=== PATIENT | female | born 1975 | race Caucasian/White ===

== ENCOUNTER 2024-12-28 16:59 | Inpatient (IN) | payer OTHER, SELFPAY ==
[2024-12-28 17:15] VITALS: BP 134/86; PULSE 88; RESP 16; TEMP 37.1; O2SAT 98
[2024-12-28 18:34] VITALS: BMI 24.4
--- NOTE | 2024-12-28 19:14 | PC.NURSE ---
Ligia was admitted to M3 at 1707 from [facility] Pod on 12B from [facility] CCU for treatment following intentional overdose 12/27 on an unknown number of prescribed medications. She was medically cleared. Pt has had numerous stressors including a recent DUI and adult son was recently incarcerated.? On admission she is alert, fully oriented, anxious and extremely ambivalent. She is reluctant to sign in, sign ROIs, choose menu items, etc. Mood is depressed. Affect is very anxious. She denies uditory, visual, tactile, other hallucinations.? She denies ideation, plan or intent to harm self or others currently. Appetite is good,? sleep is poor and focus is impaired.? She denies current physical complaint. She is on q 15 min safety checks.
[2024-12-28 20:00] VITALS: BP 152/74; PULSE 106; RESP 16; TEMP 36.9; O2SAT 97
--- NOTE | 2024-12-29 03:23 | PC.NURSE ---
requesting additional dose of trazodone reporting ''not sleeping well'' educated on use of sleep aid after 0300 time but requests to take. administered as requested.
[2024-12-29 07:00] VITALS: BMI 24.4
[2024-12-29 07:37] VITALS: BP 144/64; PULSE 100; RESP 18; TEMP 36.2; O2SAT 95
--- NOTE | 2024-12-29 08:14 | HO.PM.IMCN ---
History of Present Illness Data of Consult Service Date: 12/29/24 Primary Care Provider: Unknown Physician HPI Reason for consult: Medical H&P 49-year-old female with a past medical history of anxiety disorder, arthritis bipolar 1 disorder, alcohol use disorder, moderate depressive disorder who presented to [facility] with an intentional overdose of lithium. She is admitted to inpatient psychiatric unit for further care. On exam she denies any Review of Systems Review of Systems: Denies any shortness of breath, chest pain, dizziness, lightheadedness, abdominal pain or discomfort, nausea vomiting or diarrhea PMFSH Social History Household Members: None Housing: Apartment Do you presently have visiting nurse or other home services: No Patient Tobacco Use Status: Current someday Tobacco user Tobacco use type: Cigarette Cigarette Packs Per Day: 0 Cigarettes Per Day: 0 Years Smoked: 7 Smoked in Last 30 Days: Yes Patient Interested in Nicotine Replacement: No Patient Given Instructions on How to Stop Smoking: No Second Hand Smoke Exposure: No Currently Displaying Signs/Symptoms of Drug Intoxication Withdrawal: No Have you been hit, kicked, punched, or otherwise hurt by someone within the past year? If so, by whom?: No Do you feel safe in your current relationship?: No Is there a partner from a previous relationship who is making you feel unsafe now?: No Are you made to feel afraid or neglected: No Advance Directives: No Advance Directives Information Provided: No Do you have thoughts of harming others: None Do you have a plan to hurt others: No Plan Recently lost weight without trying: No Eating poorly because of decreased appetite: No Nutrition Risks: No Nutritional Risk Patient : No : No Poor oral hygiene: No service: No Sexual orientation: Straight/Heterosexual Meds Allergies Allergy/AdvReac Type Severity Reaction Status Date / Time No Known Allergies Allergy Unknown UNKNOWN Unverified 02/02/20 17:33 Active Medications: Current Medications Acetaminophen (Acetaminophen 325 Mg Tablet) 650 mg PO Q6H PRN PRN Reason: Headache/Pain, Scale 1-10 Al Hydroxide/Mg Hydroxide (Magnesium Hydrox/Alum Hydrox 30 Ml Oral.Susp) 30 ml PO Q6H PRN PRN Reason: Heartburn/Nausea Cariprazine (Cariprazine Hcl 3 Mg Capsule) 3 mg PO BEDTIME AGUS Last Admin: 12/28/24 21:26 Dose: 3 mg Clonazepam (Clonazepam 0.5 Mg Tablet) 0.5 mg PO DAILY PRN PRN Reason: severe anxiety Lamotrigine (Lamotrigine 25 Mg Tablet) 25 mg PO BEDTIME AGUS Last Admin: 12/28/24 21:27 Dose: 25 mg Magnesium Hydroxide (Milk Of Magnesia 30 Ml Oral.Susp) 30 ml PO DAILY PRN PRN Reason: Constipation Melatonin (Melatonin 3 Mg Tablet) 9 mg PO BEDTIME AGUS Last Admin: 12/28/24 21:26 Dose: 9 mg Multivitamins/Vitamin C (Multivitamin Tablet) 1 tab PO DAILY AGUS Nicotine (Nicotine 21 Mg Patch.Td24) 21 mg TRANSDERMA DAILY PRN PRN Reason: nicotine craving Nicotine Polacrilex (Nicotine Polacrilex 2 Mg Gum) 2 mg BUCCAL Q2H PRN PRN Reason: Nicotine Cravings Quetiapine Fumarate (Quetiapine Fumarate 50 Mg Tablet) 50 mg PO BEDTIME AGUS Last Admin: 12/28/24 21:26 Dose: 50 mg Trazodone HCl (Trazodone Hcl 50 Mg Tablet) 50 mg PO BEDTIME MRX1 PRN PRN Reason: Insomnia Last Admin: 12/29/24 03:22 Dose: 50 mg Home Medications ?Medication ?Instructions ?Recorded ?Confirmed ?Last Taken ?Type cariprazine 3 mg capsule (Vraylar) 3 mg PO DAILY 12/28/24 12/28/24 Unknown History clonazepam 0.5 mg tablet 0.5 mg PO DAILY 12/28/24 12/28/24 Unknown History ibuprofen 600 mg tablet 600 mg PO TID PRN Pain 12/28/24 12/28/24 Unknown History lamotrigine 25 mg tablet 50 mg PO DAILY 12/28/24 12/28/24 Unknown History melatonin 5 mg tablet 5 mg PO DAILY 12/28/24 12/28/24 Unknown History multivitamin with folic acid 400 1 tab PO DAILY 12/28/24 12/28/24 Unknown History mcg tablet (Daily-Bryant (with folic acid)) pregabalin 150 mg capsule 150 mg PO DAILY 12/28/24 12/28/24 Unknown History pregabalin 75 mg capsule 75 mg PO BEDTIME 12/28/24 12/28/24 Unknown History quetiapine 50 mg tablet,extended 50 mg PO BEDTIME 12/28/24 12/28/24 Unknown History release 24 hr tizanidine 4 mg tablet 4 mg PO BID 12/28/24 12/28/24 Unknown History ubrogepant 50 mg tablet (Ubrelvy) 50 mg PO DAILY 12/28/24 12/28/24 Unknown History zolpidem 5 mg tablet 5 mg PO BEDTIME PRN Insomnia 12/28/24 12/28/24 Unknown History Physical Exam Vital Signs and Narrative: Vital Signs: Last Vital Signs Temp 97.1 F 12/29/24 07:37 Pulse 100 12/29/24 07:37 Resp 18 12/29/24 07:37 BP 144/64 H 12/29/24 07:37 Pulse Ox 95 12/29/24 07:37 O2 Del Method Room Air 12/29/24 07:37 BMI result Body Mass Index 24.4 CONST: Alert and oriented, in NAD. Well nourished HEENT: Normocephalic, atraumatic, MMM, Eyes clear, Neck supple RESP: Lungs clear, RRR even and regular HEART:,RRR, S1, S2. No murmur, no edema GI:Abdomen Soft NT, ND. + BS times four :Deferred SKIN: Warm dry and intact, no visible lesions or rashes NEURO:CN II-XII Intact bilaterally, Sensation intact. Speech clear PSYCH: Normal affect Results Labs 12/29/24 07:57 Assessment and Plan (1) Bipolar 1 disorder, depressed, moderate: Status: Acute Plan Bipolar disorder/depression/suicidal ideation Treatment plan per Psychiatry [facility]
--- NOTE | 2024-12-29 08:59 | HO.PSYADMNOT ---
HPI Date of Service: 12/29/24 Chief Complaint: Ingestion of toxic substance, depression Sources of Information: patient interviewed, chart reviewed and crisis/core team assessment reviewed HPI Subjective Notes: Church Warning and Section 12B Healthcare Proxy: No Guardianship: No Medical Problems Affecting Mental Status: No Narrative: Meet with patient on 12/28 at 1912 and again on 12/29/24 at 1030. Patient is a 49 years old cisgender female referred to us from [facility] with history of ADHD and bipolar I he was admitted CCU following a serious intentional overdose on prescribed medications, included Xanax Seroque,l risperidone, tizanidine,and lithium. Patient reported that that the overdose was impulsive and that she did not mean it . 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 These stressors have contributed to a sustained a period of depressive symptoms and suicidal ideation. Patient on admission admit that I took so many pills: Seroquel, risperidone, lithium, tizanidine which was both new and old prescriptions. She said that I did not want to hurt myself. Just wanted more help . Patient is so ambivalent that she can not decided to sign herself in for voluntarily for the treatment or remain on section 12. It takes 2 different person to explain it to her at different times however she still feeling confused with what she needs to do even though she expressed that I want help . Precipitants: She has been sure goal with a lot of stressors. Reported that she lost a lot of things, ensure goal to get help. Reports she has a DUI from last year, lost her job, struggle with financial. Her mom also a year ago, a family young member also lately. She lost of her car and her license. Reports she has limited support from outside. Reports that she is not a big drinker. Last drink was the day before she overdosed but she has been going to AA meeting. She denies other substance use. Denies trauma history. Besides the DUI, does no legal issues. No access to gun. Currently discerned denies SI/SIB/ HI/AVH. No SI be history, denies SI history, denies suicide attempts history. Trouble with sleep: Both falling asleep and staying asleep. Appetite is okay. Mood is anxious, increased anxiety and depression experience 10/10 on a scale of 0-10. However, she states that I am grateful to be here . She is depressed, anxious, ambivalent, but mostly pleasant and cooperative. Goals for this admission is able to reach out for help, and able to walk voluntarily at this senior care after discharge as she has been doing that in the past when she still has her car. History of IPLOCx1 last year when she had manic episode, reported that she was crossing the line/on some worthy at a gas station, impulsive and they called the ambulance to get her to the hospital. . Past Psychiatric History: Hx of 1 [facility] admission last year for manic episode. Has psychiatrist and therapist currently but do not want us to contact them. Do not sign consent to release information to anyone. Medication trial: Risperidone: Feel like she was hitting by the bus when was taking. [place]sey[place] carbonate: She was afraid of kidney function. Trazodone does not work Currently on Seroquel, Lamictal, Vraylar, melatonin, Lyrica, Ambien. Medical Evaluation Reviewed: Hospitalist Leigha Pending [facility] Narrative: Anxiety disorder Arthritis, IBS, Degenerated disc Narrative: Appendix removed in 2018 Family History: She was adopted when she was an infant. Biological mom passed, her dad has bipolar schizophrenic. Social History: She is single, have 2 children S 17 and 23 years old. She has contact with them. 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 Substance History: She had DUI earlier this year, lost her car and license due to drinking. Currently attempted to AA meeting. Last drink was the day before she overdose, denies other substance use Trauma History: Denies trauma history Diagnostics Vital Signs (24Hr): Vital Signs - 24 hr 12/28/24 17:15 12/28/24 20:00 12/29/24 07:37 Temperature 98.8 F 98.4 F 97.1 F Pulse Rate 88 106 H 100 Respiratory Rate 16 16 18 Blood Pressure 134/86 152/74 H 144/64 H Pulse Oximetry 98 97 95 Oxygen Delivery Method Room Air Room Air Room Air BMI result Body Mass Index 24.4 Labs 12/29/24 07:57 Meds/Allergies Meds Home Medications ?Medication ?Instructions ?Recorded ?Confirmed ?Type cariprazine 3 mg capsule (Vraylar) 3 mg PO DAILY 12/28/24 12/28/24 History clonazepam 0.5 mg tablet 0.5 mg PO DAILY 12/28/24 12/28/24 History ibuprofen 600 mg tablet 600 mg PO TID PRN Pain 12/28/24 12/28/24 History lamotrigine 25 mg tablet 50 mg PO DAILY 12/28/24 12/28/24 History melatonin 5 mg tablet 5 mg PO DAILY 12/28/24 12/28/24 History multivitamin with folic acid 400 1 tab PO DAILY 12/28/24 12/28/24 History mcg tablet (Daily-Bryant (with folic acid)) pregabalin 150 mg capsule 150 mg PO DAILY 12/28/24 12/28/24 History pregabalin 75 mg capsule 75 mg PO BEDTIME 12/28/24 12/28/24 History quetiapine 50 mg tablet,extended 50 mg PO BEDTIME 12/28/24 12/28/24 History release 24 hr tizanidine 4 mg tablet 4 mg PO BID 12/28/24 12/28/24 History ubrogepant 50 mg tablet (Ubrelvy) 50 mg PO DAILY 12/28/24 12/28/24 History zolpidem 5 mg tablet 5 mg PO BEDTIME PRN Insomnia 12/28/24 12/28/24 History Allergies Allergies Allergy/AdvReac Type Severity Reaction Status Date / Time No Known Allergies Allergy Unknown UNKNOWN Unverified 02/02/20 17:33 Mental Status Exam Mental Status Exam Narrative: Patient is alert and oriented x4; behavior is cooperative, moderate anxiety and depression; patient is not in distress; dressed in hospital attire with kempt hair and adequate hygiene; mood is described as anxious and affect and mood are congruent; eye contact appropriate; Speech is normal rate, volume and prosody and not pressured; no psychomotor agitation/retardation present; thought process is ambivalent but goal directed; Thought content is on treatmentt, pertinent to relevant topics and without any delusional content, paranoid ideation or grandiosity; denies any SI/SIB/HI. Denies AH and there is no evidence of perceptual disturbance. Patient's insight and judgment poor Assessment & Plan Assessment & Plan (1) Overdose: Status: Acute Code(s): T50.901A - Poisoning by unspecified drugs, medicaments and biological substances, accidental (unintentional), initial encounter (2) Bipolar 1 disorder, depressed, moderate: Status: Acute Code(s): F31.32 - Bipolar disorder, current episode depressed, moderate (3) Alcohol use disorder: Status: Acute Code(s): F10.90 - Alcohol use, unspecified, uncomplicated Plan HPI: Patient is a 49 years old cisgender female referred to us from [facility] with history of ADHD and bipolar I he was admitted CCU following a serious intentional overdose on prescribed medications, included Xanax Seroque,l risperidone, tizanidine, and lithium. Patient reported that that the overdose was impulsive and that she did not mean it . 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 These stressors have contributed to a sustained a period of depressive symptoms and suicidal ideation. Formulation/clinical reasoning: Lots of stressors, loss of license and car last year due to alcohol use, loss of her job last year, son is incarcerated, little support from family. Recently restart on medication after couple of months not seen the outpatient psychiatrist, inconsistent taking medication. History of bipolar 1, history of ADHD and alcohol use. She overdose on prescriptions, with lithium was 1.28 and 1.4 at some point when was just admitted due to overdose. Given the above information, patient would not be safe in less restrictive environment. She will be admitted for her own safety, monitor for mental status change, medication management, provide therapeutic environment for coping skills, provide patient with resources and back to psychiatry services as aftercare upon discharge. Hospital course: 12/28/24: Lamictal 25 mg x2 days, we will titrate up to therapeutic dose. Slow and low. Seroquel 50 mg at bedtime for insomnia/severe anxiety. Klonopin 0.5 twice a day b.i.d. p.r.n. for severe anxiety. Melatonin 9 mg daily at bedtime for insomnia. Reported that she takes 20 mg total a day from outside [id number]. Vraylar 3mg daily for mood. 12/29/24: Lidocaine patch once daily for lower back pain. Tizanidine 4 mg 3 times a day as needed for muscle spasm/pain Plan Patient on 15 minute checks for safety. Admitted to M3- section 12B. Work with treatment team to do collateral and FLU appointment for aftercare. Ltihium level on 12/28 prior. Contact the hospitalist regarding hospitalist consultation on admission: pending. Patient educated on: diagnosis, medication risk/benefits, substance abuse and therapeutic strategies Informed Consent: understands and further education needed Reason for continued inpatient stay Substantial Risk for: harm to self (Reason for admission is overdose on own prescriptions) and med/psych decompensation Statement Statement: I have reviewed the history and physical and performed a pertinent examination on my patient. No changes have occurred unless specified. If the History and Physical was not performed prior to admission, the Hospitalist's service will be consulted for completing the admission physical. Time Spent With Patient Time: Total time managing care of this patient today ____ minutes.
[2024-12-29 09:10] LABS: Alanine Aminotransferase 20 U/L (0-31); Albumin Level 4.8 g/dL (3.5-5.0); Alkaline Phosphatase 49 U/L (39-117); Anion Gap 13 (12-20); Aspartate Amino Transferase 21 U/L (5-31); Blood Urea Nitrogen 6 mg/dL (9-16); Calcium 9.8 mg/dL (8.4-10.2); Carbon Dioxide 27 mmol/L (22-29); Chloride 107 mmol/L (96-108); Cholesterol 171 mg/dL (<200); Creatinine Clr Calc Pharmacy 87.8; Estimated Glomerular Filt Rate > 60; HDL Cholesterol 64 mg/dL (>40); Hemoglobin A1C 122.8515 umol/L; Potassium 4.0 mmol/L (3.3-5.1); Sodium 143 mmol/L (135-145); Total Hemoglobin (HGBA1C) 3567.8624 umol/L; Total Protein 7.5 g/dL (6.5-8.0); Triglycerides 74 mg/dL (<150)
[2024-12-29 09:29] LABS: Free T4 (Free Thyroxine) 1.04 ng/dL (0.71-1.85); Thyroid Stimulating Hormone 2.57 uIU/mL (0.32-4.0)
[2024-12-29 12:17] LABS: Lithium 0.21 mmol/L (0.60-1.20)
[2024-12-29] MEDS: Lidocaine 4 % Patch ADH..PATCH 1 PATCH TRANSDERMA (12:35)
[2024-12-29 19:30] VITALS: BP 146/70; PULSE 83; RESP 18; TEMP 37.1; O2SAT 97
[2024-12-30 07:10] VITALS: BP 114/65; PULSE 95; RESP 20; TEMP 36.4; O2SAT 99
[2024-12-30] MEDS: Milk of Magnesia 30 ML ORAL.SUSP PO (08:46)
[2024-12-30] MEDS: Lidocaine 4 % Patch ADH..PATCH 1 PATCH TRANSDERMA (10:24)
--- NOTE | 2024-12-30 10:34 | P.PNIM_ITS ---
Subjective Subjective Date of Service: 12/30/24 Interval History: Patient is reporting increased vaginal discharge and foul odor. She reports a history of BV. Denies any abdominal pain, denies any dysuria, denies any recent sexual activity. Not concerned for any STDs. Her vitals were stable, she has been afebrile. Review of Systems Denies any shortness of breath, chest pain, dizziness, lightheadedness, abdominal pain or discomfort, nausea vomiting or diarrhea Physical Exam 2 Exam: Exam: CONST: Alert and oriented, in NAD. Well nourished HEENT: Normocephalic, atraumatic, MMM RESP: Lungs clear, RRR even and regular HEART:,RRR, S1, S2. No murmur, no edema GI:Abdomen Soft NT, ND. + BS times four :Deferred SKIN: Warm dry and intact, no visible lesions or rashes NEURO:CN II-XII Intact bilaterally, Sensation intact. Speech clear PSYCH: Normal affect Vital Signs: Vital Signs: Last Vital Signs Temp 97.5 F 12/30/24 07:10 Pulse 95 12/30/24 07:10 Resp 20 12/30/24 07:10 BP 114/65 12/30/24 07:10 Pulse Ox 99 12/30/24 07:10 O2 Del Method Room Air 12/30/24 07:10 BMI result Body Mass Index 24.4 Objective Data Active Medications Acetaminophen (Acetaminophen 325 Mg Tablet) 650 mg PO Q6H PRN PRN Reason: Headache/Pain, Scale 1-10 Last Admin: 12/30/24 02:15 Dose: 650 mg Documented By: DASHAWN Al Hydroxide/Mg Hydroxide (Magnesium Hydrox/Alum Hydrox 30 Ml Oral.Susp) 30 ml PO Q6H PRN PRN Reason: Heartburn/Nausea Cariprazine (Cariprazine Hcl 3 Mg Capsule) 3 mg PO BEDTIME [facility] Last Admin: 12/29/24 21:06 Dose: 3 mg Documented By: GUILLAUME Clonazepam (Clonazepam 0.5 Mg Tablet) 0.5 mg PO DAILY PRN PRN Reason: severe anxiety Lamotrigine (Lamotrigine 25 Mg Tablet) 25 mg PO BID [facility] Last Admin: 12/30/24 10:19 Dose: 25 mg Documented By: ZBIGNIEW Lidocaine (Lidocaine 4 % Patch Adh..Patch) 1 patch TRANSDERMA DAILY [facility]; Protocol Magnesium Hydroxide (Milk Of Magnesia 30 Ml Oral.Susp) 30 ml PO DAILY PRN PRN Reason: Constipation Last Admin: 12/30/24 08:46 Dose: 30 ml Documented By: ZBIGNIEW Melatonin (Melatonin 3 Mg Tablet) 9 mg PO BEDTIME [facility] Last Admin: 12/29/24 21:00 Dose: 9 mg Documented By: GUILLAUME Multivitamins/Vitamin C (Multivitamin Tablet) 1 tab PO DAILY [facility] Last Admin: 12/30/24 08:45 Dose: 1 tab Documented By: ZBIGNIEW Nicotine (Nicotine 21 Mg Patch.Td24) 21 mg TRANSDERMA DAILY PRN PRN Reason: nicotine craving Nicotine Polacrilex (Nicotine Polacrilex 2 Mg Gum) 2 mg BUCCAL Q2H PRN PRN Reason: Nicotine Cravings Pregabalin (Pregabalin 50 Mg Capsule) 50 mg PO BID [facility] Last Admin: 12/30/24 08:45 Dose: 50 mg Documented By: ZBIGNIEW Quetiapine Fumarate (Quetiapine Fumarate 100 Mg Tablet) 100 mg PO BEDTIME [facility] Tizanidine HCl (Tizanidine Hcl 4 Mg Tablet) 4 mg PO TID PRN PRN Reason: lower back pain/muscle spasm Last Admin: 12/30/24 08:45 Dose: 4 mg Documented By: ZBIGNIEW Trazodone HCl (Trazodone Hcl 50 Mg Tablet) 50 mg PO BEDTIME MRX1 PRN PRN Reason: Insomnia Last Admin: 12/30/24 02:16 Dose: 50 mg Documented By: LIARDIP Labs 12/29/24 07:57 Labs: Laboratory Results - last 24 hr 12/29/24 11:45 [place] 0.21 L Assessment and Plan (1) Bacterial vaginosis: Status: Acute Plan Suspected Bacterial Vaginosis Patient has a history of this in the past, symptoms are similar. Will obtain a swab, if positive patient prefers oral medications. Bipolar disorder/depression/suicidal ideation Treatment plan per Psychiatry [facility] Quality Stroke Does the patient have a stroke diagnosis?: No VTE Prior VTE?: No VTE Risk Level:: Medical - low VTE Device Contraindication: Treatment Not Indicated VTE Drug Contraindication: Treatment Not Indicated
--- NOTE | 2024-12-30 11:49 | HO.PSYCHPN ---
Subjective Subjective Date of Service: 12/30/24 Reason For Visit: Ingestion of toxic substance, depression Subjective Notes: Conditional Voluntary Healthcare Proxy: No Guardianship: No Medical Problems Affecting Mental Status: No Interim History: Medical record and nursing notes reviewed; case discussed during rounds with team/nursing staff, and met with patient for supportive therapy/psychoeducation, as well as medication management. Patient slept for 6 hours, compliant with medications, observed visible and social with peers and staff. Anxious, depressed, less ambivalence. She has questioned related to legal. Explained to patient a couple of times, she finally make her decision to sign herself in voluntarily with plan to be discharged next Thursday. She gave an example of someone also overdose and was let go home. Explained to patient that care is individualized. Reports anxiety is better today 5/10. Depression is 4/10. Self reports slept better last night. Discussed with her regarding medication change, she is receptive to the plan. Denies other safety concerns, no suicidal thoughts, no hallucinations. No ADLs issues. Medication Compliance: Yes Side effects from medications: No Attending Groups: Yes Review of Systems Acute medical concerns: No Medical Review of Systems: unchanged Review of Systems Review of Systems Constitutional: Denies fatigue and Denies fever(s) Cardiovascular: Denies chest pain and Denies dyspnea Respiratory: Denies dyspnea Gastrointestinal: Denies abdominal pain Psychiatric: denies suicidal ideation Endocrine: Denies fatigue Yes all other systems are reviewed and are negative Mental Status Exam Mental Status Exam Narrative: Patient is alert and oriented x4; behavior is cooperative, moderate anxiety and depression; patient is not in distress; dressed in casual attire with kempt hair and adequate hygiene; mood is described as anxious and depressed but better and affect and mood are congruent; eye contact appropriate; Speech is normal rate, volume and prosody and not pressured; no psychomotor agitation/retardation present; thought process is less ambivalent but goal directed; Thought content is on treatment, pertinent to relevant topics and without any delusional content, paranoid ideation or grandiosity; denies any SI/SIB/HI. Denies AH and there is no evidence of perceptual disturbance. Patient's insight and judgment improving Diagnostics Vital Signs (24Hr): Vital Signs - 24 hr 12/29/24 19:30 12/30/24 07:10 Temperature 98.7 F 97.5 F Pulse Rate 83 95 Respiratory Rate 18 20 Blood Pressure 146/70 H 114/65 Pulse Oximetry 97 99 Oxygen Delivery Method Room Air Room Air BMI result Body Mass Index 24.4 Labs 12/29/24 07:57 Labs: Laboratory Results - last 48 hr 12/29/24 12/29/24 07:57 11:45 Sodium 143 Potassium 4.0 Chloride 107 Carbon Dioxide 27 Anion Gap 13 BUN 6 L Creatinine 0.77 Estim Creat Clear Calc 87.8 Estimated GFR > 60 Random Glucose 101 Estimat Average Glucose 105 Hemoglobin A1c % 5.3 Calcium 9.8 Total Bilirubin 1.1 H AST 21 ALT 20 Alkaline Phosphatase 49 Total Protein 7.5 Albumin 4.8 Triglycerides 74 Cholesterol 171 LDL Cholesterol, Calc 93 HDL Cholesterol 64 TSH 2.57 Free T4 1.04 [place] 0.21 L Medications Medications Current Medications Acetaminophen (Acetaminophen 325 Mg Tablet) 650 mg PO Q6H PRN PRN Reason: Headache/Pain, Scale 1-10 Last Admin: 12/30/24 02:15 Dose: 650 mg Al Hydroxide/Mg Hydroxide (Magnesium Hydrox/Alum Hydrox 30 Ml Oral.Susp) 30 ml PO Q6H PRN PRN Reason: Heartburn/Nausea Cariprazine (Cariprazine Hcl 3 Mg Capsule) 3 mg PO BEDTIME [facility] Last Admin: 12/29/24 21:06 Dose: 3 mg Clonazepam (Clonazepam 0.5 Mg Tablet) 0.5 mg PO DAILY PRN PRN Reason: severe anxiety Lamotrigine (Lamotrigine 25 Mg Tablet) 25 mg PO BID [facility] Last Admin: 12/30/24 10:19 Dose: 25 mg Lidocaine (Lidocaine 4 % Patch Adh..Patch) 1 patch TRANSDERMA DAILY [facility]; Protocol Magnesium Hydroxide (Milk Of Magnesia 30 Ml Oral.Susp) 30 ml PO DAILY PRN PRN Reason: Constipation Last Admin: 12/30/24 08:46 Dose: 30 ml Melatonin (Melatonin 3 Mg Tablet) 9 mg PO BEDTIME [facility] Last Admin: 12/29/24 21:00 Dose: 9 mg Multivitamins/Vitamin C (Multivitamin Tablet) 1 tab PO DAILY [facility] Last Admin: 12/30/24 08:45 Dose: 1 tab Nicotine (Nicotine 21 Mg Patch.Td24) 21 mg TRANSDERMA DAILY PRN PRN Reason: nicotine craving Nicotine Polacrilex (Nicotine Polacrilex 2 Mg Gum) 2 mg BUCCAL Q2H PRN PRN Reason: Nicotine Cravings Pregabalin (Pregabalin 50 Mg Capsule) 50 mg PO BID [facility] Last Admin: 12/30/24 08:45 Dose: 50 mg Quetiapine Fumarate (Quetiapine Fumarate 100 Mg Tablet) 100 mg PO BEDTIME [facility] Tizanidine HCl (Tizanidine Hcl 4 Mg Tablet) 4 mg PO TID PRN PRN Reason: lower back pain/muscle spasm Last Admin: 12/30/24 08:45 Dose: 4 mg Trazodone HCl (Trazodone Hcl 50 Mg Tablet) 50 mg PO BEDTIME MRX1 PRN PRN Reason: Insomnia Last Admin: 12/30/24 02:16 Dose: 50 mg Allergies Allergies Allergy/AdvReac Type Severity Reaction Status Date / Time No Known Allergies Allergy Unknown UNKNOWN Unverified 02/02/20 17:33 Assessment & Plan Assessment & Plan (1) Bipolar 1 disorder, depressed, moderate: Status: Acute Code(s): F31.32 - Bipolar disorder, current episode depressed, moderate (2) Alcohol use disorder: Status: Acute Code(s): F10.90 - Alcohol use, unspecified, uncomplicated (3) Overdose: Status: Acute Code(s): T50.901A - Poisoning by unspecified drugs, medicaments and biological substances, accidental (unintentional), initial encounter Plan HPI: Patient is a 49 years old cisgender female referred to us from [facility] with history of ADHD and bipolar I he was admitted CCU following a serious intentional overdose on prescribed medications, included Xanax Seroque, risperidone, tizanidine, and lithium (some of them are from old bottle). Patient reported that that the overdose was impulsive and that she did not mean it . 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 These stressors have contributed to a sustained a period of depressive symptoms and suicidal ideation. Formulation/clinical reasoning: Lots of stressors, loss of license and car last year due to alcohol use, loss of her job last year, son is incarcerated, little support from family. Recently restart on medication after couple of months not seen the outpatient psychiatrist, inconsistent taking medication. History of bipolar 1, history of ADHD and alcohol use. She overdose on prescriptions, with lithium was 1.28 and 1.4 at some point when was just admitted due to overdose. Given the above information, patient would not be safe in less restrictive environment. She will be admitted for her own safety, monitor for mental status change, medication management, provide therapeutic environment for coping skills, provide patient with resources and back to psychiatry services as aftercare upon discharge. Hospital course: 12/28/24: Lamictal 25 mg x2 days, we will titrate up to therapeutic dose. Slow and low. Seroquel 50 mg at bedtime for insomnia/severe anxiety. Klonopin 0.5 twice a day b.i.d. p.r.n. for severe anxiety. Melatonin 9 mg daily at bedtime for insomnia. Reported that she takes 20 mg total a day from outside [id number]. Vraylar 3mg daily for mood. 12/29/24: Lidocaine patch once daily for lower back pain. Tizanidine 4 mg 3 times a day as needed for muscle spasm/pain Lyrika 50mg BID for severe back pain 12/30/24: Patient slept for 6 hours, compliant with medications, observed visible and social with peers and staff. Anxious, depressed, less ambivalence. She has questioned related to legal. Explained to patient a couple of times, she finally make her decision to sign herself in voluntarily with plan to be discharged next Thursday. She gave an example of someone also overdose and was let go home. Explained to patient that care is individualized. Reports anxiety is better today 5/10. Depression is 4/10. Self reports slept better last night. Discussed with her regarding medication change, she is receptive to the plan. Denies other safety concerns, no suicidal thoughts, no hallucinations. No ADLs issues. Increased Lamictal 25 daily to BID. Increase Seroquel 100mg at HS for severe insomnia. Remind patient she has lidocaine patch daily for her back pain in addition to Lyrica. Plan Patient on 15 minute checks for safety. Admitted to [facility]- signed CV on 12/30/24 with tentative plan to be discharged on Thursday on 01/04/25. Work with treatment team to do collateral and FLU appointment for aftercare. [place] level on 12/28 prior to transferred from [facility] 0.66. on 12/29/24: 0.[address]. [address] for hospitalist for possible bacterial vagionosis: Test +. Hospitalist notified: pending treatment Patient educated on: diagnosis, medication risk/benefits, substance abuse and therapeutic strategies Informed Consent: understands Reason for continued inpatient stay Substantial Risk for: med/psych decompensation Time Spent With Patient Time: Total time managing care of this patient today ____ minutes.
[2024-12-30 14:42] LABS: Bacterial Vaginosis PCR POSITIVE (Negative); Candida Group PCR NOT DETECTED (Not Detect); Candida glab krusei PCR NOT DETECTED (Not Detect); Trichomonas vaginalis PCR NOT DETECTED (Not Detect)
[2024-12-30 19:30] VITALS: BP 158/66; PULSE 100; RESP 16; TEMP 36.3; O2SAT 100
[2024-12-31 09:03] VITALS: BP 145/63; PULSE 94; RESP 16; TEMP 36.8; O2SAT 97
[2024-12-31] MEDS: Lidocaine 4 % Patch ADH..PATCH 1 PATCH TRANSDERMA (11:21)
--- NOTE | 2024-12-31 14:50 | P.PNPSI_ITS ---
Subjective Subjective Date of Service: 12/31/24 Reason For Visit: Ingestion of toxic substance, depression Interim History: calm, cooperative, pleasant. c/o insomnia. agree to increase trazodone. no other requests or complaints. per staff, SI, CV. BV POS, flagyl started. dep 5 anx 9. xanaxflex and trazodone helpful for sleep. slept 7 hours. Mental Status Exam Mental Status Exam Narrative: Patient is alert and oriented x4; behavior is cooperative, moderate anxiety and depression; patient is not in distress; dressed in casual attire with kempt hair and adequate hygiene; mood is described as better and affect and mood are congruent; eye contact appropriate; Speech is normal rate, volume and prosody and not pressured; no psychomotor agitation/retardation present; thought process is goal directed; Thought content is on treatment, pertinent to relevant topics and without any delusional content, paranoid ideation or grandiosity; no SI/HI/AVH expressed. Patient's insight and judgment improving Diagnostics Vital Signs (24Hr): Vital Signs - 24 hr 12/30/24 19:30 12/31/24 09:03 Temperature 97.3 F 98.2 F Pulse Rate 100 94 Respiratory Rate 16 16 Blood Pressure 158/66 H 145/63 H Pulse Oximetry 100 97 Oxygen Delivery Method Room Air Room Air BMI result Body Mass Index 24.4 Labs 12/29/24 07:57 Labs: Laboratory Results - last 48 hr 12/30/24 13:26 T. vaginalis (PCR) NOT DETECTED Bact vaginosis (PCR) POSITIVE A C. krusei/glabrata (PCR) NOT DETECTED Jennifer group (PCR) NOT DETECTED Medications Medications Current Medications Acetaminophen (Acetaminophen 325 Mg Tablet) 650 mg PO Q6H PRN PRN Reason: Headache/Pain, Scale 1-10 Last Admin: 12/30/24 14:54 Dose: 650 mg Al Hydroxide/Mg Hydroxide (Magnesium Hydrox/Alum Hydrox 30 Ml Oral.Susp) 30 ml PO Q6H PRN PRN Reason: Heartburn/Nausea Cariprazine (Cariprazine Hcl 3 Mg Capsule) 3 mg PO BEDTIME [facility] Last Admin: 12/30/24 20:13 Dose: 3 mg Clonazepam (Clonazepam 0.5 Mg Tablet) 0.5 mg PO DAILY PRN PRN Reason: severe anxiety Last Admin: 12/31/24 01:53 Dose: 0.5 mg Lamotrigine (Lamotrigine 25 Mg Tablet) 25 mg PO BID [facility] Last Admin: 12/31/24 08:50 Dose: 25 mg Lidocaine (Lidocaine 4 % Patch Adh..Patch) 1 patch TRANSDERMA DAILY [facility]; Protocol Last Admin: 12/31/24 11:21 Dose: 1 patch Magnesium Hydroxide (Milk Of Magnesia 30 Ml Oral.Susp) 30 ml PO DAILY PRN PRN Reason: Constipation Last Admin: 12/30/24 08:46 Dose: 30 ml Melatonin (Melatonin 3 Mg Tablet) 9 mg PO BEDTIME [facility] Last Admin: 12/30/24 20:13 Dose: 9 mg Metronidazole (Metronidazole 500 Mg Tablet) 500 mg PO Q12H [facility] Stop: 01/06/25 19:59 Last Admin: 12/31/24 08:17 Dose: 500 mg Multivitamins/Vitamin C (Multivitamin Tablet) 1 tab PO DAILY [facility] Last Admin: 12/31/24 08:50 Dose: 1 tab Nicotine (Nicotine 21 Mg Patch.Td24) 21 mg TRANSDERMA DAILY PRN PRN Reason: nicotine craving Nicotine Polacrilex (Nicotine Polacrilex 2 Mg Gum) 2 mg BUCCAL Q2H PRN PRN Reason: Nicotine Cravings Pregabalin (Pregabalin 50 Mg Capsule) 50 mg PO BID [facility] Last Admin: 12/31/24 08:50 Dose: 50 mg Quetiapine Fumarate (Quetiapine Fumarate 100 Mg Tablet) 100 mg PO BEDTIME [facility] Last Admin: 12/30/24 20:14 Dose: 100 mg Tizanidine HCl (Tizanidine Hcl 4 Mg Tablet) 4 mg PO TID PRN PRN Reason: lower back pain/muscle spasm Last Admin: 12/31/24 08:51 Dose: 4 mg Trazodone HCl (Trazodone Hcl 25 Mg Halftab) 75 mg PO BEDTIME [facility] Trazodone HCl (Trazodone Hcl 25 Mg Halftab) 75 mg PO BEDTIME PRN PRN Reason: insomnia Allergies Allergies Allergy/AdvReac Type Severity Reaction Status Date / Time No Known Allergies Allergy Unknown UNKNOWN Unverified 02/02/20 17:33 Assessment & Plan Assessment & Plan (1) Bipolar 1 disorder, depressed, moderate: Status: Acute Code(s): F31.32 - Bipolar disorder, current episode depressed, moderate (2) Alcohol use disorder: Status: Acute Code(s): F10.90 - Alcohol use, unspecified, uncomplicated (3) Overdose: Status: Acute Code(s): T50.901A - Poisoning by unspecified drugs, medicaments and biological substances, accidental (unintentional), initial encounter Plan HPI: Patient is a 49 years old cisgender female referred to us from [facility] with history of ADHD and bipolar I he was admitted CCU following a serious intentional overdose on prescribed medications, included Xanax Seroque, risperidone, tizanidine, and lithium (some of them are from old bottle). Patient reported that that the overdose was impulsive and that she did not mean it . 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 These stressors have contributed to a sustained a period of depressive symptoms and suicidal ideation. Formulation/clinical reasoning: Lots of stressors, loss of license and car last year due to alcohol use, loss of her job last year, son is incarcerated, little support from family. Recently restart on medication after couple of months not seen the outpatient psychiatrist, inconsistent taking medication. History of bipolar 1, history of ADHD and alcohol use. She overdose on prescriptions, with lithium was 1.28 and 1.4 at some point when was just admitted due to overdose. Given the above information, patient would not be safe in less restrictive environment. She will be admitted for her own safety, monitor for mental status change, medication management, provide therapeutic environment for coping skills, provide patient with resources and back to psychiatry services as aftercare upon discharge. Hospital course: 12/28/24: Lamictal 25 mg x2 days, we will titrate up to therapeutic dose. Slow and low. Seroquel 50 mg at bedtime for insomnia/severe anxiety. Klonopin 0.5 twice a day b.i.d. p.r.n. for severe anxiety. Melatonin 9 mg daily at bedtime for insomnia. Reported that she takes 20 mg total a day from outside [id number]. Vraylar 3mg daily for mood. 12/29/24: Lidocaine patch once daily for lower back pain. Tizanidine 4 mg 3 times a day as needed for muscle spasm/pain Lyrika 50mg BID for severe back pain 12/30/24: Patient slept for 6 hours, compliant with medications, observed visible and social with peers and staff. Anxious, depressed, less ambivalence. She has questioned related to legal. Explained to patient a couple of times, she finally make her decision to sign herself in voluntarily with plan to be discharged next Thursday. She gave an example of someone also overdose and was let go home. Explained to patient that care is individualized. Reports anxiety is better today 5/10. Depression is 4/10. Self reports slept better last night. Discussed with her regarding medication change, she is receptive to the plan. Denies other safety concerns, no suicidal thoughts, no hallucinations. No ADLs issues. Increased Lamictal 25 daily to BID. Increase Seroquel 100mg at HS for severe insomnia. Remind patient she has lidocaine patch daily for her back pain in addition to Lyrica. 12/31: slept 7 hours. pleasant, cooperative. c/o insomnia nevertheless, trazodone changed to 75 mg scheduled and 75 mg PRN. continue current mgmt otherwise. Plan Patient on 15 minute checks for safety. Admitted to - signed on 12/30/24 with tentative plan to be discharged on Thursday on 01/04/25. Work with treatment team to do collateral and FLU appointment for aftercare. [place] level on 12/28 prior to transferred from [facility] 0.66. on 12/29/24: 0.21. [address] for hospitalist for possible bacterial vagionosis: Test +. Hospitalist notified: pending treatment Reason for continued inpatient stay Substantial Risk for: inability to function Time Spent With Patient Time: Total time managing care of this patient today ____ minutes.
[2024-12-31 19:20] VITALS: BP 143/76; PULSE 85; RESP 16; TEMP 37.3; O2SAT 98
[2024-12-31] MEDS: traZODone HCL 25 MG HALFTAB 75 MG PO (21:06)
[2025-01-01] MEDS: traZODone HCL 25 MG HALFTAB 75 MG PO (02:00)
[2025-01-01 08:00] VITALS: BP 120/66; PULSE 100; RESP 16; TEMP 36.4; O2SAT 98
[2025-01-01] MEDS: Milk of Magnesia 30 ML ORAL.SUSP PO (08:42)
[2025-01-01] MEDS: Lidocaine 4 % Patch ADH..PATCH 1 PATCH TRANSDERMA (09:11)
--- NOTE | 2025-01-01 15:59 | HO.PSYCHPN ---
Subjective Subjective Date of Service: 01/01/25 Reason For Visit: Ingestion of toxic substance, depression Interim History: calm, cooperative, pleasant. long discussion held re evidence-based Tx for bipolar disorder and rachael. pt is intelligent and informed. ultimately decides to return to lithium and DC lamictal for mood stabilization. very concerned about experiencing another manic episode due to the damage she did to her life during her most recent one. slept a bit better on increased trazodone dosing. will try slightly higher initial dose tonight. per staff, dep/anx. taking xanaflex and trazodone for sleep. slept 7 hours. Mental Status Exam Mental Status Exam Narrative: Patient is alert and oriented x4; behavior is cooperative, moderate anxiety and depression; patient is not in distress; dressed in casual attire with kempt hair and adequate hygiene; mood is described as better and affect and mood are congruent; eye contact appropriate; Speech is normal rate, volume and prosody and not pressured; no psychomotor agitation/retardation present; thought process is goal directed; Thought content is on treatment, pertinent to relevant topics and without any delusional content, paranoid ideation or grandiosity; no SI/HI/AVH expressed. Patient's insight and judgment improving Diagnostics Vital Signs (24Hr): Vital Signs - 24 hr 12/31/24 19:20 01/01/25 08:00 Temperature 99.1 F 97.6 F Pulse Rate 85 100 Respiratory Rate 16 16 Blood Pressure 143/76 H 120/66 Pulse Oximetry 98 98 Oxygen Delivery Method Room Air Room Air BMI result Body Mass Index 24.4 Labs 12/29/24 07:57 Medications Medications Current Medications Acetaminophen (Acetaminophen 325 Mg Tablet) 650 mg PO Q6H PRN PRN Reason: Headache/Pain, Scale 1-10 Last Admin: 01/01/25 08:42 Dose: 650 mg Al Hydroxide/Mg Hydroxide (Magnesium Hydrox/Alum Hydrox 30 Ml Oral.Susp) 30 ml PO Q6H PRN PRN Reason: Heartburn/Nausea Cariprazine (Cariprazine Hcl 3 Mg Capsule) 3 mg PO BEDTIME AGUS Last Admin: 12/31/24 20:53 Dose: 3 mg Clonazepam (Clonazepam 0.5 Mg Tablet) 0.5 mg PO DAILY PRN PRN Reason: severe anxiety Last Admin: 01/01/25 02:01 Dose: 0.5 mg Lidocaine (Lidocaine 4 % Patch Adh..Patch) 1 patch TRANSDERMA DAILY [facility]; Protocol Last Admin: 01/01/25 09:11 Dose: 1 patch [place] Carbonate ([place] Carbonate Er 450 Mg Tablet.Er) 450 mg PO BID [facility] Last Admin: 01/01/25 12:14 Dose: 450 mg Magnesium Hydroxide (Milk Of Magnesia 30 Ml Oral.Susp) 30 ml PO DAILY PRN PRN Reason: Constipation Last Admin: 01/01/25 08:42 Dose: 30 ml Melatonin (Melatonin 3 Mg Tablet) 9 mg PO BEDTIME [facility] Last Admin: 12/31/24 20:54 Dose: 9 mg Metronidazole (Metronidazole 500 Mg Tablet) 500 mg PO Q12H [facility] Stop: 01/06/25 19:59 Last Admin: 01/01/25 08:30 Dose: 500 mg Multivitamins/Vitamin C (Multivitamin Tablet) 1 tab PO DAILY [facility] Last Admin: 01/01/25 08:30 Dose: 1 tab Nicotine (Nicotine 21 Mg Patch.Td24) 21 mg TRANSDERMA DAILY PRN PRN Reason: nicotine craving Nicotine Polacrilex (Nicotine Polacrilex 2 Mg Gum) 2 mg BUCCAL Q2H PRN PRN Reason: Nicotine Cravings Pregabalin (Pregabalin 50 Mg Capsule) 50 mg PO BID [facility] Last Admin: 01/01/25 08:31 Dose: 50 mg Quetiapine Fumarate (Quetiapine Fumarate 100 Mg Tablet) 100 mg PO BEDTIME [facility] Last Admin: 12/31/24 20:54 Dose: 100 mg Tizanidine HCl (Tizanidine Hcl 4 Mg Tablet) 4 mg PO TID PRN PRN Reason: lower back pain/muscle spasm Last Admin: 01/01/25 02:00 Dose: 4 mg Trazodone HCl (Trazodone Hcl 100 Mg Tablet) 100 mg PO BEDTIME [facility] Trazodone HCl (Trazodone Hcl 50 Mg Tablet) 50 mg PO BEDTIME PRN PRN Reason: insomnia Allergies Allergies Allergy/AdvReac Type Severity Reaction Status Date / Time No Known Allergies Allergy Unknown UNKNOWN Unverified 02/02/20 17:33 Assessment & Plan Assessment & Plan (1) Bipolar 1 disorder, depressed, moderate: Status: Acute Code(s): F31.32 - Bipolar disorder, current episode depressed, moderate (2) Alcohol use disorder: Status: Acute Code(s): F10.90 - Alcohol use, unspecified, uncomplicated (3) Overdose: Status: Acute Code(s): T50.901A - Poisoning by unspecified drugs, medicaments and biological substances, accidental (unintentional), initial encounter Plan HPI: Patient is a 49 years old cisgender female referred to us from [facility] with history of ADHD and bipolar I he was admitted CCU following a serious intentional overdose on prescribed medications, included Xanax Seroque, risperidone, tizanidine, and lithium (some of them are from old bottle). Patient reported that that the overdose was impulsive and that she did not mean it . 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 These stressors have contributed to a sustained a period of depressive symptoms and suicidal ideation. Formulation/clinical reasoning: Lots of stressors, loss of license and car last year due to alcohol use, loss of her job last year, son is incarcerated, little support from family. Recently restart on medication after couple of months not seen the outpatient psychiatrist, inconsistent taking medication. History of bipolar 1, history of ADHD and alcohol use. She overdose on prescriptions, with lithium was 1.28 and 1.4 at some point when was just admitted due to overdose. Given the above information, patient would not be safe in less restrictive environment. She will be admitted for her own safety, monitor for mental status change, medication management, provide therapeutic environment for coping skills, provide patient with resources and back to psychiatry services as aftercare upon discharge. Hospital course: 12/28/24: Lamictal 25 mg x2 days, we will titrate up to therapeutic dose. Slow and low. Seroquel 50 mg at bedtime for insomnia/severe anxiety. Klonopin 0.5 twice a day b.i.d. p.r.n. for severe anxiety. Melatonin 9 mg daily at bedtime for insomnia. Reported that she takes 20 mg total a day from outside [id number]. Vraylar 3mg daily for mood. 12/29/24: Lidocaine patch once daily for lower back pain. Tizanidine 4 mg 3 times a day as needed for muscle spasm/pain Lyrika 50mg BID for severe back pain 12/30/24: Patient slept for 6 hours, compliant with medications, observed visible and social with peers and staff. Anxious, depressed, less ambivalence. She has questioned related to legal. Explained to patient a couple of times, she finally make her decision to sign herself in voluntarily with plan to be discharged next Thursday. She gave an example of someone also overdose and was let go home. Explained to patient that care is individualized. Reports anxiety is better today 5/10. Depression is 4/10. Self reports slept better last night. Discussed with her regarding medication change, she is receptive to the plan. Denies other safety concerns, no suicidal thoughts, no hallucinations. No ADLs issues. Increased Lamictal 25 daily to BID. Increase Seroquel 100mg at HS for severe insomnia. Remind patient she has lidocaine patch daily for her back pain in addition to Lyrica. 12/31: slept 7 hours. pleasant, cooperative. c/o insomnia nevertheless, trazodone changed to 75 mg scheduled and 75 mg PRN. continue current mgmt otherwise. 01/01: slept 7 hours. increase scheduled trazodone to 100 mg, decrease PRN trazodone to 50 mg. DC lamictal. start lithium 450 BID. otherwise continue current mgmt. wellbutrin also discussed as antidepressant for use in bipolar disorder. Plan Patient on 15 minute checks for safety. Admitted to - [facility] on 12/30/24 with tentative plan to be discharged on Thursday on 01/04/25. Work with treatment team to do collateral and FLU appointment for aftercare. [place] level on 12/28 prior to transferred from [facility] 0.66. on 12/29/24: 0.[address]. [address] for hospitalist for possible bacterial vagionosis: Test +. Hospitalist notified: pending treatment Reason for continued inpatient stay Substantial Risk for: harm to self, inability to function and rapid decompensation Time Spent With Patient Time: Total time managing care of this patient today __45__ minutes.
[2025-01-01 19:47] VITALS: BP 130/65; PULSE 79; RESP 16; TEMP 36.8; O2SAT 99
[2025-01-02] MEDS: Lidocaine 4 % Patch ADH..PATCH 1 PATCH TRANSDERMA (08:38)
[2025-01-02 18:49] VITALS: BP 121/64; PULSE 77; RESP 18; TEMP 37.1; O2SAT 96
--- NOTE | 2025-01-02 19:21 | P.PNPSI_ITS ---
Subjective Subjective Date of Service: 01/02/25 Reason For Visit: Ingestion of toxic substance, depression Subjective Notes: Conditional Voluntary Healthcare Proxy: No Guardianship: No Medical Problems Affecting Mental Status: No Interim History: Medical record and nursing notes reviewed; case discussed during rounds with team/nursing staff, and met with patient for supportive therapy/psychoeducation, as well as medication management. Patient slept for 6 hours compliant with medication. Denies side effects. Reported that she different scheduled sleeping compared to the roommate which is hard for to stay asleep as roommate was up a couple of times for snack. Reported that she feels happy with started lithium her bipolar. Requests to reduce trazodone down to 75 mg at bedtime as she felt 100 mg is too much. She also happy to to start PHP after discharge. Reported the appointment with her outpatient psychiatrist is on January 16. Denies other safety concerns. Continued to improve in mood, feeling anxious but denies depression. Reported that baseline she has a lot of anxiety. Pain is under control. Medication Compliance: Yes Side effects from medications: No Attending Groups: Yes Review of Systems Acute medical concerns: No Medical Review of Systems: unchanged Review of Systems Review of Systems Constitutional: Denies fatigue and Denies fever(s) Cardiovascular: Denies chest pain and Denies dyspnea Respiratory: Denies dyspnea Gastrointestinal: Denies abdominal pain Psychiatric: denies suicidal ideation Endocrine: Denies fatigue Yes all other systems are reviewed and are negative Mental Status Exam Mental Status Exam Narrative: Patient is alert and oriented x4; behavior is cooperative, less anxiety and depression; patient is not in distress; dressed in casual attire with kempt hair and adequate hygiene; mood is described as better and affect and mood are congruent; eye contact appropriate; Speech is normal rate, volume and prosody and not pressured; no psychomotor agitation/retardation present; thought process is goal directed; Thought content is on treatment, pertinent to relevant topics and without any delusional content, paranoid ideation or grandiosity; no SI/HI/AVH expressed. Patient's insight and judgment improving Diagnostics Vital Signs (24Hr): Vital Signs - 24 hr 01/01/25 19:47 01/02/25 18:49 Temperature 98.2 F 98.8 F Pulse Rate 79 77 Respiratory Rate 16 18 Blood Pressure 130/65 121/64 Pulse Oximetry 99 96 Oxygen Delivery Method Room Air Room Air BMI result Body Mass Index 24.4 Labs 12/29/24 07:57 Medications Medications Current Medications Acetaminophen (Acetaminophen 325 Mg Tablet) 650 mg PO Q6H PRN PRN Reason: Headache/Pain, Scale 1-10 Last Admin: 01/02/25 14:38 Dose: 650 mg Al Hydroxide/Mg Hydroxide (Magnesium Hydrox/Alum Hydrox 30 Ml Oral.Susp) 30 ml PO Q6H PRN PRN Reason: Heartburn/Nausea Cariprazine (Cariprazine Hcl 3 Mg Capsule) 3 mg PO BEDTIME [facility] Last Admin: 01/01/25 20:12 Dose: 3 mg Clonazepam (Clonazepam 0.5 Mg Tablet) 0.5 mg PO DAILY PRN PRN Reason: severe anxiety Last Admin: 01/02/25 01:23 Dose: 0.5 mg Lidocaine (Lidocaine 4 % Patch Adh..Patch) 1 patch TRANSDERMA DAILY [facility]; Protocol Last Admin: 01/02/25 08:38 Dose: 1 patch [place] Carbonate ([place] Carbonate Er 450 Mg Tablet.Er) 450 mg PO BID [facility] Last Admin: 01/02/25 08:27 Dose: 450 mg Magnesium Hydroxide (Milk Of Magnesia 30 Ml Oral.Susp) 30 ml PO DAILY PRN PRN Reason: Constipation Last Admin: 01/01/25 08:42 Dose: 30 ml Melatonin (Melatonin 3 Mg Tablet) 9 mg PO BEDTIME [facility] Last Admin: 01/01/25 20:13 Dose: 9 mg Metronidazole (Metronidazole 500 Mg Tablet) 500 mg PO Q12H [facility] Stop: 01/06/25 19:59 Last Admin: 01/02/25 08:27 Dose: 500 mg Multivitamins/Vitamin C (Multivitamin Tablet) 1 tab PO DAILY [facility] Last Admin: 01/02/25 08:27 Dose: 1 tab Nicotine (Nicotine 21 Mg Patch.Td24) 21 mg TRANSDERMA DAILY PRN PRN Reason: nicotine craving Nicotine Polacrilex (Nicotine Polacrilex 2 Mg Gum) 2 mg BUCCAL Q2H PRN PRN Reason: Nicotine Cravings Polyethylene Glycol (Polyethylene Glycol 3350 17 Gm Powd.Pack) 17 gm PO DAILY [facility] Last Admin: 01/02/25 08:27 Dose: 17 gm Pregabalin (Pregabalin 50 Mg Capsule) 50 mg PO BID [facility] Last Admin: 01/02/25 08:27 Dose: 50 mg Quetiapine Fumarate (Quetiapine Fumarate 100 Mg Tablet) 100 mg PO BEDTIME [facility] Last Admin: 01/01/25 20:12 Dose: 100 mg Tizanidine HCl (Tizanidine Hcl 4 Mg Tablet) 4 mg PO TID PRN PRN Reason: lower back pain/muscle spasm Last Admin: 01/02/25 12:50 Dose: 4 mg Trazodone HCl (Trazodone Hcl 100 Mg Tablet) 100 mg PO BEDTIME [facility] Last Admin: 01/01/25 20:12 Dose: 100 mg Trazodone HCl (Trazodone Hcl 50 Mg Tablet) 50 mg PO BEDTIME PRN PRN Reason: insomnia Allergies Allergies Allergy/AdvReac Type Severity Reaction Status Date / Time No Known Allergies Allergy Unknown UNKNOWN Unverified 02/02/20 17:33 Assessment & Plan Assessment & Plan (1) Bipolar 1 disorder, depressed, moderate: Status: Acute Code(s): F31.32 - Bipolar disorder, current episode depressed, moderate (2) Alcohol use disorder: Status: Acute Code(s): F10.90 - Alcohol use, unspecified, uncomplicated (3) Overdose: Status: Acute Code(s): T50.901A - Poisoning by unspecified drugs, medicaments and biological substances, accidental (unintentional), initial encounter Plan HPI: Patient is a 49 years old cisgender female referred to us from [facility] with history of ADHD and bipolar I he was admitted CCU following a serious intentional overdose on prescribed medications, included Xanax Seroque, risperidone, tizanidine, and lithium (some of them are from old bottle). Patient reported that that the overdose was impulsive and that she did not mean it . 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 These stressors have contributed to a sustained a period of depressive symptoms and suicidal ideation. Formulation/clinical reasoning: Lots of stressors, loss of license and car last year due to alcohol use, loss of her job last year, son is incarcerated, little support from family. Recently restart on medication after couple of months not seen the outpatient psychiatrist, inconsistent taking medication. History of bipolar 1, history of ADHD and alcohol use. She overdose on prescriptions, with lithium was 1.28 and 1.4 at some point when was just admitted due to overdose. Given the above information, patient would not be safe in less restrictive environment. She will be admitted for her own safety, monitor for mental status change, medication management, provide therapeutic environment for coping skills, provide patient with resources and back to psychiatry services as aftercare upon discharge. Hospital course: 12/28/24: Lamictal 25 mg x2 days, we will titrate up to therapeutic dose. Slow and low. Seroquel 50 mg at bedtime for insomnia/severe anxiety. Klonopin 0.5 twice a day b.i.d. p.r.n. for severe anxiety. Melatonin 9 mg daily at bedtime for insomnia. Reported that she takes 20 mg total a day from outside [id number]. Vraylar 3mg daily for mood. 12/29/24: Lidocaine patch once daily for lower back pain. Tizanidine 4 mg 3 times a day as needed for muscle spasm/pain Lyrika 50mg BID for severe back pain 12/30/24: Patient slept for 6 hours, compliant with medications, observed visible and social with peers and staff. Anxious, depressed, less ambivalence. She has questioned related to legal. Explained to patient a couple of times, she finally make her decision to sign herself in voluntarily with plan to be discharged next Thursday. She gave an example of someone also overdose and was let go home. Explained to patient that care is individualized. Reports anxiety is better today 5/10. Depression is 4/10. Self reports slept better last night. Discussed with her regarding medication change, she is receptive to the plan. Denies other safety concerns, no suicidal thoughts, no hallucinations. No ADLs issues. Increased Lamictal 25 daily to BID. Increase Seroquel 100mg at HS for severe insomnia. Remind patient she has lidocaine patch daily for her back pain in addition to Lyrica. 12/31: slept 7 hours. pleasant, cooperative. c/o insomnia nevertheless, trazodone changed to 75 mg scheduled and 75 mg PRN. continue current mgmt otherwise. 01/01: slept 7 hours. increase scheduled trazodone to 100 mg, decrease PRN trazodone to 50 mg. DC lamictal. start lithium 450 BID. otherwise continue current mgmt. wellbutrin also discussed as antidepressant for use in bipolar disorder. 01/02/25: Patient slept for 6 hours compliant with medication. Denies side effects. Reported that she different scheduled sleeping compared to the roommate which is hard for to stay asleep as roommate was up a couple of times for snack. Reported that she feels happy with started lithium her bipolar. Requests to reduce trazodone down to 75 mg at bedtime as she felt 100 mg is too much. She also happy to to start PHP after discharge. Reported the appointment with her outpatient psychiatrist is on January 16. Denies other safety concerns. Continued to improve in mood, feeling anxious but denies depression. Reported that baseline she has a lot of anxiety. Pain is under control. With plans to PHP outpatient psychiatrist in place, patient will be safe to discharge this Thursday as plan from last week. We will have the outpatient provider/PHP provider to continue monitor for lithium level and titrate medication. Do need to sign the house le out to ex- as she is living on Thursday. Plan Patient on 15 minute checks for safety. Admitted to - signed CV on 12/30/24 with tentative plan to be discharged on Thursday on 01/04/25. Work with treatment team to do collateral and FLU appointment for aftercare. [place] level on 12/28 prior to transferred from [facility] 0.66. on 12/29/24: 0.21. [address] for hospitalist for possible bacterial vagionosis: Test +. Hospitalist notified: started on Antibiotic BID. Patient educated on: diagnosis, medication risk/benefits and therapeutic strategies Informed Consent: understands Reason for continued inpatient stay Substantial Risk for: med/psych decompensation Time Spent With Patient Time: Total time managing care of this patient today ____ minutes.
[2025-01-02 20:00] VITALS: BP 133/67; PULSE 84; RESP 14; TEMP 36.4; O2SAT 97
[2025-01-02] MEDS: traZODone HCL 25 MG HALFTAB 75 MG PO (20:55)
[2025-01-03 07:26] VITALS: BP 120/66; PULSE 101; RESP 16; TEMP 36.8; O2SAT 98
[2025-01-03] MEDS: Lidocaine 4 % Patch ADH..PATCH 1 PATCH TRANSDERMA (14:39)
[2025-01-03 20:00] VITALS: BP 132/70; PULSE 83; RESP 14; TEMP 36.3; O2SAT 98
[2025-01-03] MEDS: traZODone HCL 25 MG HALFTAB 75 MG PO (20:54)
--- NOTE | 2025-01-03 21:40 | HO.PSYCHPN ---
Subjective Subjective Date of Service: 01/03/25 Reason For Visit: Ingestion of toxic substance, depression Subjective Notes: Conditional Voluntary Healthcare Proxy: No Guardianship: No Medical Problems Affecting Mental Status: No Interim History: Medical record and nursing notes reviewed; case discussed during rounds with team/nursing staff, and met with patient for supportive therapy/psychoeducation, as well as medication management. Sleep is not bad, interrupted better roommate, compliant with medications. Denies side effects. Have bowel movement today. Denies safety concerns. Reports baseline anxiety, but denies depression. [place] [facility] [place] is aware that lithium level need to be drawn by the end of this week which she can ask outpatient psychiatrist to order the labs work for her. She requests Seroquel changed to extended release which was not carrying over here. She needs to go with outpatient provider to habit change after discharge. Refused the MiraLax this morning, but she as to take it in the evening. Provider reviewed medication list with patient. We will send medication to preferred pharmacy for 30 day supply upon discharge . She is happy that the pain is under control Medication Compliance: Yes Side effects from medications: No Attending Groups: Yes Review of Systems Acute medical concerns: No Medical Review of Systems: unchanged Review of Systems Review of Systems Constitutional: Denies fatigue and Denies fever(s) Cardiovascular: Denies chest pain and Denies dyspnea Respiratory: Denies dyspnea Gastrointestinal: Denies abdominal pain Psychiatric: denies suicidal ideation Endocrine: Denies fatigue Yes all other systems are reviewed and are negative Mental Status Exam Mental Status Exam Narrative: Patient is alert and oriented x4; behavior is cooperative, less anxiety; patient is not in distress; dressed in casual attire with kempt hair and adequate hygiene; mood is described as anxious and affect and mood are congruent; eye contact appropriate; Speech is normal rate, volume and prosody and not pressured; no psychomotor agitation/retardation present; thought process is goal directed; Thought content is on treatment, pertinent to relevant topics and without any delusional content, paranoid ideation or grandiosity; no SI/HI/AVH expressed. Patient's insight and judgment fair/good Diagnostics Vital Signs (24Hr): Vital Signs - 24 hr 01/03/25 07:26 01/03/25 20:00 Temperature 98.2 F 97.4 F Pulse Rate 101 H 83 Respiratory Rate 16 14 Blood Pressure 120/66 132/70 Pulse Oximetry 98 98 Oxygen Delivery Method Room Air Room Air BMI result Body Mass Index 24.4 Labs 12/29/24 07:57 Medications Medications Current Medications Acetaminophen (Acetaminophen 325 Mg Tablet) 650 mg PO Q6H PRN PRN Reason: Headache/Pain, Scale 1-10 Last Admin: 01/03/25 14:37 Dose: 650 mg Al Hydroxide/Mg Hydroxide (Magnesium Hydrox/Alum Hydrox 30 Ml Oral.Susp) 30 ml PO Q6H PRN PRN Reason: Heartburn/Nausea Cariprazine (Cariprazine Hcl 3 Mg Capsule) 3 mg PO BEDTIME [facility] Last Admin: 01/03/25 20:54 Dose: 3 mg Clonazepam (Clonazepam 0.5 Mg Tablet) 0.5 mg PO DAILY PRN PRN Reason: severe anxiety Last Admin: 01/03/25 01:51 Dose: 0.5 mg Lidocaine (Lidocaine 4 % Patch Adh..Patch) 1 patch TRANSDERMA DAILY [facility]; Protocol Last Admin: 01/03/25 14:39 Dose: 1 patch [place] Carbonate ([place] Carbonate Er 450 Mg Tablet.Er) 450 mg PO BID [facility] Last Admin: 01/03/25 20:54 Dose: 450 mg Magnesium Hydroxide (Milk Of Magnesia 30 Ml Oral.Susp) 30 ml PO DAILY PRN PRN Reason: Constipation Last Admin: 01/01/25 08:42 Dose: 30 ml Melatonin (Melatonin 3 Mg Tablet) 9 mg PO BEDTIME [facility] Last Admin: 01/03/25 20:55 Dose: 9 mg Metronidazole (Metronidazole 500 Mg Tablet) 500 mg PO Q12H [facility] Stop: 01/06/25 19:59 Last Admin: 01/03/25 20:54 Dose: 500 mg Multivitamins/Vitamin C (Multivitamin Tablet) 1 tab PO DAILY [facility] Last Admin: 01/03/25 08:26 Dose: 1 tab Nicotine (Nicotine 21 Mg Patch.Td24) 21 mg TRANSDERMA DAILY PRN PRN Reason: nicotine craving Nicotine Polacrilex (Nicotine Polacrilex 2 Mg Gum) 2 mg BUCCAL Q2H PRN PRN Reason: Nicotine Cravings Polyethylene Glycol (Polyethylene Glycol 3350 17 Gm Powd.Pack) 17 gm PO DAILY [facility] Last Admin: 01/03/25 18:42 Dose: 17 gm Pregabalin (Pregabalin 50 Mg Capsule) 50 mg PO BID AGUS Last Admin: 01/03/25 20:54 Dose: 50 mg Quetiapine Fumarate (Quetiapine Fumarate 100 Mg Tablet) 100 mg PO BEDTIME AGUS Last Admin: 01/03/25 20:55 Dose: 100 mg Tizanidine HCl (Tizanidine Hcl 4 Mg Tablet) 4 mg PO TID PRN PRN Reason: lower back pain/muscle spasm Last Admin: 01/03/25 20:54 Dose: 4 mg Trazodone HCl (Trazodone Hcl 50 Mg Tablet) 50 mg PO BEDTIME PRN PRN Reason: insomnia Last Admin: 01/03/25 01:51 Dose: 50 mg Trazodone HCl (Trazodone Hcl 25 Mg Halftab) 75 mg PO BEDTIME AGUS Last Admin: 01/03/25 20:54 Dose: 75 mg Allergies Allergies Allergy/AdvReac Type Severity Reaction Status Date / Time No Known Allergies Allergy Unknown UNKNOWN Unverified 02/02/20 17:33 Assessment & Plan Assessment & Plan (1) Bipolar 1 disorder, depressed, moderate: Status: Acute Code(s): F31.32 - Bipolar disorder, current episode depressed, moderate (2) Alcohol use disorder: Status: Acute Code(s): F10.90 - Alcohol use, unspecified, uncomplicated (3) Overdose: Status: Acute Code(s): T50.901A - Poisoning by unspecified drugs, medicaments and biological substances, accidental (unintentional), initial encounter Plan HPI: Patient is a 49 years old cisgender female referred to us from [facility] with history of ADHD and bipolar I he was admitted CCU following a serious intentional overdose on prescribed medications, included Xanax Seroque, risperidone, tizanidine, and lithium (some of them are from old bottle). Patient reported that that the overdose was impulsive and that she did not mean it . She is facing multiple ongoing life stressors: Lost of her [place] license and vehicle d/t DUI arrest earlier after she and the incarceration of her adult son. These stressors have contributed to a sustained a period of depressive symptoms and suicidal ideation. Formulation/clinical reasoning: Lots of stressors, loss of license and car last year due to alcohol use, loss of her job last year, son is incarcerated, little support from family. Recently restart on medication after couple of months not seen the outpatient psychiatrist, inconsistent taking medication. History of bipolar 1, history of ADHD and alcohol use. She overdose on prescriptions, with lithium was 1.28 and 1.4 at some point when was just admitted due to overdose. Given the above information, patient would not be safe in less restrictive environment. She will be admitted for her own safety, monitor for mental status change, medication management, provide therapeutic environment for coping skills, provide patient with resources and back to psychiatry services as aftercare upon discharge. Hospital course: 12/28/24: Lamictal 25 mg x2 days, we will titrate up to therapeutic dose. Slow and low. Seroquel 50 mg at bedtime for insomnia/severe anxiety. Klonopin 0.5 twice a day b.i.d. p.r.n. for severe anxiety. Melatonin 9 mg daily at bedtime for insomnia. Reported that she takes 20 mg total a day from outside [id number]. Vraylar 3mg daily for mood. 12/29/24: Lidocaine patch once daily for lower back pain. Tizanidine 4 mg 3 times a day as needed for muscle spasm/pain Lyrika 50mg BID for severe back pain 12/30/24: Patient slept for 6 hours, compliant with medications, observed visible and social with peers and staff. Anxious, depressed, less ambivalence. She has questioned related to legal. Explained to patient a couple of times, she finally make her decision to sign herself in voluntarily with plan to be discharged next Thursday. She gave an example of someone also overdose and was let go home. Explained to patient that care is individualized. Reports anxiety is better today 5/10. Depression is 4/10. Self reports slept better last night. Discussed with her regarding medication change, she is receptive to the plan. Denies other safety concerns, no suicidal thoughts, no hallucinations. No ADLs issues. Increased Lamictal 25 daily to BID. Increase Seroquel 100mg at HS for severe insomnia. Remind patient she has lidocaine patch daily for her back pain in addition to Lyrica. 12/31: slept 7 hours. pleasant, cooperative. c/o insomnia nevertheless, trazodone changed to 75 mg scheduled and 75 mg PRN. continue current mgmt otherwise. 01/01: slept 7 hours. increase scheduled trazodone to 100 mg, decrease PRN trazodone to 50 mg. DC lamictal. start lithium 450 BID. otherwise continue current mgmt. wellbutrin also discussed as antidepressant for use in bipolar disorder. 01/02/25: Patient slept for 6 hours compliant with medication. Denies side effects. Reported that she different scheduled sleeping compared to the roommate which is hard for to stay asleep as roommate was up a couple of times for snack. Reported that she feels happy with started lithium her bipolar. Requests to reduce trazodone down to 75 mg at bedtime as she felt 100 mg is too much. She also happy to to start PHP after discharge. Reported the appointment with her outpatient psychiatrist is on January 16. Denies other safety concerns. Continued to improve in mood, feeling anxious but denies depression. Reported that baseline she has a lot of anxiety. Pain is under control. With plans to [facility] outpatient psychiatrist in place, patient will be safe to discharge this Thursday as plan from last week. We will have the outpatient provider/PHP provider to continue monitor for lithium level and titrate medication. Do need to sign the house le out to ex- as she is living on Thursday. 01/03/25: Sleep is not bad, interrupted by roommate, compliant with medications. Denies side effects. Have bowel movement today. Denies safety concerns. Reports baseline anxiety, but denies depression. Patient [place] [facility] [place] She is aware that lithium level need to be drawn by the end of this week which she can ask outpatient psychiatrist to order the labs work for her. She requests Seroquel changed to extended release which was not carrying over here. She needs to go with outpatient provider to habit change after discharge. Refused the MiraLax this morning, but she as to take it in the evening. Provider reviewed medication list with patient. We will send medication to preferred pharmacy for 30 day supply upon discharge . She is happy that the pain is under control Plan Patient on 15 minute checks for safety. Admitted to - signed on 12/30/24 with tentative plan to be discharged on Thursday on 01/04/25. Work with treatment team to do collateral and FLU appointment for aftercare. [place] level on 12/28 prior to transferred from [facility] 0.66. on 12/29/24: 0.[address]. [address] for hospitalist for possible bacterial vagionosis: Test +. Hospitalist notified: started on Antibiotic BID. Patient educated on: diagnosis, medication risk/benefits and therapeutic strategies Reason for continued inpatient stay Substantial Risk for: med/psych decompensation Time Spent With Patient Time: Total time managing care of this patient today ____ minutes.
[2025-01-04 04:36] VITALS: BP 131/80; PULSE 74; RESP 14; O2SAT 99
[2025-01-04 08:00] VITALS: BP 128/59; PULSE 98; RESP 16; TEMP 36.6; O2SAT 98
[2025-01-04] MEDS: Lidocaine 4 % Patch ADH..PATCH 1 PATCH TRANSDERMA (08:39)
--- NOTE | 2025-01-04 09:16 | P.DS_ITS ---
DS: Providers Provider Date of Service: 01/04/25 Date of admission: 12/28/24 16:59 Date of discharge: 01/04/25 Primary care physician: Unknown Physician Attending physician on admission: Janey Khan Consults: 12/28/24 18:34 Consult to Hospitalist Routine Comment: Consulting Provider: [facility] Hospitalists Reason For Exam: New external admit- H&P 12/30/24 10:11 Consult to Hospitalist Routine Comment: Strong odor Consulting Provider: [facility] Hospitalists Reason For Exam: Bacterial vagionosis? Discharging clinician: Janey Khan DS: Diagnosis Discharge Diagnosis (1) Bipolar 1 disorder, depressed, moderate: Status: Acute (2) Alcohol use disorder: Status: Acute (3) Overdose: Status: Acute DS: Medications Discharge Medications Home Medications: Home Medications ?Medication ?Instructions ?Recorded ?Confirmed ibuprofen 600 mg tablet 600 mg PO TID PRN Pain 12/2812/28/24 Previous Rx's ?Medication ?Instructions ?Recorded cariprazine 3 mg capsule (Vraylar) 3 mg PO BEDTIME Moo d #14 caps 01/03/25 clonazepam 0.5 mg tablet 0.5 mg PO DAILY PRN severe a nxiety 01/03/25 #14 tabs lidocaine 4 % topical patch 1 patch transdermal DAILY back 01/03/25 (Lidocaine Pain Relief) pain #15 ea lithium carbonate 450 mg 450 mg PO BID Mood #30 tabs 01/03/25 tablet,extended release melatonin 3 mg tablet 9 mg (3 x 3 mg) PO BEDTIME 0 01/03/25 insomnia #60 tabs metronidazole 500 mg tablet 500 mg PO Q12H Bacterial v aginosis 01/03/25 /Infection #6 tabs multivitamin with folic acid 400 1 tab PO DAILY supple ment #30 tabs 01/03/25 mcg tablet (Daily-Bryant (with folic acid)) polyethylene glycol 3350 17 gram 17 g PO DAILY constip ation #14 ea 01/03/25 oral powder packet pregabalin 50 mg capsule 50 mg PO BID pain #30 caps 01/03/25 quetiapine 100 mg tablet 100 mg PO BEDTIME Mood/sever e 01/03/25 anxiety #14 tabs tizanidine 4 mg tablet 4 mg PO TID PRN muscle spasm #21 01/03/25 tabs trazodone 50 mg tablet 75 mg (1.5 x 50 mg) PO BEDTI ME PRN 01/03/25 insomnia #30 tabs Mental Status Exam Mental Status Exam Narrative: Patient presents well-groomed, casually dressed. Affect is euthymic with full range. Speech is clear and coherent. Thought process is linear and logical. Thought content is appropriate and relevant. Patient denies suicidal or homicidal ideation intent or plan. No overt psychotic symptoms elicited. Insight is good. Judgment is good. Data Data Completed and Pending Completed studies during hospitalization [Text1]: 12/29/24 12/29/24 12/30/24 07:57 11:45 13:26 Sodium 143 Potassium 4.0 Chloride 107 Carbon Dioxide 27 Anion Gap 13 BUN 6 L Creatinine 0.77 Estim Creat Clear Calc 87.8 Estimated GFR > 60 Random Glucose 101 Estimat Average Glucose 105 Hemoglobin A1c % 5.3 Calcium 9.8 Total Bilirubin 1.1 H AST 21 ALT 20 Alkaline Phosphatase 49 Total Protein 7.5 Albumin 4.8 Triglycerides 74 Cholesterol 171 LDL Cholesterol, Calc 93 HDL Cholesterol 64 TSH 2.57 Free T4 1.04 [place] 0.21 L T. vaginalis (PCR) NOT DETECTED Bact vaginosis (PCR) POSITIVE A C. krusei/glabrata (PCR) NOT DETECTED Jennifer group (PCR) NOT DETECTED DS: Summary Hospital Course Hospital Course: HPI: Patient is a 49 years old cisgender female referred to us from [facility] with history of ADHD and bipolar I he was admitted CCU following a serious intentional overdose on prescribed medications, included Xanax Seroque, risperidone, tizanidine, and lithium (some of them are from old bottle). Patient reported that that the overdose was impulsive and that she did not mean it . 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 These stressors have contributed to a sustained a period of depressive symptoms and suicidal ideation. Formulation/clinical reasoning: Lots of stressors, loss of license and car last year due to alcohol use, loss of her job last year, son is incarcerated, little support from family. Recently restart on medication after couple of months not seen the outpatient psychiatrist, inconsistent taking medication. History of bipolar 1, history of ADHD and alcohol use. She overdose on prescriptions, with lithium was 1.28 and 1.4 at some point when was just admitted due to overdose. Given the above information, patient would not be safe in less restrictive environment. She will be admitted for her own safety, monitor for mental status change, medication management, provide therapeutic environment for coping skills, provide patient with resources and back to psychiatry services as aftercare upon discharge. Hospital course: 12/28/24: Lamictal 25 mg x2 days, we will titrate up to therapeutic dose. Slow and low. Seroquel 50 mg at bedtime for insomnia/severe anxiety. Klonopin 0.5 twice a day b.i.d. p.r.n. for severe anxiety. Melatonin 9 mg daily at bedtime for insomnia. Reported that she takes 20 mg total a day from outside [id number]-[id number]. Vraylar 3mg daily for mood. 12/29/24: Lidocaine patch once daily for lower back pain. Tizanidine 4 mg 3 times a day as needed for muscle spasm/pain Lyrika 50mg BID for severe back pain 12/30/24: Patient slept for 6 hours, compliant with medications, observed visible and social with peers and staff. Anxious, depressed, less ambivalence. She has questioned related to legal. Explained to patient a couple of times, she finally make her decision to sign herself in voluntarily with plan to be discharged next Thursday. She gave an example of someone also overdose and was let go home. Explained to patient that care is individualized. Reports anxiety is better today 5/10. Depression is 4/10. Self reports slept better last night. Discussed with her regarding medication change, she is receptive to the plan. Denies other safety concerns, no suicidal thoughts, no hallucinations. No ADLs issues. Increased Lamictal 25 daily to BID. Increase Seroquel 100mg at HS for severe insomnia. Remind patient she has lidocaine patch daily for her back pain in addition to Lyrica. 12/31: slept 7 hours. pleasant, cooperative. c/o insomnia nevertheless, trazodone changed to 75 mg scheduled and 75 mg PRN. continue current mgmt otherwise. 01/01: slept 7 hours. increase scheduled trazodone to 100 mg, decrease PRN trazodone to 50 mg. DC lamictal. start lithium 450 BID. otherwise continue current mgmt. wellbutrin also discussed as antidepressant for use in bipolar disorder. 01/02/25: Patient slept for 6 hours compliant with medication. Denies side effects. Reported that she different scheduled sleeping compared to the roommate which is hard for to stay asleep as roommate was up a couple of times for snack. Reported that she feels happy with started lithium her bipolar. Requests to reduce trazodone down to 75 mg at bedtime as she felt 100 mg is too much. She also happy to to start PHP after discharge. Reported the appointment with her outpatient psychiatrist is on January 16. Denies other safety concerns. Continued to improve in mood, feeling anxious but denies depression. Reported that baseline she has a lot of anxiety. Pain is under control. With plans to PHP outpatient psychiatrist in place, patient will be safe to discharge this Thursday as plan from last week. We will have the outpatient provider/PHP provider to continue monitor for lithium level and titrate medication. Do need to sign the house le out to ex- as she is living on Thursday. 01/03/25: Sleep is not bad, interrupted by roommate, compliant with medications. Denies side effects. Have bowel movement today. Denies safety concerns. Reports baseline anxiety, but denies depression. Patient to start PHP on January 12 at [facility]. She is aware that lithium level need to be drawn by the end of this week which she can ask outpatient psychiatrist to order the labs work for her. She requests Seroquel changed to extended release which was not carrying over here. She needs to go with outpatient provider to habit change after discharge. Refused the MiraLax this morning, but she as to take it in the evening. Provider reviewed medication list with patient. We will send medication to [facility] pharmacy for 30 day supply upon discharge . She is happy that the pain is under control 01/04/25: Patient is ready to discharge, no safety concern. Ex- will pick her up. She is aware of getting lithium level done by the end of this week-contact her outpatient psychiatrist. She is aware that not able to take NSAIDs with lithium. Aware of lithium level done here on the 1st day she came reflects lithium level that she was overdose on-not level of current dose. Patient is to start PHP on 01/12. [place] level on 12/28 prior to transferred from [facility] 0.66. on 12/29/24: 0.21. bacterial vagionosis: Complete antibiotic treatment for not a 3 days. Time spent discussing smoking cessation with patient: 3 to 10 minutes Status at Discharge Cognitive/behavioral status at discharge: CONDITION ON DISCHARGE: CURRENT STATUS IT RELATES TO ADMISSION CRITERIA: Stable, improved. Improvements in depression, anxiety, and suicidal ideation. Improvements in sleep, energy, and appetite. and no hallucination or paranoia/delusional thought. Functional status at discharge: independent ambulation Overall status at discharge: patient is back to baseline Time Spent with Patient Time attestation: Total time managing care of this patient today ____ minutes. Time spent: Greater than 30 minutes Discharge Plan Discharge Anticipated Discharge Date/Time: 01/04/25 10:30 Patient Disposition: Home, Self-Care Discharge Diagnosis: Bipolar I, current depressive. Bacterial Vaginosis, and Alcohol use disorder. Referrals: [facility] PHP [Other] - 1 Week Referral Note: intake appointment at [facility] PHP is scheduled for 01/12/25 at 11am. [facility] [Provider Group] - 1 Week Referral Note: 01-02-25 [facility] was added to patients chart. Please call [phone] to schedule your follow up appt within 7-10 days of discharge. No release or PCP on file. Discharge Medications: New metronidazole 500 mg Tablet 500 mg PO Q12H Qty: 6 0RF lithium carbonate 450 mg Tablet Extended Release 450 mg PO BID Qty: 30 0RF pregabalin 50 mg Capsule 50 mg PO BID Qty: 30 0RF quetiapine 100 mg Tablet 100 mg PO BEDTIME Qty: 14 0RF trazodone 50 mg Tablet 75 mg PO BEDTIME PRN (Reason: insomnia) Qty: 30 0RF polyethylene glycol 3350 17 gram Powder In Packet 17 g PO DAILY Qty: 14 0RF melatonin 3 mg Tablet 9 mg PO BEDTIME Qty: 60 0RF lidocaine [Lidocaine Pain Relief] 4 % Adhesive Patch,Medicated 1 patch transdermal DAILY Qty: 15 0RF Protocol: Apply to: Apply to: lower back for pain Continued ibuprofen 600 mg tablet 600 mg PO TID PRN (Reason: Pain) multivitamin with folic acid [Daily-Bryant (with folic acid)] 400 mcg tablet 1 tab PO DAILY Qty: 30 0RF Changed tizanidine 4 mg tablet 4 mg PO TID PRN (Reason: muscle spasm) Qty: 21 0RF clonazepam 0.5 mg tablet 0.5 mg PO DAILY PRN (Reason: severe anxiety) Qty: 14 0RF Patient Comments: I never picked up the clonazepam Vraylar 3 mg capsule 3 mg PO BEDTIME Qty: 14 0RF Discontinued lamotrigine 25 mg tablet 50 mg PO DAILY Patient Comments: I only take one tablet not 2 zolpidem 5 mg tablet 5 mg PO BEDTIME PRN (Reason: Insomnia) Patient Comments: I never picked up the ambien pregabalin 75 mg capsule 75 mg PO BEDTIME Patient Comments: I only use it for pain as needed pregabalin 150 mg capsule 150 mg PO DAILY Patient Comments: I only use it for pain as needed melatonin 5 mg tablet 5 mg PO DAILY Rx Instructions: I take 4 tabs - 20mg quetiapine 50 mg tablet extended release 24 hr 50 mg PO BEDTIME Patient Comments: I use it to sleep Ubrelvy 50 mg tablet 50 mg PO DAILY Discharge Orders: Discharge Order (Routine); Ordered 01/04/25 Ordered By: Janey Khan Diet: Regular diet Activity on Discharge: As tolerated Stand Alone Forms: Patient Portal Discharge page, Community Support Print Language: Luxembourgish Care Plan Goals: Maintain mood and safe behaviors Take medications as prescribed Continue to pursue sobriety Practice coping skills Continue with outpatient providers and reach out to them as needed Health Concerns: Mood stability and behaviors Sobriety Plan of Treatment: Follow up with your PCP, psychiatric provider and other outpatient providers regarding above concerns Take medications as prescribed Assessment: Assessment: Risk assessment at time of discharge: Patient was interviewed prior to discharge and found to be fully oriented and without any SI or HI. Patient has improved insight and judgment and wants to continue treatment. Patient is not in imminent risk of harm to self or others and has a safety plan that includes presenting to the closest ER or calling 911 if feeling unsafe. Patient has been observed closely by nursing and unit staff throughout admission; patient has not engaged in any behaviors that suggest dangerousness to self or others and has demonstrated appropriate behaviors and impulse control Discharge Date/Time: 01/04/25 10:11
== END 2025-01-04 10:11 | disposition home or self-care (01) | DRG 885 ==
PROVIDERS: Nurse Practitioner Family; Admitting Provider Psychiatry & Neurology Psychiatry; Visit Provider Nurse Practitioner Psychiatric/Mental Health
DX: F31.32 Bipolar disorder, current episode depressed, moderate (principal); F17.210 Nicotine dependence, cigarettes, uncomplicated; F10.90 Alcohol use, unspecified, uncomplicated; Z71.6 Tobacco abuse counseling; Z79.899 Other long term (current) drug therapy
CPT/HCPCS: 36415; 80053; 80061; 80178; 81515; 83036; 84439; 84443

== ENCOUNTER → 2024-12-28 16:59 | Outpatient (BNV) | payer MEDICAID, SELFPAY | PROVIDERS: Admitting Provider Psychiatry & Neurology Psychiatry; Visit Provider Nurse Practitioner Family | DX: F31.32 Bipolar disorder, current episode depressed, moderate (principal) | CPT/HCPCS: 99221; 99231 ==

== ENCOUNTER → 2024-12-28 16:59 | Outpatient (BNV) | payer OTHER, SELFPAY | PROVIDERS: Admitting Provider Psychiatry & Neurology Psychiatry; Visit Provider Nurse Practitioner Psychiatric/Mental Health | DX: F31.32 Bipolar disorder, current episode depressed, moderate (principal); F10.90 Alcohol use, unspecified, uncomplicated; T50.901A Poisoning by unspecified drugs, medicaments and biological substances, accidental (unintentional), initial encounter | CPT/HCPCS: 90792; 99231; 99232; 99238 ==

== ENCOUNTER 2025-01-24 08:52 | Outpatient (REF) | payer MEDICAID, SELFPAY ==
--- NOTE | 2025-01-24 09:02 | ECG_ITS ---
Test Reason : qtc check Blood Pressure : */* mmHG Vent. Rate : 74 BPM Atrial Rate : 74 BPM P-R Int : 124 ms QRS Dur : 98 ms QT Int : 382 ms P-R-T Axes : 76 77 66 degrees QTcB Int : 424 ms Normal sinus rhythm Normal ECG No previous ECGs available Referred By: Zahra Hernandez Electronically Signed By: KYLAH TAYLOR MD
[2025-01-24 09:16] LABS: MANUAL DIFF FLAG NO
[2025-01-24 09:52] LABS: Hematocrit 39.0 % (37.0-47.0); Hemoglobin 12.7 g/dl (12.0-16.0); Imm Gran Abs Auto 0.03 X10*3/uL (0.00-0.03); Imm Gran Pct Auto 0.4 % (0.0-0.4); Lymphocytes Absolute Auto 1.3 X10*3/uL (1.2-4.9); Mean Corpuscular HGB Conc 32.6 g/dl (31.0-35.0); Mean Corpuscular Hemoglobin 30.3 pg (27.0-33.0); Mean Corpuscular Volume 93.1 fL (80.0-98.0); NRBC Abs Auto 0.000 X10*3/uL (0.0-0.012); NRBC Pct Auto 0.0 /100WBC (0.0-0.2); Platelet Count 230 X10*3/uL (160-400); Red Blood Count 4.19 X10*6/uL (4.20-5.50); White Blood Count 7.8 X10*3/uL (4.8-10.8)
--- OUTSIDE RECORDS SUMMARY | 2025-01-24 10:05 | XMS_ITS | Encounter Summary ---
Author Organization [facility] Address [address] [place] [address] Phone Care Team Providers Care Lead Javascript Developer Name Role Phone Kay Overton MD Unavailable Marito Vizcarra MD Unavailable Bibi Sierra MD Unavailable [phone] Lashawn Butterfield ELEMENTARY SPECIAL EDUCATION TEACHER Unavailable [phone] Justin Leblanc MD Unavailable Maxine Davis MD Unavailable Panfilo Gates MD Unavailable [phone] Mojgan Wang MD Unavailable Kay Overton MD Unavailable [phone] Shantel Sands Primary Care Provider [phone] Cornelia Hoang DO Unavailable [phone] Cassidy Gibson MD Unavailable Rachele Marti RN Unavailable Kay Overton MD Primary Care Provider Encounter Details Date Type Department Care Team (Late st Contact Info) Description 11/12/2020 Ancillary Orders Virtual Department [address] [place] [address] Shantel Sands PA [address] [place] [phone] Breast screening Social History Tobacco Use Types Packs/Day Years Used Date Smoking Tobacco: Former Cigarettes 0.3 4 1 07/12/2012 - 05/11/2017 Smokeless Tobacco: Never Alcohol Use Standard Drinks/Week Comments No 0 (1 standard drink = 0.6 oz pur e alcohol) Comments No Sex and Gender Information Value Date Recorded Sex Assigned at Female 05/25/2017 9:38 AM EST Legal Sex Female 9:26 PM EDT Gender Identity Female 05/25/2017 9:38 AM EST Sexual Orientation Straight 05/25/2017 9: 38 AM EST documented as of this encounter Plan of Treatment Not on file documented as of this encounter Results * BI MAMMOGRAM SCREENING WITH TOMOSYNTHESIS WITH CAD (BILATERAL) (11/26/2020 3:29 PM EDT) Anatomical Region Laterality Modality Breast Left, Breast Right, Breast Bilateral Bila teral Mammography 11/26/2020 3:58 PM EDT Impressions 11/26/2020 4:01 PM EDT No findings suspicious for malignancy are identified. In the absence of a worrisome palpable abnormality, annual screening mammography is recommended. BI-RADS CATEGORY: 1 - Negative. DENSITY: There are scattered fibroglandular densities. Narrative 11/26/2020 4:01 PM EDT COMPARISON: 05/06/2012 through 09/23/2017 Bilateral 3-D tomosynthesis with 2-D reconstructions in the CC and MLO projection. Computer-aided detection system was utilized. No new mass, asymmetry, architectural distortion or suspicious calcifications have become apparent on either side. Procedure Note Aj Dewey MD - 11/26/2020 COMPARISON: 05/06/2012 through 09/23/2017 Bilateral 3-D tomosynthesis with 2-D reconstructions in the CC and MLOprojection. Computer-aided detection system was utilized. No new mass, asymmetry, architectural distortion or suspiciouscalcifications have become apparent on either side. IMPRESSION: No findings suspicious for malignancy are identified. In the absence of aworrisome palpable abnormality, annual screening mammography isrecommended. BI-RADS CATEGORY: 1 - Negative. DENSITY: There are scattered fibroglandular densities. Shantel STROUD IMG MG EXAMS Final Resu lt documented in this encounter Visit Diagnoses Diagnosis Breast screening Breast screening, unspecified Breast screening Breast screening, unspecified documented in this encounter Additional Health Concerns Infection Onset Date Last Indicated Resolved Time CoV-Risk 05/13/2024 05/13/2024 05/24/2024 1:24 AM EST CoV-Risk 08/19/2024 08/19/2024 08/30/2024 1:23 AM EDT documented as of this encounter Care Teams Lead Javascript Developer Relationship Specialty Start Date End Date Shantel Sands PA [address] [place] [address] PCP - General Multiple Resaw Operator 03/29/20 10/29/23 Kay Overton MD [address] [place] [phone] [email or web address] PCP - General Family Medicine 10/30/23 Kay Overton MD [address] [place] [address] [email or web address] Historical LMR Provider 03/04/17 2 Marito Vizcarra MD [address] [place] [address], [facility] [address] [place] [address] Historical LMR Provider 03/04/17 Bibi Sierra MD [address] [place] [address] Historical LMR Provider 03/04/17 Lashawn Butterfield, ELEMENTARY SPECIAL EDUCATION TEACHER [address] [place] [address] Historical LMR Provider 03/04/17 2 Justin Leblanc MD [address] [place] [address], [address] [place] [address] Historical LMR Provider 03/04/17 05/25/21 Maxine Davis MD [address] [place] [address] Historical LMR Provider 03/04/17 Panfilo Gates MD [address] [place] [address] Historical LMR Provider 03/04/17 05/25/21 Mojgan Wang MD [address] [place] [address] Historical LMR Provider 03/04/17 05/25/21 Kay Overton MD [address] [place] [address] Insurance Assigned Provider 04/23/19 10/26/21 Cornelia Hoang DO [address] [place] [address] Referring Physician Anesthesiology 09/18/20 Cassidy Gibson MD [address] [place] [address] [email or web address] Insurance Assigned Provider 10/26/21 01/24/23 Rachele Marti RN [address] [place] [address] [email or web address] iCMP Shop Fitter 10/13/23 11/10/23 documented as of this encounter Additional Source Comments The information contained in this document represents components of the legal health record. It is not the complete legal health record.[facility]
--- OUTSIDE RECORDS SUMMARY | 2025-01-24 10:06 | XMS_ITS | Encounter Summary ---
Author Organization [facility] Address [address] [place] [address] Phone Care Team Providers Care Postpartum Nurse Name Role Phone Kay Overton MD Primary Care Provider [phone] Kay Overton MD Unavailable [phone] Marito Vizcarra MD Unavailable Bibi Sierra MD Unavailable [phone] Lashawn Butterfield NP Unavailable [phone] Justin Leblanc MD Unavailable [phone] Maxine Davis MD Unavailable Panfilo Gates MD Unavailable [phone] Mojgan Wang MD Unavailable [phone] Jennifer Perry MD Unavailable + Kay Overton MD Unavailable [phone] Kay Overton MD Unavailable [phone] Shantel Sands Primary Care Provider [phone] Cornelia Hoang DO Unavailable [phone] Cassidy Gibson MD Unavailable [phone] Rachele Marti RN Unavailable Kay Overton MD Primary Care Provider [phone] Encounter Details Date Type Department Care Team (Late st Contact Info) Description 08/25/2017 Ancillary Orders Virtual Department [address] [place] [address] Kay Overton MD [address] [place] [address] [email or web address] Breast screening Social History Tobacco Use Types [...] MAMMOGRAM SCREENING WITH TOMOSYNTHESIS WITH CAD (BILATERAL) (09/23/2017 11:21 AM EDT) Anatomical Region Laterality Modality Breast Left, Breast Right, Breast Bilateral Bila teral Mammography 09/23/2017 12:4 8 PM EDT Impressions 09/23/2017 12:50 PM EDT No findings suspicious for malignancy are identified. In the absence of a worrisome palpable abnormality, annual screening mammography is recommended. BI-RADS CATEGORY: 1 - Negative. DENSITY: There are scattered fibroglandular densities. POS CDHMAMA Narrative 09/23/2017 12:50 PM EDT COMPARISON: 05/06/2012 through 09/02/2016 Bilateral 3-D tomosynthesis with 2-D reconstructions in the CC and MLO projection. Computer-aided detection system also utilized. No new mass, asymmetry, architectural distortion or suspicious calcifications have become apparent on either side. Procedure Note jA Dewey MD - 09/23/2017 COMPARISON: 05/06/2012 through 09/02/2016 Bilateral 3-D tomosynthesis with 2-D reconstructions in the CC and MLOprojection. Computer-aided detection system also utilized. No new mass, asymmetry, architectural distortion or suspiciouscalcifications have become apparent on either side. IMPRESSION: No findings suspicious for malignancy are identified. In the absence of aworrisome palpable abnormality, annual screening mammography isrecommended. BI-RADS CATEGORY: 1 - Negative. DENSITY: There are scattered fibroglandular densities. POS CDHMAMA us Kay Overton MD IMG MG EXAMS Final Resul t documented in this encounter Visit Diagnoses Diagnosis Breast screening Breast screening, unspecified Breast screening Breast screening, unspecified documented in this encounter Additional Health Concerns Infection Onset Date Last Indicated Resolved Time CoV-Risk 05/13/2024 05/13/2024 05/24/2024 1:24 AM EST CoV-Risk 08/19/2024 08/19/2024 08/30/2024 1:23 AM EDT documented as of this encounter Care Teams Postpartum Nurse Relationship Specialty Start Date End Date Kay Overton MD [email or web address] PCP - General 03/03/17 03/28/20 Shantel Sands PA [address] [place] [address] PCP - General Regional Merchandising Manager 03/29/20 10/29/23 Kay Overton MD [address] [place] [phone] [email or web address] PCP - General Family Medicine 10/30/23 Kay Overton MD [address] [place] [address] Historical LMR Provider 03/04/17 2 Marito Vizcarra MD 22 [facility], [address] [address] Historical LMR Provider 03/04/17 Bibi Sierra MD [address] [place] [address] Historical LMR Provider 03/04/17 Lashawn Butterfield NP [address] [place] [address] Historical LMR Provider 03/04/17 2 Justin Leblanc MD [address] [place] [address], [address] [place] [address] Historical LMR Provider 03/04/17 05/25/21 Maxine Davis MD [address] [place] [address] Historical LMR Provider 03/04/17 Panfilo Gates MD [address] [place] [address] Historical LMR Provider 03/04/17 05/25/21 Mojgan Wang MD [address] [place] [address] Historical LMR Provider 03/04/17 05/25/21 Jennifer Perry MD [address] [place] [address] [email or web address] Insurance Assigned Provider 08/15/17 09/19/17 Kay Overton MD [address] [place] [address] [email or web address] Insurance Assigned Provider 09/19/17 06/19/18 Kay Overton MD [address] [place] [address] Insurance Assigned Provider 04/23/19 10/26/21 Cornelia Hoang DO [address] [address] Referring Physician Anesthesiology 09/18/20 Cassidy Gibson MD [address] [place] [address] [place] [address] [email or web address] Insurance Assigned Provider 10/26/21 01/24/23 Rachele Marti, RN [address] [place] [address] [email or web address] [employer] Associate Loan Officer 10/13/23 11/10/23 documented as of this encounter Additional Source Comments The information contained in this document represents components of the legal health record. It is not the complete legal health record.[facility]
--- OUTSIDE RECORDS SUMMARY | 2025-01-24 10:06 | XMS_ITS | Encounter Summary ---
Author Organization [facility] Address [address] [facility] [address] [place] [address] Phone Care Team Providers Care Adjunct Physical Education Instructor Name Role Phone Marito Vizcarra MD Unavailable Maxine Davis MD Unavailable Shantel Sands Primary Care Provider [phone] Cornelia Hoang DO Unavailable [phone] Rachele Marti RN Unavailable Kay Overton MD Primary Care Provider Encounter Details Date Type Department Care Team (Late st Contact Info) Description 02/12/2023 Ancillary Orders [facility] [address] [place], [place] [phone] Shantel Sands PA [address] [place] [phone] Abnormal finding on mammography Social History Tobacco Use Types Packs/Day Years Used Date Smoking Tobacco: Former Cigarettes 0.3 4 1 07/12/2012 - 05/11/2017 Smokeless Tobacco: Never Alcohol Use Standard Drinks/Week Comments No 0 (1 standard drink = 0.6 oz pur e alcohol) Education Answer Date Recorded Are you interested in more education? Not on christiano e 09/12/2022 Are you concerned about learning? Not on file 09/12/2022 No 09/12/2022 No 09/12/2022 Digital Access Answer Date Recorded No 10/10/2022 No 10/10/2022 Reliable internet access at home? Not on file 10/10/2022 Device with a working camera? Not on file Comments No Sex and Gender Information Value Date Recorded Sex Assigned at Female 05/25/2017 9:38 AM EST Legal Sex Female 9:26 PM EDT Gender Identity Female 05/25/2017 9:38 AM EST Sexual Orientation Straight 05/25/2017 9: 38 AM EST documented as of this encounter Plan of Treatment Not on file documented as of this encounter Results * BI MAMMOGRAM DIAGNOSTIC WITH TOMOSYNTHESIS WITH CAD (RIGHT) (04/24/2023 1:43 PM EST) Anatomical Region Laterality Modality Breast Right, Breast Bilateral Right M ammography 04/24/2023 1:51 PM EST Impressions 04/24/2023 2:00 PM EST No findings suspicious for malignancy. Bilateral screening mammography recommended in 01/2024. Results and recommendation conveyed to the patient before leaving the breast center. BI-RADS CATEGORY: 2 - Benign finding. DENSITY: There are scattered fibroglandular densities. Narrative 04/24/2023 2:00 PM EST HISTORY: Callback for small asymmetry in the posterior outer right breast. EXAM: Right diagnostic mammogram. COMPARISON: Compared with previous mammograms, most recent 01/29/2023. FINDINGS: No evidence of a persisting mass or suspicious asymmetry in the posterior outer right breast. The finding is consistent with benign superimposed fibroglandular tissue. Shantel STROUD IMG MG EXAMS Final Resu lt documented in this encounter Visit Diagnoses Diagnosis Abnormal finding on mammography Abnormal finding on mammography documented in this encounter Additional Health Concerns Infection Onset Date Last Indicated Resolved Time CoV-Risk 05/13/2024 05/13/2024 05/24/2024 1:24 AM EST CoV-Risk 08/19/2024 08/19/2024 08/30/2024 1:23 AM EDT documented as of this encounter Care Teams Adjunct Physical Education Instructor Relationship Specialty Start Date End Date Shantel Sands PA [address] [place] [address] PCP - General Scouring Machine Tender 03/29/20 10/29/23 Kay Overton MD [address] [place] [address] [email or web address] PCP - General Family Medicine 10/30/23 Marito Vizcarra MD [address] [address] Historical LMR Provider 03/04/17 Maxine Davis MD [address] [place] [address] Historical LMR Provider 03/04/17 Cornelia Hoang DO [address] [address] Referring Physician Anesthesiology 09/18/20 Rachele Marti, RN [address] [place] [address] iCMP Hydraulic Blocker 10/13/23 11/10/23 documented as of this encounter Additional Source Comments The information contained in this document represents components of the legal health record. It is not the complete legal health record.[facility]
--- OUTSIDE RECORDS SUMMARY | 2025-01-24 10:06 | XMS_ITS | Encounter Summary ---
Author Organization [facility] Address [address] [place] [address] [place] [address] Phone Care Team Providers Care Emergency Department Coordinator Name Role Phone Kay Overton MD Primary Care Provider [phone] Kay Overton MD Unavailable [phone] Marito Vizcarra MD Unavailable Bibi Sierra MD Unavailable [phone] Lashawn Butterfield NP Unavailable [phone] Justin Leblanc MD Unavailable [phone] Maxine Davis MD Unavailable Panfilo Gates MD Unavailable [phone] Mojgan Wang MD Unavailable [phone] Kay Overton MD Unavailable [phone] Shantel Sands Primary Care Provider [phone] Cornelia Hoang DO Unavailable [phone] Cassidy Gibson MD Unavailable [phone] Rachele Marti RN Unavailable Kay Overton MD Primary Care Provider [phone] Encounter Details Date Type Department Care Team (Latest Contact Info) Description 03/22/2020 Transcribe Orders Virtual Department [address] [place] [address] Everette Sanchez MD [address] [place] [address] [email or web address] Pre-operative laboratory examination (Primary Dx) Social History Tobacco Use Types Packs/Day Years [...] documented as of this encounter Results * COVID-19 PCR Order (03/27/2020 10:22 AM EST) Specimen Source NASOPHARYNGEAL SWAB (LOADING DOCK HELPER) [facility] COVID-19 Comment [id number] [facility] COVID Testing Status Sent to [facility] Micro Lab [facility] Other 03/27/2020 10:2 2 AM EST 03/27/2020 4:27 PM EST us Everette Sanchez MD BODY FLUIDS AND STOOLS ORDERA BLES Final Result [facility] [address] [place] [address] documented in this encounter Visit Diagnoses Diagnosis Pre-operative laboratory examination- Primary Pre-procedural laboratory examination documented in this encounter Additional Health Concerns Infection Onset Date Last Indicated Resolved Time CoV-Risk 05/13/2024 05/13/2024 05/24/2024 1:24 AM EST CoV-Risk 08/19/2024 08/19/2024 08/30/2024 1:23 AM EDT documented as of this encounter Care Teams Emergency Department Coordinator Relationship Specialty Start Date End Date Kay Overton MD PCP - General 03/03/17 03/28/20 Shantel Sands PA [address] [place] [address] PCP - General Gold Layer 03/29/20 10/29/23 Kay Overton MD [address] [place] [phone] [email or web address] PCP - General Family Medicine 10/30/23 Kay Overton MD [address] [place] [address] Historical LMR Provider 03/04/17 2 Marito Vizcarra MD [address] [place] [address] Historical LMR Provider 03/04/17 Bibi Sierra MD [address] [place] [address] Historical LMR Provider 03/04/17 Lashawn Butterfield, LOADING DOCK HELPER [address] [place] [address] Historical LMR Provider 03/04/17 2 Justin Leblanc MD [address] [place] [address], [address] [place] [address] Historical LMR Provider 03/04/17 05/25/21 Maxine Davis MD [address] [place] [address] [place] [address] Historical LMR Provider 03/04/17 Panfilo Gates MD [address] [place] [address] Historical LMR Provider 03/04/17 05/25/21 Mojgan Wang MD [address] [place] [address] Historical LMR Provider 03/04/17 05/25/21 Kay Overton MD [address] [place] [address] Insurance Assigned Provider 04/23/19 10/26/21 Cornelia Hoang DO [address] [place] [address] Referring Physician Anesthesiology 09/18/20 Cassidy Gibson MD [address] [place] [address] [place] [address] [email or web address] Insurance Assigned Provider 10/26/21 01/24/23 Rachele Marti, MOISES [address] [place] [address] i[employer] Medical Malpractice Paralegal 10/13/23 11/10/23 documented as of this encounter Additional Source Comments The information contained in this document represents components of the legal health record. It is not the complete legal health record.[facility]
--- OUTSIDE RECORDS SUMMARY | 2025-01-24 10:06 | XMS_ITS | Encounter Summary ---
Author Organization [facility] Address [address] [place] [address] Phone Care Team Providers Care Construction Accountant Name Role Phone Kay Overton MD Primary Care Provider [phone] Kay Overton MD Unavailable [phone] Marito Vizcarra MD Unavailable Bibi Sierra MD Unavailable [phone] Lashawn Butterfield NP Unavailable [phone] Justin Leblanc MD Unavailable [phone] Maxine Davis MD Unavailable Panfilo Gates MD Unavailable [phone] Mojgan Wang MD Unavailable [phone] Jennifer Perry MD Unavailable + Kay Overton MD Unavailable [phone] Kay Overton MD Unavailable [phone] Shantel Sands Primary Care Provider [phone] Cornelia Hoang DO Unavailable [phone] Cassidy Gibson MD Unavailable [phone] Rachele Marti RN Unavailable Kay Overton MD Primary Care Provider [phone] Reason for Referral * Physical Therapy (Routine) - Closed Specialty Diagnoses / Procedures Referred By Contac t Referred To Contact Physical Therapy Diagnoses Encounter for rehabilitation Justin Leblanc MD Phone: tel: fax: [email or web address] [facility] [address] [place] [address] Phone: tel: Referral ID Status Reason Start Date Expiration Date Visits Re quested Visits Authorized [id number] Closed 04/06/2017 04/17/2018 1 1 Encounter Details Date Type Department Care Team (Latest Contact Info) Description 04/17/2017 Transcribe Orders [facility] [address] [place] [address] Jason Ligia Venita [address] [place] [address] [email or web address] Encounter for rehabilitation (Primary Dx) Social History Tobacco Use Types Packs/Day Years Used Date Smoking Tobacco: Never Assessed Comments Unknown Sex and Gender Information Value Date Recorded Sex Assigned at Female 05/25/2017 9:38 AM EST Legal Sex Female 9:26 PM EDT Gender Identity Female 05/25/2017 9:38 AM EST Sexual Orientation Straight 05/25/2017 9: 38 AM EST documented as of this encounter Plan of Treatment Scheduled Referrals Name Type Priority Associated Diagnoses Orde r Schedule Ambulatory referral to [facility] Physical Therapy Outpatient Referral Routine Encounter for rehabilitation Ordered: 04/17/2017 documented as of this encounter Visit Diagnoses Diagnosis Encounter for rehabilitation- Primary documented in this encounter Additional Health Concerns Infection Onset Date Last Indicated Resolved Time CoV-Risk 05/13/2024 05/13/2024 05/24/2024 1:24 AM EST CoV-Risk 08/19/2024 08/19/2024 08/30/2024 1:23 AM EDT documented as of this encounter Care Teams Construction Accountant Relationship Specialty Start Date End Date Kay Overton MD [email or web address] PCP - General 03/03/17 03/28/20 Shantel Sands PA [address] [place] [address] PCP - General Faculty Support Coordinator 03/29/20 10/29/23 Kay Overton MD [address] [place] [address] PCP - General Family Medicine 10/30/23 Kay Overton MD [address] [place] [address] Historical LMR Provider 03/04/17 2 Marito Vizcarra MD [address] [place] [address] Historical LMR Provider 03/04/17 Bibi Sierra MD [address] [place] [address] Historical LMR Provider 03/04/17 Lashawn Butterfield, AIRFIELD OPERATIONS SPECIALIST [address] [place] [address] Historical LMR Provider 03/04/17 2 Justin Leblanc MD [address] [place] [address], [address] [place] [address] Historical LMR Provider 03/04/17 05/25/21 Maxine Davis MD [address] [place] [address], [address] [address] Historical LMR Provider 03/04/17 Panfilo Gates MD [address] [address] Historical LMR Provider 03/04/17 05/25/21 Mojgan Wang MD [address] [place] [address] Historical LMR Provider 03/04/17 05/25/21 Jennifer Perry MD [address] [place] [address] [email or web address] Insurance Assigned Provider 08/15/17 09/19/17 Kay Overton MD [address] [place] [address] Insurance Assigned Provider 09/19/17 06/19/18 Kay Overton MD [address] [place] [address] Insurance Assigned Provider 04/23/19 10/26/21 Cornelia Hoang DO [address] [address] Referring Physician Anesthesiology 09/18/20 Cassidy Gibson MD [address] [place] [address] [place] [address] Insurance Assigned Provider 10/26/21 01/24/23 Rachele Marti, RN [address] [place] [address] [email or web address] iCMP Research Chef 10/13/23 11/10/23 documented as of this encounter Additional Source Comments The information contained in this document represents components of the legal health record. It is not the complete legal health record.[facility]
--- OUTSIDE RECORDS SUMMARY | 2025-01-24 10:06 | XMS_ITS | Encounter Summary ---
Author Organization [facility] Address [address] [place] [address] Phone Care Team Providers Care Ceo Name Role Phone Kay Overton MD Primary Care Provider [phone] Kay Overton MD Unavailable +[phone] Marito Vizcarra MD Unavailable Bibi Sierra MD Unavailable [phone] Lashawn Butterfield NP Unavailable [phone] Justin Leblanc MD Unavailable +[phone] Maxine Davis MD Unavailable Panfilo Gates MD Unavailable +[phone] Mojgan Wang MD Unavailable +[phone] Kay Overton MD Unavailable +[phone] Kay Overton MD Unavailable +[phone] Shantel Sands Primary Care Provider +[phone] Cornelia Hoang DO Unavailable [phone] Cassidy Gibson MD Unavailable [phone] Rachele Marti RN Unavailable Kay Overton MD Primary Care Provider [phone] Encounter Details Date Type Department Care Team (Late st Contact Info) Description 10/09/2017 Procedure Pass [facility], [address] [place] [address] Social History Tobacco Use Types Packs/Day Years [...] on file documented as of this encounter Visit Diagnoses Not on filedocumented in this encounter Additional Health Concerns Infection Onset Date Last Indicated Resolved Time CoV-Risk 05/13/2024 05/13/2024 05/24/2024 1:24 AM EST CoV-Risk 08/19/2024 08/19/2024 08/30/2024 1:23 AM EDT documented as of this encounter Care Teams Ceo Relationship Specialty Start Date End Date Kay Overton MD [email or web address] PCP - General 03/03/17 03/28/20 Shantel Sands PA [address] [place] [address] PCP - General Associate Director Of Biostatistics 03/29/20 10/29/23 Kay Overton MD [address] [place] [phone] [email or web address] PCP - General Family Medicine 10/30/23 Kay Overton MD [address] [place] [address] [email or web address] Historical LMR Provider 03/04/17 2 Marito Vizcarra MD [address] [place] [address] Historical LMR Provider 03/04/17 Bibi Sierra MD [address] [place] [address] Historical LMR Provider 03/04/17 Lashawn Butterfield, PAINT ROLLER COVERS SUPERVISOR [address] [place] [address] Historical LMR Provider 03/04/17 2 Justin Leblanc MD [address] [place] [address], [address] [place] [address] Historical LMR Provider 03/04/17 05/25/21 Maxine Davis MD [address] [place] [address] Historical LMR Provider 03/04/17 Panfilo Gates MD [address] [place] [address] Historical LMR Provider 03/04/17 05/25/21 Mojgan Wang MD [address] [place] [address] Historical LMR Provider 03/04/17 05/25/21 Kay Overton MD [address] [place] [address] [email or web address] Insurance Assigned Provider 09/19/17 06/19/18 Kay Overton MD [address] [place] [address] Insurance Assigned Provider 04/23/19 10/26/21 Cornelia Hoang DO [address] [address] Referring Physician Anesthesiology 09/18/20 Cassidy Gibson MD [address] [place] [address] [place] [address] [email or web address] Insurance Assigned Provider 10/26/21 01/24/23 Rachele Marti, RN 10 [place] [address] [email or web address] [employer] Supervisor St[employer] 10/13/23 11/10/23 documented as of this encounter Additional Source Comments The information contained in this document represents components of the legal health record. It is not the complete legal health record.[facility]
--- OUTSIDE RECORDS SUMMARY | 2025-01-24 10:06 | XMS_ITS | Encounter Summary ---
Author Organization [facility] Address [address] [place] [address] [place] [address] Phone Care Team Providers Care Makeup Artistry Instructor Name Role Phone Kay Overton MD Primary Care Provider [phone] Kay Overton MD Unavailable +[phone] Marito Vizcarra MD Unavailable Bibi Sierra MD Unavailable [phone] Lashawn Butterfield NP Unavailable [phone] Justin Leblanc MD Unavailable [phone] Maxine Davis MD Unavailable Panfilo Gates MD Unavailable +[phone] Mojgan Wang MD Unavailable +[phone] Kay Overton MD Unavailable +[phone] Kay Overton MD Unavailable +[phone] Shantel Sands Primary Care Provider +[phone] Cornelia Hoang DO Unavailable [phone] Cassidy Gibson MD Unavailable [phone] Rachele Marti RN Unavailable Kay Overton MD Primary Care Provider [phone] Encounter Details Date Type Department Care Team (Late st Contact Info) Description 02/10/2018 Procedure Pass [facility] [address] [place] [address] Social History Tobacco Use Types Packs/Day Years [...] Indicated Resolved Time CoV-Risk 05/13/2024 05/13/2024 05/24/2024 1:2 4 AM EST CoV-Risk 08/19/2024 08/19/2024 08/30/2024 1:23 AM EDT documented as of this encounter Care Teams Makeup Artistry Instructor Relationship Specialty Start Date End Date Kay Overton MD [email or web address] PCP - General 03/03/17 03/28/20 Shantel Sands PA [address] [place] [address] PCP - General Wick And Base Assembler 03/29/20 10/29/23 Kay Overton MD [address] [place] [phone] [email or web address] PCP - General Family Medicine 10/30/23 Kay Overton MD [address] [place] [address] [email or web address] Historical LMR Provider 03/04/17 2 Marito Vizcarra MD [address] [place] [address] Historical LMR Provider 03/04/17 Bibi Sierra MD [address] [place] [address] Historical LMR Provider 03/04/17 Lashawn Butterfield NP [address] [place] [address] Historical LMR Provider 03/04/17 2 Justin Leblanc MD [address] [place] [address], [address] [place] [address] Historical LMR Provider 03/04/17 05/25/21 Maxine Davis MD [address] [place] [address] Historical LMR Provider 03/04/17 Panfilo Gates MD [address] [place] [address] Historical LMR Provider 03/04/17 05/25/21 Mojgan Wang MD [address] [place] [address] Historical LMR Provider 03/04/17 05/25/21 Kay Overton MD [address] [place] [address] [email or web address] Insurance Assigned Provider 09/19/17 06/19/18 Kay Overton MD [address] [place] [address] Insurance Assigned Provider 04/23/19 10/26/21 Cornelia Hoang DO 1 [facility] [address] [place] [address] Referring Physician Anesthesiology 09/18/20 Cassidy Gibson MD [address] [place] [address] [place] [address] [email or web address] Insurance Assigned Provider 10/26/21 01/24/23 Rachele Marti, RN [address] [place] [address] [email or web address] iCMP Design Verification Engineer 10/13/23 11/10/23 documented as of this encounter Additional Source Comments The information contained in this document represents components of the legal health record. It is not the complete legal health record.[facility]
--- OUTSIDE RECORDS SUMMARY | 2025-01-24 10:06 | XMS_ITS | Encounter Summary ---
Author Organization [facility] Address [address] [place] [address] Phone Care Team Providers Care Assistant Director Of Residence Life Name Role Phone Kay Overton MD Primary Care Provider [phone] Kay Overton MD Unavailable [phone] Marito Vizcarra MD Unavailable Bibi Sierra MD Unavailable [phone] Lashawn Butterfield NP Unavailable [phone] Justin Leblanc MD Unavailable [phone] Maxine Davis MD Unavailable Panfilo Gates MD Unavailable +[phone] Mojgan Wang MD Unavailable [phone] Jennifer Perry MD Unavailable + Kay Overton MD Unavailable +[phone] Kay Overton MD Unavailable [phone] Shantel Sands Primary Care Provider + [phone] Cornelia Hoang DO Unavailable [phone] Cassidy Gibson MD Unavailable [phone] Rachele Marti RN Unavailable Kay Overton MD Primary Care Provider [phone] Encounter Details Date Type Department Care Team (Late st Contact Info) Description 05/14/2017 Transcribe Orders [facility] [address] [address] Mojgan Wang MD 22 [facility], [address] [place] [address] [email or web address] Social History Tobacco Use Types Packs/Day Years Used Date Smoking Tobacco: Former Smokeless Tobacco: Never Alcohol Use Standard Drinks/Week [...] documented as of this encounter Care Teams Assistant Director Of Residence Life Relationship Specialty Start Date End Date Kay Overton MD [email or web address] PCP - General 03/03/17 03/28/20 Shantel Sands PA [address] [place] [address] PCP - General Head Coach 03/29/20 10/29/23 Kay Overton MD [address] [place] [phone] [email or web address] PCP - General Family Medicine 10/30/23 Kay Overton MD [address] [place] [address] Historical LMR Provider 03/04/17 2 Marito Vizcarra MD [address] [place] [address], [address] [address] Historical LMR Provider 03/04/17 Bibi Sierra MD [address] [place] [address] Historical LMR Provider 03/04/17 Lashawn Butterfield DIRECTOR OF LABORATORY OPERATIONS [address] [place] [address] Historical LMR Provider 03/04/17 2 Justin Leblanc MD [address] [place] [address], 2nd [place] [address] Historical LMR Provider 03/04/17 05/25/21 Maxine Davis MD [address] [place] [address] Historical LMR Provider 03/04/17 Panfilo Gates MD [address] [place] [address] Historical LMR Provider 03/04/17 05/25/21 Mojgan Wang MD [address] [place] [address] Historical LMR Provider 03/04/17 05/25/21 Jennifer Perry MD [address] [place] [address] [email or web address] Insurance Assigned Provider 08/15/17 09/19/17 Kay Overton MD [address] [place] [address] Insurance Assigned Provider 09/19/17 06/19/18 Kay Overton MD [address] [place] [address] Insurance Assigned Provider 04/23/19 10/26/21 Cornelia Hoang DO [address] [address] Referring Physician Anesthesiology 09/18/20 Cassidy Gibson MD [address] [place] [address] [place] [address] [email or web address] Insurance Assigned Provider 10/26/21 01/24/23 Rachele Marti, RN [address] [place] [address] [email or web address] iCMP [employer] Supervisor 10/13/23 11/10/23 documented as of this encounter Additional Source Comments The information contained in this document represents components of the legal health record. It is not the complete legal health record.[facility]
--- OUTSIDE RECORDS SUMMARY | 2025-01-24 10:06 | XMS_ITS | Encounter Summary ---
Author Organization [facility] Address [address] [place] [address] [place] [address] Phone Care Team Providers Care Partnership Marketing Manager Name Role Phone Kay Overton MD Unavailable Marito Vizcarra MD Unavailable Bibi Sierra MD Unavailable [phone] Lashawn Butterfield NP Unavailable [phone] Justin Leblanc MD Unavailable Maxine Davis MD Unavailable Panfilo Gates MD Unavailable Mojgan Wang MD Unavailable [phone] Kay Overton MD Unavailable Shantel Sands Primary Care Provider [phone] Cornelia Hoang DO Unavailable [phone] Cassidy Gibson MD Unavailable Rachele Marti RN Unavailable Kay Overton MD Primary Care Provider [phone] Encounter Details Date Type Department Care Team (Late st Contact Info) Description 11/12/2020 Procedure Pass [facility] - [address] [place] [address] Social History Tobacco Use Types Packs/Day Years [...] documented as of this encounter Care Teams Partnership Marketing Manager Relationship Specialty Start Date End Date Shantel Sands PA [address] [place] [address] PCP - General Apparel Sales Associate 03/29/20 10/29/23 Kay Overton MD [address] [place] [phone] [email or web address] PCP - General Family Medicine 10/30/23 Kay Overton MD [address] [place] [address] [email or web address] Historical LMR Provider 03/04/17 Marito Levin MD [address] [place] [address], [facility] [address] [place] [address] [email or web address] Historical LMR Provider 03/04/17 Bibi Sierra MD [address] [place], [place] [address] Historical LMR Provider 03/04/17 Lashawn Butterfield, AIR BRAKE OPERATOR [address] [place] [address] Historical LMR Provider 03/04/17 2 Justin Leblanc MD [address] [place] [address], [address] [place] [address] Historical LMR Provider 03/04/17 05/25/21 Maxine Davis MD [address] [place] [address] Historical LMR Provider 03/04/17 Panfilo Gates MD [address] [place] [address] Historical LMR Provider 03/04/17 05/25/21 Mojgan Wang MD [address] [place] [address] Historical LMR Provider 03/04/17 05/25/21 Kay Overton MD [address] [place] [address] Insurance Assigned Provider 04/23/19 10/26/21 Cornelia Hoang DO [address] [place] [address] Referring Physician Anesthesiology 09/18/20 Cassidy Gibson MD [address] [place] [address] [place] [address] [email or web address] Insurance Assigned Provider 10/26/21 01/24/23 Rachele Marti RN [address] [place] [address] [email or web address] iCMP Director College 10/13/23 11/10/23 documented as of this encounter Additional Source Comments The information contained in this document represents components of the legal health record. It is not the complete legal health record.[facility]
--- OUTSIDE RECORDS SUMMARY | 2025-01-24 10:06 | XMS_ITS | Encounter Summary ---
Author Organization [facility] Address [address] [place] [address] Phone Care Team Providers Care Juice Mixer Name Role Phone Mraito Vizcarra MD Unavailable Maxine Davis MD Unavailable Shantel Sands Primary Care Provider [phone] Cornelia Hoang DO Unavailable [phone] Cassidy Gibson MD Unavailable [phone] Rachele Marti RN Unavailable Kay Overton MD Primary Care Provider [phone] Encounter Details Date Type Department Care Team (Late st Contact Info) Description 07/17/2022 Procedure Pass [facility] - [address] [place] [address] Social History Tobacco Use Types Packs/Day Years [...] documented as of this encounter Care Teams Juice Mixer Relationship Specialty Start Date End Date Shantel Sands PA [address] [place] [address] PCP - General Automatic Steel Tie Adjuster 03/29/20 10/29/23 Kay Overton MD [address] [place] [address] [email or web address] PCP - General Family Medicine 10/30/23 Marito Vizcarra MD [address] [address] [email or web address] Historical LMR Provider 03/04/17 Maxine Davis MD [address] [address] [email or web address] Historical LMR Provider 03/04/17 Cornelia Hoang DO [address] [address] Referring Physician Anesthesiology 09/18/20 Cassidy Gibson MD [address] [place] [address] [place] [address] [email or web address] Insurance Assigned Provider 10/26/21 01/24/23 Rachele Marti RN [address] [place] [address] [email or web address] i[employer] Assembly Riveter 10/13/23 11/10/23 documented as of this encounter Additional Source Comments The information contained in this document represents components of the legal health record. It is not the complete legal health record.[facility]
--- OUTSIDE RECORDS SUMMARY | 2025-01-24 10:06 | XMS_ITS | Encounter Summary ---
Author Organization [facility] Address [address] [place] [address] Phone Care Team Providers Care Tree Fruit [employer] Nut Farming Supervisor Name Role Phone Kay Overton MD Primary Care Provider [phone] Kay Overton MD Unavailable [phone] Marito Vizcarra MD Unavailable Bibi Sierra MD Unavailable [phone] Lashawn Butterfield NP Unavailable [phone] Justin Leblanc MD Unavailable [phone] Maxine Davis MD Unavailable Panfilo Gates MD Unavailable [phone] Mojgan Wang MD Unavailable [phone] Kay Overton MD Unavailable [phone] Kay Overton MD Unavailable [phone] Shantel Sands Primary Care Provider + [phone] Cornelia Hoang DO Unavailable [phone] Cassidy Gibson MD Unavailable [phone] Rachele Marti RN Unavailable Kay Overton MD Primary Care Provider [phone] Encounter Details Date Type Department Care Team (Late st Contact Info) Description 10/09/2017 Ancillary Orders Virtual Department [address] [place], [place] [phone] Shantel Sands PA [address] [place] [address] [place] [address] Pain in both knees, unspecified chronicity; Right knee pain, unspecified chronicity Social History Tobacco Use Types Packs/Day Years [...] documented as of this encounter Results * MRI KNEE WITHOUT CONTRAST (RIGHT) (10/22/2017 10:11 AM EDT) Anatomical Region Laterality Modality Knee Right Magnetic Resonan ce 10/22/2017 10:4 0 AM EDT Impressions 10/22/2017 10:56 AM EDT Minor signal changes in the cartilage of the patella. No joint effusion. Degenerative meniscal signal without definite tear or other source of the patient's pain. Ordering provider: Shantel Sands PA-C POS - [id number] Edited by: Hamida Hartman on 10/22/2017 10:50 AM Narrative 10/22/2017 10:56 AM EDT HISTORY: Knee pain and instability. Clicking and popping. Decreased range of motion. COMPARISON: Radiographs July 22 TECHNIQUE: Exam performed on a 1.5 Leeanna high-field MRI scanner. 3 plane axial proton density with fat saturation, sagittal T2 with fat saturation, and sagittal T1-weighted sequences are obtained. FINDINGS: No joint effusion or King's cyst. No osteochondral lesions. There is horizontal degenerative meniscal signal but no tears are evident. Cruciate and medial and fibular collateral ligaments appear intact. No osteochondral lesions. Cartilage appears overall fairly well preserved. There may be some slight fissuring at the cartilage of the lateral facet of the patella and medially near the apex but no prominent cartilage changes are seen. No soft tissue masses or inflammatory changes. No worrisome marrow signal change. Procedure Note Domingo De Santiago MD - 10/22/2017 HISTORY: Knee pain and instability. Clicking and popping. Decreased rangeof motion. COMPARISON: Radiographs July 22 TECHNIQUE: Exam performed on a 1.5 Leeanna high-field MRI scanner. 3 planeaxial proton density with fat saturation, sagittal T2 with fat saturation,and sagittal T1- weighted sequences are obtained. FINDINGS: No joint effusion or King's cyst. No osteochondral lesions. There ishorizontal degenerative meniscal signal but no tears are evident. Cruciate and medial and fibular collateral ligaments appear intact. Noosteochondral lesions. Cartilage appears overall fairly well preserved.There may be some slight fissuring at the cartilage of the lateral facetof the patella and medially near the apex but no prominent cartilagechanges are seen. No soft tissue masses or inflammatory changes. No worrisome marrow signalchange. IMPRESSION: Minor signal changes in the cartilage of the patella. No joint effusion.Degenerative meniscal signal without definite tear or other source of thepatient's pain. Ordering provider: Shantel Sands PA-C POS - [id number] Edited by: Hamida Hartman on 10/22/2017 10:50 AM Shantel STROUD IMG MR EXTREMITY Final Res ult documented in this encounter Visit Diagnoses Diagnosis Pain in both knees, unspecified chronicity Right knee pain, unspecified chronicity Pain in both knees, unspecified chronicity Right knee pain, unspecified chronicity documented in this encounter Additional Health Concerns Infection Onset Date Last Indicated Resolved Time CoV-Risk 05/13/2024 05/13/2024 05/24/2024 1:24 AM EST CoV-Risk 08/19/2024 08/19/2024 08/30/2024 1:23 AM EDT documented as of this encounter Care Teams Tree Fruit And Nut Farming Supervisor Relationship Specialty Start Date End Date Kay Overton MD PCP - General 03/03/17 03/28/20 Shantel Sands PA [address] [place] [address] PCP - General Manager Case Management 03/29/20 10/29/23 Kay Overton MD [address] [place] [phone] [email or web address] PCP - General Family Medicine 10/30/23 Kay Overton MD [address] [place] [address] Historical LMR Provider 03/04/17 2 Marito Vizcarra MD [address] [place] [address], [address] [address] Historical LMR Provider 03/04/17 Bibi Sierra MD [address] [place] [address] Historical LMR Provider 03/04/17 Lashawn Butterfield, TELECOMMUNICATIONS CABLE JOINTER [address] [place] [address] Historical LMR Provider 03/04/17 2 Justin Leblanc MD [address] [place] [address], 2[address] [place] [address] Historical LMR Provider 03/04/17 05/25/21 Maxine Davis MD [address] [address] Historical LMR Provider 03/04/17 Panfilo Gates MD [address] [place] [address] Historical LMR Provider 03/04/17 05/25/21 Mojgan Wang MD [address] [place] [address] Historical LMR Provider 03/04/17 05/25/21 Kay Overton MD [address] [place] [address] [email or web address] Insurance Assigned Provider 09/19/17 06/19/18 Kay Overton MD [address] [place] [address] [email or web address] Insurance Assigned Provider 04/23/19 10/26/21 Cornelia Hoang DO [address] [place] [address] Referring Physician Anesthesiology 09/18/20 Cassidy Gibson MD [address] [place] [address] [place] [address] [email or web address] Insurance Assigned Provider 10/26/21 01/24/23 Rachele Marti RN [address] [place] [address] [email or web address] iCMP Osteopathic Physician 10/13/23 11/10/23 documented as of this encounter Additional Source Comments The information contained in this document represents components of the legal health record. It is not the complete legal health record.[facility]
--- OUTSIDE RECORDS SUMMARY | 2025-01-24 10:06 | XMS_ITS | Encounter Summary ---
Author Organization [facility] Address [address] [place] [address] Phone Care Team Providers Care Videotape Editor Name Role Phone Kay Overton MD Primary Care Provider [phone] Kay Overton MD Unavailable [phone] Marito Vizcarra MD Unavailable Bibi Sierra MD Unavailable [phone] Lashawn Butterfield NP Unavailable [phone] Justin Leblanc MD Unavailable [phone] Maxine Davis MD Unavailable Panfilo Gates MD Unavailable [phone] Mojgan Wang MD Unavailable [phone] Kay Overton MD Unavailable [phone] Shantel Sands Primary Care Provider [phone] Cornelia Hoang DO Unavailable [phone] Cassidy Gibson MD Unavailable [phone] Rachele Marti RN Unavailable Kay Overton MD Primary Care Provider [phone] Encounter Details Date Type Department Care Team (Latest Contact Info) Description 01/31/2020 Transcribe Orders [address] [place] [address] Edith Candelario PA [address] [place] [address] Abdominal discomfort (Primary Dx) Social History Tobacco Use Types [...] documented as of this encounter Results * Immunoglobulin A (01/31/2020 12:13 PM EDT) IgA 111 70 - 400 mg/dL [facility] Blood 01/31/2020 12:1 3 PM EDT 01/31/2020 12:16 PM EDT us Edith STROUD LAB BLOOD ORDERABLES Final Result Performing Organization Address City/[facility]/ZIP Co de Phone Number [address] [address] * Tissue transglutaminase IgA (01/31/2020 12:13 PM EDT) TTG IGA ANTIBODY <1.2 <4.0 (Negative) U/mL [facility] Blood 01/31/2020 12:1 3 PM EDT 01/31/2020 12:16 PM EDT us Edith STROUD LAB BLOOD ORDERABLES Final Result [facility] [address] [place] [address] * (ABNORMAL) Lipase (01/31/2020 12:13 PM EDT) LIPASE 74(H) 16 - 63 U/L [facility] Blood 01/31/2020 12:1 3 PM EDT 01/31/2020 12:16 PM EDT Edith STROUD LAB BLOOD ORDERABLES Final Result Performing Organization Address City/[facility]/ZIP Co de Phone Number [address] [address] * C-Reactive Protein (01/31/2020 12:13 PM EDT) C REACTIVE PROTEIN <0.3 0.0 - 4.0 mg/L [facility] Blood 01/31/2020 12:1 3 PM EDT 01/31/2020 12:16 PM EDT Edith STROUD LAB BLOOD ORDERABLES Final Result Performing Organization Address [facility] Co de Phone Number [address] [address] * CBC and differential (01/31/2020 12:13 PM EDT) WBC 5.17 4.00 - 11.00 K/uL [facility] Comment:Note Reference Range updates to all CBC and Differential results. RBC 4.05 3.72 - 5.30 M/uL [facility] HGB 12.1 10.6 - 15.5 g/dL [facility] Comment:Note updated Referen ce Ranges for all CBC and Differential results. HCT 36.9 32.0 - 45.0 % [facility] PLT 195 140 - 430 K/uL [facility] MCV 91.1 78.0 - 97.0 fL [facility] MCH 29.9 25.0 - 33.0 pg [facility] MCHC 32.8 32.0 - 36.0 g/dL [facility] RDW 12.9 11.0 - 16.0 % [facility] MPV 12.2 8.4 - 12.8 fl [facility] NRBC 0.00 0 /100 WBCs [facility] ABSOLUTE NRBC 0.00 0 K/uL [facility] DIFF METHOD Auto [facility] NEUTS 56.2 43.0 - 75.0 % [facility] LYMPHS 34.8 18.2 - 47.4 % [facility] MONOS 7.4 4.00 - 11.00 % [facility] EOS 1.0 0.0 - 8.0 % [facility] BASOS 0.4 0.0 - 2.0 % [facility] Granulocytes, immature (%) 0.2 0.0 - 0.9 % [facility] ABSOLUTE NEUTS 2.91 1.80 - 7.70 K/uL [facility] ABSOLUTE LYMPHS 1.80 1.00 - 3.10 K/uL [facility] ABSOLUTE MONOS 0.38 0.20 - 0.80 K/uL [facility] ABSOLUTE EOS 0.05 0.00 - 0.80 K/uL [facility] ABSOLUTE BASOS 0.02 0.00 - 0.09 K/uL [facility] Granulocytes, immature 0.01 0.00 - 0.05 K/uL [facility] Blood 01/31/2020 12:1 3 PM EDT 01/31/2020 12:16 PM EDT us Edith STROUD LAB BLOOD ORDERABLES Final Result Performing Organization Address City/State/[facility] Co de Phone Number [facility] [address] [place] [address] * Comprehensive metabolic panel (01/31/2020 12:13 PM EDT) SODIUM 143 133 - 146 mmol/L [facility] POTASSIUM 4.5 3.3 - 5.1 mmol/L [facility] CHLORIDE 108 96 - 108 mmol/L [facility] CO2 28 21 - 35 mmol/L [facility] BUN 9 6 - 19 mg/dL [facility] CREATININE 0.70 0.5 - 1.5 mg/dL [facility] GLUCOSE 80 70 - 99 mg/dL [facility] ALBUMIN 4.4 3.9 - 4.8 g/dL [facility] TOTAL PROTEIN 6.7 6.5 - 8.0 g/dL [facility] CALCIUM 9.3 8.4 - 10.3 mg/dL [facility] ALKALINE PHOSPHATASE 39 39 - 117 U/L [facility] TOTAL BILIRUBIN 0.5 0.0 - 1.2 mg/dL [facility] AST 15 0 - 37 U/L [facility] ALT 19 0 - 40 U/L [facility] GLOBULIN 2.3 1 - 4.8 g/dL [facility] EGFR 107 >59 mL/min/1.7 3m2 [facility] Comment:Estimated glomerular filtration rate calculated using the CKD-EPI equation. ANION GAP 12 10 - 20 mmol/L [facility] Blood 01/31/2020 12:1 3 PM EDT 01/31/2020 12:16 PM EDT us Edith STROUD LAB BLOOD ORDERABLES Final Result Performing Organization Address City/State/[facility] Co de Phone Number [facility] [address] [place] [address] documented in this encounter Visit Diagnoses Diagnosis Abdominal discomfort- Primary Abdominal pain, unspecified site documented in this encounter Additional Health Concerns Infection Onset Date Last Indicated Resolved Time CoV-Risk 05/13/2024 05/13/2024 05/24/2024 1:24 AM EST CoV-Risk 08/19/2024 08/19/2024 08/30/2024 1:23 AM EDT documented as of this encounter Care Teams Videotape Editor Relationship Specialty Start Date End Date Kay Overton MD PCP - General 03/03/17 03/28/20 Shantel Sands PA [address] [place] [address] PCP - General [employer] Neck Whipper 03/29/20 10/29/23 Kay Overton MD [address] [place] [phone] [email or web address] PCP - General Family Medicine 10/30/23 Kay Overton MD [address] [place] [address] Historical LMR Provider 03/04/17 2 Marito Vizcarra MD [address] [place] [address] Historical LMR Provider 03/04/17 Bibi Sierra MD [address] [place] [address] Historical LMR Provider 03/04/17 Lashawn Butterfield NP [address] [place] [address] Historical LMR Provider 03/04/17 2 Justin Leblanc MD [address] [place] [address], [address] [place] [address] Historical LMR Provider 03/04/17 05/25/21 Maxine Davis MD [address] [place] [address] Historical LMR Provider 03/04/17 Panfilo Gates MD [address] [place] [address] Historical LMR Provider 03/04/17 05/25/21 Mojgan Wang MD [address] [place] [address] [email or web address] Historical LMR Provider 03/04/17 05/25/21 Kay Overton MD [address] [place] [address] Insurance Assigned Provider 04/23/19 10/26/21 Cornelia Hoang DO [address] [address] Referring Physician Anesthesiology 09/18/20 Cassidy Gibson MD [address] [place] [address] [place] [address] [email or web address] Insurance Assigned Provider 10/26/21 01/24/23 Rachele Marti, MOISSE [address] [place] [address] [email or web address] [employer] Stores Attendant 10/13/23 11/10/23 documented as of this encounter Additional Source Comments The information contained in this document represents components of the legal health record. It is not the complete legal health record.[facility]
--- OUTSIDE RECORDS SUMMARY | 2025-01-24 10:06 | XMS_ITS | Encounter Summary ---
Author Organization [facility] Address [address] [place] [address] Phone Care Team Providers Care Director Erp Name Role Phone Kay Overton MD Primary Care Provider [phone] Kay Overton MD Unavailable [phone] Marito Vizcarra MD Unavailable Bibi Sierra MD Unavailable [phone] Lashawn Butterfield NP Unavailable [phone] Justin Leblanc MD Unavailable [phone] Maxine Davis MD Unavailable Panfilo Gates MD Unavailable [phone] Mojgan Wang MD Unavailable [phone] Kay Overton MD Unavailable [phone] Shantel Sands Primary Care Provider [phone] Cornelia Hoang DO Unavailable [phone] Cassidy Gibson MD Unavailable [phone] Rachele Marti RN Unavailable Kay Overton MD Primary Care Provider [phone] Encounter Details Date Type Department Care Team (Latest Contact Info) Description 02/15/2020 Transcribe Orders [address] [place] [address] Edith Candelario PA [address] [place] [address] Carbohydrate intolerance (Primary Dx) Social History Tobacco Use Types [...] documented as of this encounter Results * Magnesium (02/15/2020 2:50 PM EDT) MAGNESIUM 1.9 1.6 - 2.6 mg/dL [facility] Blood 02/15/2020 2:50 PM EDT 02/15/2020 2:55 PM EDT us Edith STROUD LAB BLOOD ORDERABLES Final Result Performing Organization Address City/[facility]/ZIP Co de Phone Number [address] [address] * 25-OH vitamin D (02/15/2020 2:50 PM EDT) 25 OH VIT D (TOTAL) 40 30 - 60 ng/mL [facility] Blood 02/15/2020 2:50 PM EDT 02/15/2020 2:55 PM EDT us Edith STROUD LAB BLOOD ORDERABLES Final Result Performing Organization Address [facility]/ZIP Co de Phone Number [address] [address] * Folate (02/15/2020 2:50 PM EDT) FOLIC ACID 9.4 4.2 - 19.9 ng/mL [facility] Blood 02/15/2020 2:50 PM EDT 02/15/2020 2:55 PM EDT Edith STROUD LAB BLOOD ORDERABLES Final Result Performing Organization Address [facility]/ZIP Co de Phone Number [address] [address] * Vitamin B12 (02/15/2020 2:50 PM EDT) VITAMIN B12 322 232 - 1,245 pg/mL [facility] Blood 02/15/2020 2:50 PM EDT 02/15/2020 2:55 PM EDT Edith STROUD LAB BLOOD ORDERABLES Final Result Performing Organization Address [facility] de Phone Number [address] [address] * Ferritin (02/15/2020 2:50 PM EDT) FERRITIN 28 13 - 150 ug/L [facility] Blood 02/15/2020 2:50 PM EDT 02/15/2020 2:55 PM EDT Edith STROUD LAB BLOOD ORDERABLES Final Result Performing Organization Address [facility] Co de Phone Number [address] [address] documented in this encounter Visit Diagnoses Diagnosis Carbohydrate intolerance- Primary documented in this encounter Additional Health Concerns Infection Onset Date Last Indicated Resolved Time CoV-Risk 05/13/2024 05/13/2024 05/24/2024 1:24 AM EST CoV-Risk 08/19/2024 08/19/2024 08/30/2024 1:23 AM EDT documented as of this encounter Care Teams Director Erp Relationship Specialty Start Date End Date Kay Overton MD PCP - General 03/03/17 03/28/20 Shantel Sands PA [address] [place] [address] PCP - General Drywall Worker 03/29/20 10/29/23 Kay Overton MD [address] [place] [phone] [email or web address] PCP - General Family Medicine 10/30/23 Kay Overton MD [address] [place] [address] Historical LMR Provider 03/04/17 2 Marito Vizcarra MD [address] [place] [address] Historical LMR Provider 03/04/17 Bibi Sierra MD [address] [place] [address] Historical LMR Provider 03/04/17 Lashawn Butterfield, EMERGENCY DEPARTMENT MANAGER [address] [place] [address] Historical LMR Provider 03/04/17 2 Justin Leblanc MD [address] [place] [address], [address] [place] [address] Historical LMR Provider 03/04/17 05/25/21 Maxine Davis MD [address] [place] [address] Historical LMR Provider 03/04/17 Panfilo Gates MD [address] [place] [address] Historical LMR Provider 03/04/17 05/25/21 Mojgan Wang MD [address] [place] [address] Historical LMR Provider 03/04/17 05/25/21 Kay Overton MD [address] [place] [address] Insurance Assigned Provider 04/23/19 10/26/21 Cornelia Hoang DO [address] [place] [address] Referring Physician Anesthesiology 09/18/20 Cassidy Gibson MD [address] [place] [address] [place] [address] [email or web address] Insurance Assigned Provider 10/26/21 01/24/23 Rachele Marti, MOISES [address] [place] [address] [employer] Operations [employer] 10/13/23 11/10/23 documented as of this encounter Additional Source Comments The information contained in this document represents components of the legal health record. It is not the complete legal health record.[facility]
--- OUTSIDE RECORDS SUMMARY | 2025-01-24 10:07 | XMS_ITS | Encounter Summary ---
Author Organization [facility] Address [address] [place] [address] [place] [address] Phone Care Team Providers Care Hotel [employer] Motel Room Service Supervisor Name Role Phone Marito Vizcarra MD Unavailable Maxine Davis MD Unavailable Shantel Sands Primary Care Provider [phone] Cornelia Hoang DO Unavailable [phone] Cassidy Gibson MD Unavailable [phone] Rachele Marti RN Unavailable Kay Overton MD Primary Care Provider [phone] Encounter Details Date Type Department Care Team (Latest Contact Info) Description 06/18/2022 Transcribe Orders Virtual Department [address] [place] [address] Lashawn Parry PA-C [address] [place] [address] [email or web address] Change in bowel habits (Primary Dx); Rectal bleeding Social History Tobacco Use Types Packs/Day Years [...] documented as of this encounter Results * US PELVIS TRANSABDOMINAL PLUS TRANSVAGINAL (06/20/2022 2:36 PM EST) Anatomical Region Laterality Modality Pelvis, Uterus/Adnexa Ultrasound 06/24/2022 1:10 PM EST Impressions 06/24/2022 2:26 PM EST 1. Endometrial stripe measures 11 mm in thickness. Assuming the patient is premenopausal this is within normal limits. Clinical follow-up recommended. No other uterine abnormalities. 2. Probable small functional cyst or large follicle within each ovary. Ovaries otherwise appear normal. Narrative 06/24/2022 2:26 PM EST US PELVIS TRANSABDOMINAL PLUS TRANSVAGINAL HISTORY: Pain, change in bowel habits, rectal bleeding. Reportedly, patient hasn't menstruated in months. TECHNIQUE: Pelvic Ultrasound Transabdominal performed for global imaging of the pelvis. Pelvic Ultrasound Transvaginal performed for detailed imaging of the endometrium and/or adnexa. COMPARISON: CT pelvis 01/15/2018. FINDINGS: Uterus: Size: 7.9 cm x 5.0 cm x 4.4 cm cm. Orientation: Anteverted. Myometrium: No masses visualized. Endometrium: The endometrial stripe measures 11 mm in thickness. Right adnexa: Ovary: The ovary measures 3.4 cm x 3.0 cm x 2.1 cm. There is a 2.8 cm x 2.6 cm x 1.5 cm cyst with thin septations within the ovary. Normal arterial and venous blood flow demonstrated to the ovary. Left adnexa: Ovary: The ovary measures 3.5 cm x 2.9 cm x 1.8 cm. 2.7 cm x 2.3 cm x 1.5 cm simple cyst within the ovary. Normal arterial and venous blood flow demonstrated to the ovary. Free fluid: No significant free fluid. Procedure Note Ajit Paz MD - 06/24/2022 US PELVIS TRANSABDOMINAL PLUS TRANSVAGINAL HISTORY: Pain, change in bowel habits, rectal bleeding. Reportedly,patient hasn't menstruated in months. TECHNIQUE: Pelvic Ultrasound Transabdominal performed for global imagingof the pelvis. Pelvic Ultrasound Transvaginal performed for detailedimaging of the endometrium and/or adnexa. COMPARISON: CT pelvis 01/15/2018. FINDINGS: Uterus: Size: 7.9 cm x 5.0 cm x 4.4 cm cm. Orientation: Anteverted. Myometrium: No masses visualized. Endometrium: The endometrial stripe measures 11 mm in thickness. Right adnexa: Ovary: The ovary measures 3.4 cm x 3.0 cm x 2.1 cm. There is a 2.8 cm x 2.6 cm x1.5 cm cyst with thin septations within the ovary. Normal arterial andvenous blood flow demonstrated to the ovary. Left adnexa: Ovary: The ovary measures 3.5 cm x 2.9 cm x 1.8 cm. 2.7 cm x 2.3 cm x 1.5 cmsimple cyst within the ovary. Normal arterial and venous blood flowdemonstrated to the ovary. Free fluid: No significant free fluid. IMPRESSION: 1. Endometrial stripe measures 11 mm in thickness. Assuming the patientis premenopausal this is within normal limits. Clinical follow-uprecommended. No other uterine abnormalities. 2. Probable small functional cyst or large follicle within each ovary.Ovaries otherwise appear normal. us Lashawn Parry PA-C IMG US PELVIS Final Result documented in this encounter Visit Diagnoses Diagnosis Change in bowel habits- Primary Other symptoms involving digestive system Rectal bleeding Hemorrhage of rectum and anus Change in bowel habits Other symptoms involving digestive system Rectal bleeding Hemorrhage of rectum and anus documented in this encounter Additional Health Concerns Infection Onset Date Last Indicated Resolved Time CoV-Risk 05/13/2024 05/13/2024 05/24/2024 1:24 AM EST CoV-Risk 08/19/2024 08/19/2024 08/30/2024 1:23 AM EDT documented as of this encounter Care Teams Hotel Or Motel Room Service Supervisor Relationship Specialty Start Date End Date Shantel Sands PA [address] [place] [address] PCP - General Employee Services Manager 03/29/20 10/29/23 Kay Overton MD [address] [place] [phone] [email or web address] PCP - General Family Medicine 10/30/23 Marito Vizcarra MD [address] [place] [address] Historical LMR Provider 03/04/17 Maxine Davis MD [address] [place] [address] Historical LMR Provider 03/04/17 Cornelia Hoang DO [address] [place] [address] Referring Physician Anesthesiology 09/18/20 Cassidy Gibson MD [address] [place] [address] [place] [address] [email or web address] Insurance Assigned Provider 10/26/21 01/24/23 Rachele Marti, MOISES [address] [place] [address] [employer] Computer Support Specialist Instructor 10/13/23 11/10/23 documented as of this encounter Additional Source Comments The information contained in this document represents components of the legal health record. It is not the complete legal health record.[facility]
--- OUTSIDE RECORDS SUMMARY | 2025-01-24 10:07 | XMS_ITS | Encounter Summary ---
Author Organization [facility] Address [address] [place] [address] [place] [address] Phone Care Team Providers Care Fashion Journalist Name Role Phone Marito Vizcarra MD Unavailable Maxine Davis MD Unavailable Kay Overton MD Unavailable Shantel Sands Primary Care Provider [phone] Cornelia Hoang DO Unavailable [phone] Cassidy Gibson MD Unavailable Rachele Marti RN Unavailable Kay Overton MD Primary Care Provider Encounter Details Date Type Department Care Team (Latest Contact Info) Description 09/09/2021 Transcribe Orders Virtual Department [address] [place] [address] Shantel Sands PA [address] [place] [phone] Breast screening (Primary Dx) Social History Tobacco Use Types [...] MAMMOGRAM SCREENING WITH TOMOSYNTHESIS WITH CAD (BILATERAL) (11/28/2021 2:58 PM EDT) Anatomical Region Laterality Modality Breast Left, Breast Right, Breast Bilateral Bila teral Mammography 11/29/2021 10:1 6 AM EDT Impressions 11/29/2021 10:18 AM EDT BILATERAL BREASTS: Negative, no specific mammographic evidence of malignancy. Normal interval follow-up is recommended in 12 months. BI-RADS: BI-RADS CATEGORY: 1 - Negative. DENSITY: There are scattered fibroglandular densities. Narrative 11/29/2021 10:18 AM EDT STUDY: Bilateral screening mammography with tomosynthesis and CAD TECHNIQUE: Bilateral full-field digital screening mammography is obtained and read in conjunction with computer-aided detection. Tomosynthesis as well as 2-D C view imaging were obtained. COMPARISON: Comparison made to multiple prior, most recent November 26, 2020, and most remote May 06, 2012. BREAST COMPOSITION: There are scattered areas of fibroglandular density BILATERAL BREASTS: No significant masses, suspicious calcifications or other abnormalities are seen in either breast. Procedure Note America Box MD - 11/29/2021 STUDY: Bilateral screening mammography with tomosynthesis and CAD TECHNIQUE: Bilateral full-field digital screening mammography is obtainedand read in conjunction with computer-aided detection. Tomosynthesis aswell as 2-D C view imaging were obtained. COMPARISON: Comparison made to multiple prior, most recent November 26, 2020,and most remote May 06, 2012. BREAST COMPOSITION: There are scattered areas of fibroglandulardensity BILATERAL BREASTS: No significant masses, suspicious calcifications orother abnormalities are seen in either breast. IMPRESSION: BILATERAL BREASTS: Negative, no specific mammographic evidence ofmalignancy. Normal interval follow-up is recommended in 12 months. BI-RADS: BI-RADS CATEGORY: 1 - Negative. DENSITY: There are scattered fibroglandular densities. Shantel STROUD IMG MG EXAMS Final Resu lt documented in this encounter Visit Diagnoses Diagnosis Breast screening- Primary Breast screening, unspecified Breast screening Breast screening, unspecified documented in this encounter Additional Health Concerns Infection Onset Date Last Indicated Resolved Time CoV-Risk 05/13/2024 05/13/2024 05/24/2024 1:24 AM EST CoV-Risk 08/19/2024 08/19/2024 08/30/2024 1:23 AM EDT documented as of this encounter Care Teams Fashion Journalist Relationship Specialty Start Date End Date Shantel Sands PA [address] [place] [address] PCP - General Pull Tab Dealer 03/29/20 10/29/23 Kay Overton MD [address] [place] [phone] [email or web address] PCP - General Family Medicine 10/30/23 Marito Vizcarra MD [address] [place] [address] Historical LMR Provider 03/04/17 Maxine Davis MD [address] [place] [address] Historical LMR Provider 03/04/17 Kay Overton MD [address] [place] [address] Insurance Assigned Provider 04/23/19 10/26/21 Cornelia Hoang DO 1 [facility] [address] [place] [address] Referring Physician Anesthesiology 09/18/20 Cassidy Gibson MD [address] [place] [address] [email or web address] Insurance Assigned Provider 10/26/21 01/24/23 Rachele Marti RN [address] [place] [address] [email or web address] [employer] Management Analyst 10/13/23 11/10/23 documented as of this encounter Additional Source Comments The information contained in this document represents components of the legal health record. It is not the complete legal health record.[facility]
--- OUTSIDE RECORDS SUMMARY | 2025-01-24 10:07 | XMS_ITS | Encounter Summary ---
Author Organization [facility] Address [address] [place] [address] Phone Care Team Providers Care Mobile Architect Name Role Phone Kay Overton MD Primary Care Provider [phone] Kay Overton MD Unavailable [phone] Marito Vizcarra MD Unavailable Bibi Sierra MD Unavailable [phone] Lashawn Butterfield NP Unavailable [phone] Justin Leblanc MD Unavailable [phone] Maxine Davis MD Unavailable Panfilo Gates MD Unavailable [phone] Mojgan Wang MD Unavailable [phone] Kay Overton MD Unavailable [phone] Shantel Sands Primary Care Provider [phone] Cornelia Hoang DO Unavailable [phone] Cassidy Gibson MD Unavailable [phone] Rachele Marti RN Unavailable Kay Overton MD Primary Care Provider [phone] Encounter Details Date Type Department Care Team (Late st Contact Info) Description 09/13/2018 Transcribe Orders [address] [place] [address] Orestes Sarmiento NP [address] [place] [address] Moderate mixed bipolar I disorder (Primary Dx) Social History Tobacco Use Types [...] documented as of this encounter Results * [place] level (09/13/2018 7:26 AM EDT) LITHIUM 0.89 0.50 - 1.00 mmol/L [facility] Blood 09/13/2018 7:26 AM EDT 09/13/2018 7:33 AM EDT us Christopher S Footit LASTING ROOM SUPERVISOR LAB BLOOD ORDERABLES Fin al Result Performing Organization Address [facility] Co de Phone Number [address] [address] * Folate (09/13/2018 7:26 AM EDT) FOLIC ACID 13.5 4.2 - 19.9 ng/mL [facility] Blood 09/13/2018 7:26 AM EDT 09/13/2018 7:33 AM EDT [facility] SUPERVISOR LAB BLOOD ORDERABLES Fin al Result Performing Organization Address [facility] Co de Phone Number [address] [address] * CBC and differential (09/13/2018 7:26 AM EDT) WBC 5.95 3.40 - 11.20 K/uL [facility] RBC 4.20 3.80 - 4.80 M/uL [facility] HGB 12.5 12.0 - 15.0 g/dL [facility] HCT 39.6 36.0 - 46.0 % [facility] PLT 221 130 - 400 K/uL [facility] MCV 94.3 79.0 - 98.0 fL [facility] MCH 29.8 27.0 - 34.8 pg [facility] MCHC 31.6 31.5 - 36.0 g/dL [facility] RDW 12.1 10.8 - 14.6 % [facility] MPV 11.3 9.4 - 12.4 fl [facility] NRBC 0.00 0.00 /100 WBCs [facility] ABSOLUTE NRBC 0.00 0.00 K/uL [facility] DIFF METHOD Auto [facility] NEUTS 63.2 45.30 - 77.70 % [facility] LYMPHS 26.9 12.30 - 39.70 % [facility] MONOS 5.7 4.10 - 12.80 % [facility] EOS 3.2 0 - 7.2 % [facility] BASOS 0.8 0 - 2.80 % [facility] Granulocytes, immature (%) 0.2 0.0 - 0.9 % [facility] ABSOLUTE NEUTS 3.76 1.40 - 7.70 K/uL [facility] ABSOLUTE LYMPHS 1.60 0.60 - 3.20 K/uL [facility] ABSOLUTE MONOS 0.34 0.11 - 0.59 K/uL [facility] ABSOLUTE EOS 0.19 0.01 - 0.50 K/uL [facility] ABSOLUTE BASOS 0.05 0.00 - 0.08 K/uL [facility] Granulocytes, immature 0.01 0.00 - 0.05 K/uL [facility] Blood 09/13/2018 7:26 AM EDT 09/13/2018 7:33 AM EDT us Orestes Sarmiento LASTING ROOM SUPERVISOR LAB BLOOD ORDERABLES Fin al Result [address] [address] * (ABNORMAL) TSH with reflex (09/13/2018 7:26 AM EDT) TSH 7.92(H) 0.27 - 4.20 uIU/mL [facility] Blood 09/13/2018 7:26 AM EDT 09/13/2018 7:33 AM EDT Christopher S Footit LASTING ROOM SUPERVISOR LAB BLOOD ORDERABLES Fin al Result Performing Organization Address [facility] Co de Phone Number [address] [address] * Renal panel (09/13/2018 7:26 AM EDT) SODIUM 139 133 - 146 mmol/L [facility] POTASSIUM 4.7 3.3 - 5.1 mmol/L [facility] CHLORIDE 104 96 - 108 mmol/L [facility] CO2 26 21 - 35 mmol/L [facility] GLUCOSE 88 70 - 99 mg/dL [facility] BUN 10 6 - 19 mg/dL [facility] CREATININE 0.90 0.5 - 1.5 mg/dL [facility] CALCIUM 8.9 8.4 - 10.3 mg/dL [facility] PHOSPHORUS 3.4 2.7 - 4.5 mg/dL [facility] ALBUMIN 4.2 3.9 - 4.8 g/dL [facility] EGFR 79 >59 mL/min/1.7 3m2 [facility] Comment:If patient is black, multiply result by 1.159. Estimated glomerular filtration rate calculated using the CKD-EPI equation. ANION GAP 14 10 - 20 mmol/L [facility] Blood 09/13/2018 7:26 AM EDT 09/13/2018 7:33 AM EDT Christopher S Footit LASTING ROOM SUPERVISOR LAB BLOOD ORDERABLES Fin al Result Performing Organization Address [facility] Co de Phone Number [address] [address] documented in this encounter Visit Diagnoses Diagnosis Moderate mixed bipolar I disorder- Primary Bipolar I disorder, most recent episode (or current) mixed, moderate documented in this encounter Additional Health Concerns Infection Onset Date Last Indicated Resolved Time CoV-Risk 05/13/2024 05/13/2024 05/24/2024 1:24 AM EST CoV-Risk 08/19/2024 08/19/2024 08/30/2024 1:2 3 AM EDT documented as of this encounter Care Teams Mobile Architect Relationship Specialty Start Date End Date Kay Overton MD PCP - General 03/03/17 03/28/20 Shantel Sands PA [address] [place] [phone] PCP - General Director Industrial Relations 03/29/20 10/29/23 Kay Overton MD [address] [place] [phone] [email or web address] PCP - General Family Medicine 10/30/23 Kay Overton MD [address] [place] [address] [email or web address] Historical LMR Provider 03/04/17 Marito Levin MD [address] [place] [address], [facility] [address] [place] [address] Historical LMR Provider 03/04/17 Bibi Sierra MD [address] [place] [address] Historical LMR Provider 03/04/17 Lashawn Butterfield, LASTING ROOM SUPERVISOR [address] [place] [address] Historical LMR Provider 03/04/17 2 Justin Leblanc MD [address] [place] [address], [address] [place] [address] Historical LMR Provider 03/04/17 05/25/21 Maxine Davis MD [address] [place] [address], [address] [address] Historical LMR Provider 03/04/17 Panfilo Gates MD [address] [place] [address] Historical LMR Provider 03/04/17 05/25/21 Mojgan Wang MD [address] [place] [address] Historical LMR Provider 03/04/17 05/25/21 Kay Overton MD [address] [place] [address] Insurance Assigned Provider 04/23/19 10/26/21 Cornelia Hoang DO [address] [place] [address] Referring Physician Anesthesiology 09/18/20 Cassidy Gibson MD [address] [place] [address] [place] [address] [email or web address] Insurance Assigned Provider 10/26/21 01/24/23 Rachele Marti RN [address] [place] [address] [email or web address] i[employer] Verify Rep 10/13/23 11/10/23 documented as of this encounter Additional Source Comments The information contained in this document represents components of the legal health record. It is not the complete legal health record.[facility]
--- OUTSIDE RECORDS SUMMARY | 2025-01-24 10:07 | XMS_ITS | Encounter Summary ---
Author Organization [facility] Address [address] [place] [address] Phone Care Team Providers Care Staff Nurse Anesthetist Name Role Phone Kay Overton MD Primary Care Provider [phone] Kay Overton MD Unavailable [phone] Marito Vizcarra MD Unavailable Bibi Sierra MD Unavailable [phone] Lashawn Butterfield NP Unavailable [phone] Justin Leblanc MD Unavailable [phone] Maxine Davis MD Unavailable Panfilo Gates MD Unavailable [phone] Mojgan Wang MD Unavailable [phone] Kay Overton MD Unavailable [phone] Kay Overton MD Unavailable [phone] Shantel Sands Primary Care Provider [phone] Cornelia Hoang DO Unavailable [phone] Cassidy Gibson MD Unavailable [phone] Rachele Marti RN Unavailable Kay Overton MD Primary Care Provider [phone] Encounter Details Date Type Department Care Team (Late st Contact Info) Description 01/15/2018 Procedure Pass [place] Admitting Dept - Virtual Department [address] [place] [address] Social History Tobacco Use Types Packs/Day Years [...] documented as of this encounter Care Teams Staff Nurse Anesthetist Relationship Specialty Start Date End Date Kay Overton MD [email or web address] PCP - General 03/03/17 03/28/20 Shantel Sands PA [address] [place] [address] PCP - General Manager Express 03/29/20 10/29/23 Kay Overton MD [address] [place] [phone] [email or web address] PCP - General Family Medicine 10/30/23 Kay Overton MD [address] [place] [address] [email or web address] Historical LMR Provider 03/04/17 2 Marito Vizcarra MD [address] [place] [address] Historical LMR Provider 03/04/17 Bibi Sierra MD [address] [place] [address] Historical LMR Provider 03/04/17 Lashawn Butterfield, HOUSE CLEANER SUPERVISOR [address] [place] [address] Historical LMR Provider 03/04/17 2 Justin Leblanc MD [address] [place] [address], [address] [place] [address] Historical LMR Provider 03/04/17 05/25/21 Maxine Davis MD [address] [place] [address] Historical LMR Provider 03/04/17 Panfilo Gates MD [address] [place] [address] Historical LMR Provider 03/04/17 05/25/21 Mojgan Wang MD [address] [place] [address] Historical LMR Provider 03/04/17 05/25/21 Kay Overton MD [address] [place] [address] [email or web address] Insurance Assigned Provider 09/19/17 06/19/18 Kay Overton MD [address] [place] [address] Insurance Assigned Provider 04/23/19 10/26/21 Cornelia Hoang DO [address] [address] Referring Physician Anesthesiology 09/18/20 Cassidy Gibson MD [address] [place] [address] [place] [address] [email or web address] Insurance Assigned Provider 10/26/21 01/24/23 Rachele Marti, RN [address] [place] [address] [email or web address] iC[employer] As400 Programmer Analyst 10/13/23 11/10/23 documented as of this encounter Additional Source Comments The information contained in this document represents components of the legal health record. It is not the complete legal health record.[facility]
--- OUTSIDE RECORDS SUMMARY | 2025-01-24 10:07 | XMS_ITS | Clinical Summary ---
Author Organization [facility] Address [address] [place] [address] [place] [id number] Phone Care Team Providers Care Warper Creeler Name Role Phone Marito Vizcarra MD Unavailable Maxine Davis MD Unavailable Cornelia Hoang DO Unavailable [phone] aKy Overton MD Primary Care Provider Allergies No known active allergies Medications lamoTRIgine (LAMICTAL) 25 MG IMMEDIATE release tablet Take 50 mg by mouth daily. 3 Active cariprazine (VRAYLAR) 3 mg capsule Take 3 mg by mouth daily. Active pregabalin (LYRICA) 150 MG capsule Take 225 mg by mouth nightly at bedtime. Active QUEtiapine (SEROQUEL XR) 50 mg Tb24 Take 50 mg by mouth daily. Active tiZANidine (ZANAFLEX) 4 MG tablet Take 4 mg by mouth every 12 (twelve) hours. Active ubrogepant (UBRELVY) 50 mg tablet Take 50 mg by mouth once. Active melatonin 5 mg Tab Take 1 tablet by mouth every morning. 5 Active DAILY-ADRIANNA, WITH FOLIC ACID, 400 mcg tablet Take 1 tablet by mouth every morning. 5 Active lurasidone (LATUDA) 40 mg Tab Take 40 mg by mouth daily. 12/28/19 25 Discontinu ed(No longer taking) lithium carbonate 300 mg tablet Take 300 mg by mouth 3 (three) times a day. 3 12/29/19 25 Discontinu ed(Stop Taking at Discharge) UBRELVY 50 mg tablet daily as needed. 3 12/28/19 Discontinu ed(No longer taking) naltrexone (NALTREX) 4.5 mg Cap Take by mouth. 12/28/19 Discontinu ed(No longer taking) metroNIDAZOLE (FLAGYL) 500 MG tablet Take 1 tablet (500 mg total) by mouth 2 (two) times a day. 14 tablet 3 12/28/19 Discontinu ed(No longer taking) atovaquone-prog uanil (MALARONE) 250-100 mg Tab TAKE 1 TAB BY MOUTH DAILY W/FOOD-START 2 DAYS BEFORE ARRIVAL TO [facility], CONTINUE UNTIL GONE. 4 12/28/19 Discontinu ed(No CancelRX) phenazopyridine (PYRIDIUM) 200 MG tablet Take 1 tablet (200 mg total) by mouth 3 (three) times a day as needed for pain (specific location in comments). 10 tablet 4 12/28/19 Discontinu ed(No longer taking) clonazePAM (KLONOPIN) 0.5 MG tablet Take 0.5 mg by mouth daily as needed for anxiety. 12/28/19 Discontinu ed(No longer taking) Active Problems Problem Noted Date Diagnosed Date Ingestion of toxic substance 12/27/2024 Manic behavior 01/09/2024 On SSRI therapy 12/07/2017 Trochanteric bursitis of both hips 09/25/2017 Chronic pain of both knees 07/22/2017 Pain of both hip joints 07/22/2017 Vitamin D insufficiency 07/22/2017 Raynaud's disease without gangrene 07/22/2017 Chronic fatigue 07/22/2017 Fibromyalgia 07/22/2017 Lumbosacral spondylosis without myelopathy 06/11 Yeast infection 05/14/2017 Vaginal discomfort 05/14/2017 Spondylosis of lumbar region without myelopathy or radiculopathy 04/29/2017 Resolved Problems Problem Noted Date Diagnosed Date Resolved Date Appendicitis, acute 01/15/2018 01/17/20 18 Encounters Date Type Department Care Team Description 12/27/2024 1:08 PM EDT - 12/28/2024 4:27 PM EDT Hospital Encounter [facility] [address] [place] [address] Gustabo Sam MD, Whitney Iqbal MD [facility]charge [facility]position[facility] 3 Months Family History Medical History Relation Comments Stroke Father Breast cancer Maternal Aunt CV disease Mother Relation Status Comments Father Alive Maternal Aunt Mother Social History Tobacco Use Types Packs/Day Years Used Date Smoking Tobacco: Some Days Cigarettes 0.3 5.7 Started: 05/11/2013; Last attempted to quit: 05/11/2017 Smokeless Tobacco: Never Alcohol Use Standard Drinks/Week Comments No 0 (1 standard drink = 0.6 oz pur e alcohol) Education Answer Date Recorded Are you interested in more education? Not on christiano e 09/12/2022 Are you concerned about learning? Not on file 09/12/2022 No 09/12/2022 No 09/12/2022 Food Answer Date Recorded Within the past 6 months we worried whether our food would run out before we got money to buy more. Never True 12/27/2024 Within the past 6 months the food we bought just didn't last and we didn't have enough money to get more. Never True Residential Stability Answer Date Recor ded What is your housing situation today? I have kary sing 12/27/2024 How many times have you move d in the past 12 months? Zero (I did not move) 12/27/2024 Paying for Meds Answer Date Recorded Do you have trouble paying for medicines? No 12/27/2024 Paying Utility Bills Answer Date Record ed Do you have trouble paying your heating or elect ricity bill? No 12/27/2024 Transportation Answer Date Recorded Has the lack of transportati on kept you from medical appointments or from getting medications? No 12/27/2024 Digital Access Answer Date Recorded No 12/27/2024 Yes 12/27/2024 Do you have reliable internet access at home? Ye s 12/27/2024 Do you have a device (e.g., phone, tablet, computer) with a working camera? Yes 12/27/2024 Intimate Partner Violence Answer Date R ecorded Are you denied basic needs s uch as food, clothing, or medical care? No 12/27/2024 In the past 12 months have y ou been in a relationship with a person who hurts, threatens, or tries to control you? No 12/27/2024 Are you denied basic needs s uch as food, clothing, or medical care? No 12/27/2024 In the past 12 months have y ou been in a relationship with a person who hurts, threatens, or tries to control you? No 12/27/2024 Comments No Sex and Gender Information Value Date Recorded Sex Assigned at Female 05/25/2017 9:38 AM EST Legal Sex Female 9:26 PM EDT Gender Identity Female 05/25/2017 9:38 AM EST Sexual Orientation Straight 05/25/2017 9: 38 AM EST Last Filed Vital Signs Vital Sign Reading Time Taken Comments Blood Pressure 132/82 12/28/2024 3:40 PM EDT Pulse 110 12/28/2024 8:47 AM EDT Temperature 36.4 C (97.5 F) 12/28/2024 3:40 PM EDT Respiratory Rate 20 12/28/2024 3:40 PM EDT Oxygen Saturation 100% 12/28/2024 3:40 PM EDT Inhaled Oxygen Concentration 20.9% 06/24/2022 9 :49 AM EST Weight 72.1 kg (159 lb) 12/28/2024 2:30 AM EDT Height 170.2 cm (5' 7 ) 12/27/2024 1:25 PM EDT Body Mass Index 24.9 12/27/2024 1:25 PM EDT Plan of Treatment Health Maintenance Due Date Last Done Comments DEPRESSION SCREENING 1989 HIV ONE-TIME SCREENING (18-65 YEARS) 1995 PNEUMOCOCCAL VACCINES (0-49 years) (1 of 2 - PCV) 1996 COLOGUARD 2022 COLONOSCOPY 2022 FIT TEST 2022 FOBT 2022 VIRTUAL COLONOSCOPY 2022 INFLUENZA VACCINE (#1) 2024 2, 04/25/2019, 04/05/2018, Additional history exists COVID-19 VACCINE (2024- season) 2025 06/04/2021, 10/25/2020, 10/04/2020 MAMMOGRAM 01/29/2025 01/29/2023, 11/15, 11/26/2020, Additional history exists PAP SMEAR 02/06/2025 02/06/2022 SMOKING Hx and SMOKELESS TOBACCO SCREENING 09/27/2025 09/27/2024 COLORECTAL CANCER SCREENING 06/24/2027 SIGMOIDOSCOPY 06/24/2027 06/24/2022 LIPID PANEL 12/31/2027 12/30/2022, 12/16, 06/02/2018 Adult Td,Tdap Booster 01/12/2030 01/13/2020, 010 HEPATITIS C SCREENING Completed 09/19/2022 HEPATITIS A VACCINES Aged Out 09/29/2023 No long er eligible based on patient's age to complete this topic MENINGOCOCCAL VACCINES (ACWY) Aged Out 09/29/2023 No longer eligible based on patient's age to complete this topic HIB VACCINES Aged Out No longer eligi ble based on patient's age to complete this topic MENINGOCOCCAL VACCINES (B) Aged Out N o longer eligible based on patient's age to complete this topic Medical Devices Not on file Procedures Procedure Name Priority Date/Time Associated Diagnosis Comments ECG 12-LEAD Routine 12/28/2024 4:41 AM EDT CBC AND DIFFERENTIAL Routine 12/28/2024 3:55 AM EDT PROCALCITONIN Routine 12/28/2024 3:55 AM EDT PHOSPHORUS Timed 12/28/2024 3:55 AM EDT MAGNESIUM Timed 12/28/2024 3:55 AM EDT BASIC METABOLIC PANEL Timed 12/28/2024 3:55 AM EDT LITHIUM LEVEL Timed 12/28/2024 3:55 AM EDT PHOSPHORUS Routine 12/28/2024 12:48 AM EDT MAGNESIUM Routine 12/28/2024 12:48 AM EDT BASIC METABOLIC PANEL Routine 12/28/2024 12:48 AM EDT LITHIUM LEVEL STAT 12/27/2024 11:53 PM EDT ECG 12-LEAD Routine 12/27/2024 11:45 PM EDT PHOSPHORUS Timed 12/27/2024 8:18 PM EDT MAGNESIUM Timed 12/27/2024 8:18 PM EDT BASIC METABOLIC PANEL Timed 12/27/2024 8:18 PM EDT LITHIUM LEVEL STAT 12/27/2024 8:18 PM EDT ECG 12-LEAD Routine 12/27/2024 8:10 PM EDT ECG 12-LEAD Routine 12/27/2024 6:15 PM EDT PHOSPHORUS Timed 12/27/2024 6:02 PM EDT MAGNESIUM Timed 12/27/2024 6:02 PM EDT BASIC METABOLIC PANEL Timed 12/27/2024 6:02 PM EDT LITHIUM LEVEL STAT 12/27/2024 5:37 PM EDT MRSA PCR SCREEN Routine 12/27/2024 5:37 PM EDT LITHIUM LEVEL STAT 12/27/2024 4:30 PM EDT ECG 12-LEAD Routine 12/27/2024 4:14 PM EDT TOXICOLOGY SCREEN, URINE STAT 12/27/2024 3:42 PM EDT URINALYSIS W/REFLEX URINE CULTURE STAT 12/27/2024 3:42 PM EDT ECG 12-LEAD STAT 12/27/2024 3:11 PM EDT XR CHEST PORTABLE Routine 12/27/2024 3:0 9 PM EDT LITHIUM LEVEL STAT 12/27/2024 2:15 PM EDT SALICYLATES STAT 12/27/2024 2:15 PM EDT ACETAMINOPHEN LEVEL STAT 12/27/2024 2 :15 PM EDT ETHANOL, BLOOD STAT 12/27/2024 2:15 PM EDT TROPONIN STAT 12/27/2024 2:15 PM EDT LACTIC ACID (LACTATE) STAT 12/27/2024 2:15 PM EDT PT-INR STAT 12/27/2024 2:15 PM EDT LIPASE STAT 12/27/2024 2:15 PM EDT PHOSPHORUS STAT 12/27/2024 2:15 PM EDT MAGNESIUM STAT 12/27/2024 2:15 PM EDT LFTS (HEPATIC PANEL) STAT 12/27/2024 2:15 PM EDT CBC AND DIFFERENTIAL STAT 12/27/2024 2:15 PM EDT BASIC METABOLIC PANEL STAT 12/27/2024 2:15 PM EDT ECG 12-LEAD STAT 12/27/2024 1:24 PM EDT BI MAMMOGRAM SCREENING WITH TOMOSYNTHESIS WITH CAD (BILATERAL) Routine 01/29/2023 10:13 AM EDT Breast cancer screening by mammogram LIPID PANEL Routine 12/30/2022 10:41 AM EDT Moderate mixed bipolar I disorder ENDOSCOPY, SIGMOID 06/24/2022 9: 31 AM EST PAP TEST Routine 02/06/2022 12:00 AM EDT from Last 3 Months or Most Recently Relevant to Health Maintenance Results * ECG 12-LEAD (12/28/2024 4:41 AM EDT) Only the most recent of7 resultswithin the time period is included. Ventricular Rate EKG/MIN 102 BPM [facility] Atrial Rate 102 BPM [facility] UT Interval 136 ms [facility] QRS Duration 96 ms [facility] QT Interval 344 ms [facility] QTC Interval 448 ms [facility] P [place] 76 degrees [facility] R Wave [place] 61 degrees [facility] T Wave [place] 52 degrees [facility] 12/28/2024 4:41 AM EDT 12/28/2024 6:10 PM EDT Narrative [facility] - 12/28/2024 6:10 PM EDT Sinus tachycardia Nonspecific ST abnormality Abnormal ECG When compared with ECG of 27-Dec-2024 23:45, No significant change was found Confirmed by Aj HAMILTON ([id number]) on 12/28/2024 6:10:51 PM us Phuc Devine Ananth PA-C ECG ORDERABLES Final Resu lt [facility] * Procalcitonin (12/28/2024 3:55 AM EDT) Procalcitonin 0.04 0.00 - 0.25 ng/mL [facility] Comment: <=0.25 ng/mL: Bacterial pneumonia is unlikely. <0.5 ng/mL: Low likelihood of systemic bacterial infection / sepsis. Localized infection is possible. 0.5-2.0 ng/mL: Systemic bacterial infection / sepsis is possible, but other conditions can induce PCT levels in this range as well (e.g., pancreatitis,severe trauma, circulatory shock, surgery, [place], inhalation injury.) >2.0 ng/mL: Systemic bacterial infection / sepsis is likely. Additional information can be found in the [employer] Procalcitonin Guidelines, available at http://handbook.mgb.org/3817/Content/4-138-251 Blood 12/28/2024 3:55 AM EDT 12/28/2024 4:46 AM EDT us Justin Argueta [facility] LAB BLOOD ORDERABLES Belen varun Result [address] [address] * (ABNORMAL) CBC and differential (12/28/2024 3:55 AM EDT) Only the most recent of2 resultswithin the time period is included. WBC 7.93 4.00 - 11.00 K/uL [facility] RBC 3.84(L) 4.00 - 5.20 M/uL [facility] HGB 11.2(L) 12.0 - 16.0 g/dL [facility] HCT 35.5(L) 36.0 - 46.0 % [facility] PLT 186 150 - 450 K/uL [facility] MCV 92.4 80.0 - 100.0 fL [facility] MCH 29.2 27.0 - 31.0 pg [facility] MCHC 31.5(L) 32.0 - 36.0 g/dL [facility] RDW 14.4 11.5 - 14.5 % [facility] MPV 10.7 8.4 - 12.0 fL [facility] NRBC 0.00 0.00 /100 WBCs [facility] ABSOLUTE NRBC 0.00 0.00 K/uL [facility] DIFF METHOD Auto [facility] NEUTS 68.4 48.0 - 76.0 % [facility] LYMPHS 23.8 18.0 - 41.0 % [facility] MONOS 5.7 4.0 - 11.0 % [facility] EOS 1.3 0.0 - 5.0 % [facility] BASOS 0.5 0.0 - 1.5 % [facility] Granulocytes, immature (%) 0.3 0.0 - 0.9 % [facility] ABSOLUTE NEUTS 5.43 1.92 - 7.60 K/uL [facility] ABSOLUTE LYMPHS 1.89 0.72 - 4.10 K/uL [facility] ABSOLUTE MONOS 0.45 0.16 - 1.10 K/uL [facility] ABSOLUTE EOS 0.10 0.00 - 0.50 K/uL [facility] ABSOLUTE BASOS 0.04 0.00 - 0.15 K/uL [facility] Granulocytes, immature 0.02 0.00 - 0.09 K/uL [facility] Blood 12/28/2024 3:55 AM EDT 12/28/2024 4:46 AM EDT Justin Argueta [facility] LAB BLOOD ORDERABLES Belen l Result Performing Organization Address City/[facility] Co de Phone Number [address] [address] * (ABNORMAL) Phosphorus (12/28/2024 3:55 AM EDT) Only the most recent of5 resultswithin the time period is included. PHOSPHORUS 2.5(L) 2.7 - 4.5 mg/dL [facility] Blood 12/28/2024 3:55 AM EDT 12/28/2024 4:46 AM EDT Justin Argueta [facility] LAB BLOOD ORDERABLES Belen l Result [address] [address] * Magnesium (12/28/2024 3:55 AM EDT) Only the most recent of5 resultswithin the time period is included. MAGNESIUM 1.9 1.6 - 2.6 mg/dL [facility] Blood 12/28/2024 3:55 AM EDT 12/28/2024 4:46 AM EDT Justin Argueta CNP LAB BLOOD ORDERABLES Belen l Result Performing Organization Address City/[facility]/ZIP Co de Phone Number [address] [address] * [place] level (12/28/2024 3:55 AM EDT) Only the most recent of6 resultswithin the time period is included. LITHIUM 0.66 0.5 - 1.00 mmol/L [facility] Blood 12/28/2024 3:55 AM EDT 12/28/2024 4:46 AM EDT Justin Agrueta [facility] LAB BLOOD ORDERABLES Belen l Result Performing Organization Address [facility] de Phone Number [address] [address] * (ABNORMAL) Basic metabolic panel (12/28/2024 3:55 AM EDT) Only the most recent of5 resultswithin the time period is included. SODIUM 146 133 - 146 mmol/L [facility] CHLORIDE 116(H) 96 - 108 mmol/L [facility] POTASSIUM 3.3 3.3 - 5.1 mmol/L [facility] CO2 25 21 - 35 mmol/L [facility] BUN 4(L) 6 - 19 mg/dL [facility] CREATININE 0.80 0.5 - 1.5 mg/dL [facility] GLUCOSE 75 70 - 99 mg/dL [facility] CALCIUM 8.4 8.4 - 10.3 mg/dL [facility] EGFR 91 >59 mL/min/1.7 3m2 [facility] Comment:Estimated glomerular filtration rate calculated using the CKD-EPI refit equation. ANION GAP 8(L) 10 - 20 mmol/L [facility] Blood 12/28/2024 3:55 AM EDT 12/28/2024 4:46 AM EDT Justin Argueta CNP LAB BLOOD ORDERABLES Belen l Result Performing Organization Address City/[facility]/ZIP Co de Phone Number [address] [address] * MRSA PCR SCREEN (12/27/2024 5:37 PM EDT) MRSA PCR SCREEN Negative Negative [facility] Comment:The Xpert MRSA Assay is intended to aid in the prevention and control of MRSA infections in healthcare settings. The assay is not intended to diagnose nor to guide or monitor treatment for MRSA infections. Other (Nasal) 12/27/2024 5:3 7 PM EDT 12/27/2024 6:28 PM EDT us Justin Argueta [facility] NON CULTURE MICROBIOLOGY Final Result Performing Organization Address [facility] Co de Phone Number [address] [address] * Urinalysis w/reflex Urine Culture (12/27/2024 3:42 PM EDT) Pathologist [facility] COLOR Yellow Yellow [facility] CLARITY Clear [facility] GLUCOSE Negative Negative [facility] BILI Negative Negative [facility] KETONES Negative Negative [facility] SPECIFIC GRAVITY <1.005 1.005 - 1.030 [facility] BLOOD Negative Negative [facility] PH 6.5 5.0 - 8.0 [facility] Protein-UA Negative Negative [facility] NITRITE Negative Negative [facility] Leukocyte esterase, ur Negative Negative [facility] Urine (Urine) 12/27/2024 3:4 2 PM EDT 12/27/2024 4:02 PM EDT us Gustabo Sam MD, YEYO URINE ORDERABLES Final Result Performing Organization Address City/[facility]/ZIP Co de Phone Number [address] [address] * Toxicology screen, urine (12/27/2024 3:42 PM EDT) Pathologist [facility] URINE CANNABINOIDS NONE DETECTED NONE DETECTED [facility] Comment:Cutoff: 50 ng/mL URINE COCAINE METAB NONE DETECTED NONE DETECTED [facility] Comment:Cutoff: 300 ng/mL URINE AMPHETAMINES NONE DETECTED NONE DETECTED [facility] Comment:Cutoff: 1000 ng/mL URINE METHADONE NONE DETECTED NONE DETECTED [facility] Comment:Cutoff: 300 ng/mL URINE OPIATES NONE DETECTED NONE DETECTED [facility] Comment:Cutoff: 300 ng/mL URINE PHENCYCLIDINE NONE DETECTED NONE DETECTED [facility] Comment:Cutoff: 25 ng/mL URINE OXYCODONE NONE DETECTED NONE DETECTED [facility] Comment:Cutoff: 300 ng/mL URINE BARBITURATES NONE DETECTED NONE DETECTED [facility] Comment:Cutoff: 200 ng/mL URINE BENZODIAZEPINE NONE DETECTED NONE DETECTED [facility] Comment:Cutoff: 200 ng/mL URINE BUPRENORPHINE NONE DETECTED NONE DETECTED [facility] Comment:Cutoff: 5 ng/mL Fentanyl, urine NONE DETECTED NONE DETECTED [facility] Comment: Cutoff: 5 ng/mL INTERPRETATION FOR TOXICOLOGY PANEL: These results are unconfirmed and should be used for Medical Treatment purposes only. Urine (Urine) 12/27/2024 3:4 2 PM EDT 12/27/2024 4:09 PM EDT Gustaboally Sam MD, YEYO URINE ORDERABLES Final Result [address] [address] * XR Chest Portable (12/27/2024 3:09 PM EDT) Anatomical Region Laterality Modality Chest Computed Radiogr aphy 12/27/2024 3:43 PM EDT Impressions 12/27/2024 4:01 PM EDT Low lung volumes. Subtle left base opacity could be atelectasis versus aspiration. No pulmonary edema. ATTESTATION: I, Kallie So as teaching physician, have reviewed the images for this case and if necessary edited the report originally created by Matthew Anton. Narrative 12/27/2024 4:01 PM EDT XR CHEST PORTABLE Referring clinician's provided indication for this examination in Epic: Fatigue; toxic ingestion COMPARISON: XR CHEST PA AND LATERAL 2 VIEWS FINDINGS: Devices/Tubes/Lines: None. Lungs: Low lung volumes. . Mild elevation of the left hemidiaphragm. Subtle left base opacity could be atelectasis versus aspiration. No pulmonary edema. Pleura: No pleural effusion or pneumothorax. Heart/Mediastinum: Normal heart and mediastinum. Bones/Soft Tissues: No significant abnormality. Procedure Note Janice Hernandez MD - 12/27/2024 XR CHEST PORTABLE Referring clinician's provided indication for this examination in Epic:Fatigue; toxic ingestion COMPARISON: XR CHEST PA AND LATERAL 2 VIEWS FINDINGS: Devices/Tubes/Lines: None. Lungs: Low lung volumes. . Mild elevation of the left hemidiaphragm.Subtle left base opacity could be atelectasis versus aspiration. Nopulmonary edema. Pleura: No pleural effusion or pneumothorax. Heart/Mediastinum: Normal heart and mediastinum. Bones/Soft Tissues: No significant abnormality. IMPRESSION: Low lung volumes. Subtle left base opacity could be atelectasis versusaspiration. No pulmonary edema. ATTESTATION: Kallie Guillen as teaching physician, havereviewed the images for this case and if necessary edited the reportoriginally created by Matthew Anton. Estevan Sam MD, MBA IMG XR CHEST Final R esult * Ethanol, blood (12/27/2024 2:15 PM EDT) ETHANOL <10 <10 mg/dL [facility] Blood 12/27/2024 2:15 PM EDT 12/27/2024 2:23 PM EDT Estevan Sam MD, MBA LAB BLOOD ORDERABLES Fi nal Result [address] [address] * (ABNORMAL) LFTs (hepatic panel) (12/27/2024 2:15 PM EDT) ALKALINE PHOSPHATASE 40 39 - 117 U/L [facility] TOTAL BILIRUBIN 0.7 0.0 - 1.2 mg/dL [facility] DIRECT BILIRUBIN 0.2 0.0 - 0.2 mg/dL [facility] Bilirubin (Indirect) 0.5 0 - 1.5 mg/dL [facility] AST 12 0 - 37 U/L [facility] ALT 10 0 - 40 U/L [facility] TOTAL PROTEIN 6.2(L) 6.5 - 8.0 g/dL [facility] ALBUMIN 3.9 3.9 - 4.8 g/dL [facility] GLOBULIN 2.3 1 - 4.8 g/dL [facility] A/G Ratio 1.70 1.00 - 4.80 RATIO [facility] Blood 12/27/2024 2:15 PM EDT 12/27/2024 2:23 PM EDT Gustabo Sam MD, MBA LAB BLOOD ORDERABLES Fi nal Result Performing Organization Address City/[facility] Co de Phone Number [address] [address] * (ABNORMAL) PT-INR (12/27/2024 2:15 PM EDT) PT 13.0(H) 10.2 - 12.9 sec [facility] INR 1.1 0.9 - 1.1 [facility] Comment:Therapeutic range fo r oral Vitamin K antagonists: 2.0-3.5 Blood 12/27/2024 2:15 PM EDT 12/27/2024 2:23 PM EDT Gustabo Sam MD, MBA LAB BLOOD ORDERABLES Fi nal Result Performing Organization Address City/[facility] Co de Phone Number [address] [phone] * Troponin (12/27/2024 2:15 PM EDT) Pathologist [facility] Troponin-T, HS Gen5 <6 0 - 9 ng/L [facility] Blood 12/27/2024 2:15 PM EDT 12/27/2024 2:23 PM EDT Gustabo Sam MD, MBA LAB BLOOD ORDERABLES Fi nal Result [address] [address] * Lipase (12/27/2024 2:15 PM EDT) Pathologist [facility] LIPASE 27 16 - 63 U/L [facility] Blood 12/27/2024 2:15 PM EDT 12/27/2024 2:23 PM EDT Gustabo Sam MD, MBA LAB BLOOD ORDERABLES Fi nal Result Performing Organization Address City/[facility]/ZIP Co de Phone Number [address] [address] * Lactate (12/27/2024 2:15 PM EDT) [facility] LACTATE 1.19 0.50 - 2.20 mmol/L [facility] Blood 12/27/2024 2:15 PM EDT 12/27/2024 2:22 PM EDT Gustabo Sam MD, MBA LAB BLOOD ORDERABLES Fi nal Result Performing Organization Address City/[facility]/ZIP Co de Phone Number [address] [address] * (ABNORMAL) Acetaminophen level (12/27/2024 2:15 PM EDT) Pathologist [facility] ACETAMINOPHEN <5.0(L) 15.0 - 30.0 ug/mL [facility] Blood 12/27/2024 2:15 PM EDT 12/27/2024 2:23 PM EDT Gustabo Sam MD, MBA LAB BLOOD ORDERABLES Fi nal Result Performing Organization Address City/[facility]/ZIP Co de Phone Number [address] [address] * (ABNORMAL) Salicylates (12/27/2024 2:15 PM EDT) SALICYLATES <0.3(L) 2.8 - 19.9 mg/dL [facility] Blood 12/27/2024 2:15 PM EDT 12/27/2024 2:23 PM EDT [facility] [place], MBA LAB BLOOD ORDERABLES Fi nal Result Performing Organization Address [facility] Co de Phone Number [address] [address] * (ABNORMAL) BI MAMMOGRAM SCREENING WITH TOMOSYNTHESIS WITH CAD (BILATERAL) (01/29/2023 10:13 AM EDT) Anatomical Region Laterality Modality Breast Left, Breast Right, Breast Bilateral Bila teral Mammography 02/11/2023 6:44 PM EDT Impressions 02/12/2023 8:24 AM EDT Recommend additional imaging for questionable new small mass in the outer right breast. This may prove to represent benign superimposed fibroglandular tissue. No other findings suspicious for malignancy. The radiology department will attempt to recall the patient for the additional imaging. BI-RADS CATEGORY: 0 - Incomplete. Need additional imaging evaluation. DENSITY: There are scattered fibroglandular densities. LEFT RECOMMENDATION DUE DATE: 12 Months Left Mammography Screening RIGHT RECOMMENDATION DUE DATE: 1 Month Right Additional Imaging Recall imaging: Spot compression CC, rolled medial CC and 90 degree ML views of the right breast, block off right breast ultrasound in case necessary. Narrative 02/12/2023 8:24 AM EDT Bilateral mammography is performed in conjunction with computed aided detection. 3-D tomography along with 2-D C view imaging was also performed. Comparison made to previous dated as far back as 05/06/2012 and as recent as 11/28/2021. There is a very questionable new partially obscured sub-centimeter mass in the mid-posterior outer right breast approximately 7 cm deep to the nipple on the cc view. No definite correlate on the MLO view. No other suspicious masses, areas of architectural distortion or suspicious microcalcifications. us Mojgan Wang MD IMG MG EXAMS Final Resu lt * (ABNORMAL) Lipid panel (12/30/2022 10:41 AM EDT) HDL 77 mg/dL [facility] Comment: Interpretation <40 mg/dL: Low HDL cholesterol (major risk factor for CHD) Greater than or equal to 60 mg/dL: High HDL cholesterol ( negative risk factor for CHD) HDL - cholesterol is affected by a number of factors, e.g. smoking, excerise, hormones, sex and age. CHOLESTEROL 173 0 - 240 mg/dL [facility] TRIGLYCERIDES 122 30 - 160 mg/dL [facility] LDL 72 50 - 129 mg/dL [facility] Comment: LDL levels in terms of risk for coronary heart disease: <100 mg/dL: Optimal 100-129 mg/dL: Near or above optimal 130-159 mg/dL: Borderline high 160-189 mg/dL: High >190 mg/dL: Very High CARDIAC RISK RATIO 2.2(L) 3.3 - 4.4 C [facility] Blood 12/30/2022 10:4 1 AM EDT 12/30/2022 10:45 AM EDT us Orestes Sarmiento NP LAB BLOOD ORDERABLES Fin al Result [address] [address] * ENDOSCOPY, SIGMOID (06/24/2022 9:31 AM EST) Narrative Transcriptions Paulino Sanchez MD - 06/24/2022 9:31 AM EST [facility] Patient Name: Glen Feldman Attending MD:: PAULINO SANCHEZ MD Procedure Date: 06/24/2022 9:31 AM Date of : 1975 Age: 47 Admit Type: Outpatient Gender: Female Room: [place] [address] Referring MD: Shantel Sands Exam Type: Flexible Sigmoidoscopy Indications: abnormal rectal exam Medications: None Procedure: Informed consent was obtained from the patientafter discussion of the indications, limitations, alternatives, benefits, and risks of the procedure. Risks specifically discussed include but are not limited to medication reactions, missed lesions, bleeding, perforation, or the need for emergent surgery. Throughout the procedure, the patient's blood pressure, pulse, end-tidal CO2, and oxygensaturations were monitored continuously. The Olympus adult variable colonoscope [id number] #7 was introduced through the anus and advanced to the descendingcolon. The flexible sigmoidoscopy was accomplished without difficulty. The patient tolerated the procedure. Complications: No immediate complications. Estimated blood loss:None. Findings: External and internal hemorrhoids were found during retroflexion and during digital exam. Thehemorrhoids were mild. The entire examined colon appeared normal. Impression: - External and internal hemorrhoids. - The entire examined colon is normal. - No specimens collected. Recommendation: - Return to GI office as previously scheduled. will perform hemorrhoid banding at scheduled followup. advised to increase dietary + supplemental fiber intake to 25-30g per day. if that is ineffective, would consider miralax or linzess forconstipation. Paulino Sanchez PAULINO SANCHEZ MD 06/24/2022 9:52:39 AM This report has been signed electronically. Number of Addenda: 0 Note Initiated On: 06/24/2022 9:31 AM Procedure Date: 06/24/2022 9:31:[address] [place] [address] Shantel STROUD GI PROCEDURE ORDERABLES Fi nal Result * Pap Smear (02/06/2022 12:00 AM EDT) 02/06/2022 02/07/2022 8:3 7 AM EDT Narrative SEE NARRATIVE - 02/13/2022 12:45 PM EDT [address] [address] Contract Consultant: Emliy Leavitt MD BUILDING SERVICE WORKER Cytology Report FINAL DIAGNOSIS A. PAP SMEAR (SUREPATH) CE: SPECIMEN ADEQUACY: Satisfactory for evaluation; transformation zone present. INTERPRETATION: NEGATIVE FOR INTRAEPITHELIAL LESION OR MALIGNANCY. Electronically Signed Out By: DANIEL Damon(ASCP) The Pap test is a screening test primarily for squamous cancers and precursors and has associated false-negative and false-positive results. New technologies such as liquid-based preparations may decrease but will not eliminate all false-negative results. Regular sampling and follow-up of unexplained clinical signs and symptoms are recommended to minimize false negative results. PROCEDURES/ADDENDA HPV Testing (Requested) Ordered Date: 02/07/2022 A. PAP SMEAR (SUREPATH) CE: Human Papilloma Virus Test Negative for high-risk human papillomavirus types 16, 18, 45 and the Other high risk probe set (Includes 31, 33, 35, 39, 51, 52, 56, 58, 59, 66, 68) by Get [employer] HR-HPV analysis. Clinical correlation is advised. This HPV test was performed at [facility], [address] [place] [address]. This test has been FDA approved for SurePath cervical cytology specimens. The accuracy and precision of this test for all other specimen sources has been verified in the Cytopathology Laboratory of the [facility] and has not been cleared or approved by the U.S. Food and Drug Administration. Clinical correlation is advised. CLINICAL HISTORY Date of Last Menstrual Period: Not Provided Menstrual History: Unknown Other Clinical Conditions: Screening Pap SPECIMEN SOURCE A: PAP SMEAR (SUREPATH) CE Patient Name: CRISTELA FELDMANELLE : 1975 (Age: 46) Sex: F Institution: [facility] Location: [facility] Date of Collection: 02/06/2022 Date of Reported: 02/13/2022 12:45 Results to: Brenda SALINASP Brenda Barney NP CYTOLOGY ORDERABLES Final Result SEE NARRATIVE from Last 3 Months or Most Recently Relevant to Health Maintenance Insurance [facility] Member Subscriber Plan / Payer (Ef fective 2022-Present) Name:Glen Feldman Relation to Subscriber:Self Name:Glen Feldman Payer ID:[id number] (NAIC) Group ID:Not on file Type:Medicaid Address: [employer] CLAIMS [address] AIDE [place] MD [facility] Member Subscriber Plan / Payer (Ef fective 2022-Present) Name:Glen Feldman Relation to Subscriber:Self Name:Glen Feldman Payer ID:[id number] (NAIC) Group ID:Not on file Type:Medicaid Address: [employer] CLAIMS [address] AIDE [place] MD Member Subscriber Plan / Payer (Ef fective 2022-Present) Name:Glen Feldman Relation to Subscriber:Self Name:Glen Feldman Payer ID:[id number] (NAIC) Group ID:Not on file Type:Medicaid Address: [employer] CLAIMS [address] AIDE [place] MD [facility] Advance Directives For more information, please contact: [phone] (9AM - 5PM [place], Thursday-Thursday) Documents on File Type Date Recorded 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, [address] [address] Historical LMR Provider 03/04/17 Maxine Davis MD [address] [place] [address] Historical LMR Provider 03/04/17 Cornelia Hoang DO [address] [place] [address] Referring Physician Anesthesiology 09/18/20 Additional Source Comments The information contained in this document represents components of the legal health record. It is not the complete legal health record.[facility]
--- OUTSIDE RECORDS SUMMARY | 2025-01-24 10:07 | XMS_ITS | Encounter Summary ---
Author Organization [facility] Address [address] [place] [address] [place] [address] Phone Care Team Providers Care Waste Handling Technician Name Role Phone Kay Overton MD Primary Care Provider [phone] Kay Overton MD Unavailable [phone] Marito Vizcarra MD Unavailable Bibi Sierra MD Unavailable [phone] Lashawn Butterfield NP Unavailable [phone] Justin Leblanc MD Unavailable [phone] Maxine Davis MD Unavailable Panfilo Gates MD Unavailable [phone] Mojgan Wang MD Unavailable [phone] Kay Overton MD Unavailable [phone] Kay Overton MD Unavailable [phone] Shantel Sands Primary Care Provider [phone] Cornelia Hoang DO Unavailable [phone] Cassidy Gibson MD Unavailable [phone] Rachele Marti RN Unavailable Kay Overton MD Primary Care Provider [phone] Encounter Details Date Type Department Care Team (Late st Contact Info) Description 01/15/2018 Procedure Pass [facility], Ct Scan - [address] [address] Social History Tobacco Use Types Packs/Day Years [...] documented as of this encounter Care Teams Waste Handling Technician Relationship Specialty Start Date End Date Kay Overton MD [email or web address] PCP - General 03/03/17 03/28/20 Shantel Sands PA [address] [place] [address] PCP - General Manager Export 03/29/20 10/29/23 Kay Overton MD [address] [place] [phone] [email or web address] PCP - General Family Medicine 10/30/23 Kay Overton MD [address] [place] [address] [email or web address] Historical LMR Provider 03/04/17 2 Marito Vizcarra MD [address] [place] [address] Historical LMR Provider 03/04/17 Bibi Sierra MD [address] [place] [address] Historical LMR Provider 03/04/17 Lashawn Butetrfield NP [address] [place] [address] Historical LMR Provider 03/04/17 2 Justin Leblanc MD [address] [place] [address], [address] [place] [address] Historical LMR Provider 03/04/17 05/25/21 Maxine Davis MD [address] [place] [address] Historical LMR Provider 03/04/17 Panfilo Gates MD [address] [place] [address] Historical LMR Provider 03/04/17 05/25/21 Mojgan Wang MD [address] [place] [address] Historical LMR Provider 03/04/17 05/25/21 Kay Overton MD [address] [place] [address] [email or web address] Insurance Assigned Provider 09/19/17 06/19/18 Kay Overton MD [address] [place] [address] Insurance Assigned Provider 04/23/19 10/26/21 Cornelia Hoang DO [address] [address] Referring Physician Anesthesiology 09/18/20 Cassidy Gibson MD [address] [place] [address] [place] [address] [email or web address] Insurance Assigned Provider 10/26/21 01/24/23 Rachele Marti, RN [address] [place] [address] [email or web address] [employer] Campus Wellness Coordinator 10/13/23 11/10/23 documented as of this encounter Additional Source Comments The information contained in this document represents components of the legal health record. It is not the complete legal health record.[facility]
--- OUTSIDE RECORDS SUMMARY | 2025-01-24 10:07 | XMS_ITS | Encounter Summary ---
Author Organization [facility] Address [address] [place] [address] [place] [address] Phone Care Team Providers Care Music Theory Professor Name Role Phone Kay Overton MD Primary Care Provider [phone] Kay Overton MD Unavailable [phone] Marito Vizcarra MD Unavailable Bibi Sierra MD Unavailable [phone] Lashawn Butterfield NP Unavailable [phone] Justin Leblanc MD Unavailable [phone] Maxine Davis MD Unavailable Panfilo Gates MD Unavailable [phone] Mojgan Wang MD Unavailable [phone] Kay Overton MD Unavailable [phone] Kay Overton MD Unavailable [phone] Shantel Sands Primary Care Provider [phone] Cornelia Hoang DO Unavailable [phone] Cassidy Gibson MD Unavailable [phone] Rachele Marti RN Unavailable Kay Overton MD Primary Care Provider [phone] Encounter Details Date Type Department Care Team (Late st Contact Info) Description 06/02/2018 Transcribe Orders [address] [place] [address] Orestes Sarmiento NP [address] [place], [place] [address] Moderate mixed bipolar I disorder (Primary Dx) [...] documented as of this encounter Results * (ABNORMAL) [place] level (06/02/2018 9:49 AM EST) LITHIUM 0.47(L) 0.50 - 1.00 mmol/L [facility] Blood 06/02/2018 9:49 AM EST 06/02/2018 9:55 AM EST us Orestes Sarmiento NP LAB BLOOD ORDERABLES Fin al Result [address] [address] * Vitamin B12 (06/02/2018 9:49 AM EST) VITAMIN B12 835 232 - 1,245 pg/mL [facility] Blood 06/02/2018 9:49 AM EST 06/02/2018 9:55 AM EST us Orestes Sarmiento TYPESETTING MACHINE TENDER LAB BLOOD ORDERABLES Fin al Result [address] [address] * Prolactin (06/02/2018 9:49 AM EST) PROLACTIN 10.6 4.8 - 23.3 ng/mL [facility] Blood 06/02/2018 9:49 AM EST 06/02/2018 9:55 AM EST [facility] TYPESETTING MACHINE TENDER LAB BLOOD ORDERABLES Fin al Result Performing Organization Address [facility] Co de Phone Number [address] [address] * Folate (06/02/2018 9:49 AM EST) FOLIC ACID 15.9 4.2 - 19.9 ng/mL [facility] Blood 06/02/2018 9:49 AM EST 06/02/2018 9:55 AM EST [facility] TYPESETTING MACHINE TENDER LAB BLOOD ORDERABLES Fin al Result Performing Organization Address [facility] de Phone Number [address] [address] * CBC (06/02/2018 9:49 AM EST) WBC 6.21 3.40 - 11.20 K/uL [facility] RBC 4.14 3.80 - 4.80 M/uL [facility] HGB 12.4 12.0 - 15.0 g/dL [facility] HCT 38.5 36.0 - 46.0 % [facility] PLT 221 130 - 400 K/uL [facility] MCV 93.0 79.0 - 98.0 [facility] MCH 30.0 27.0 - 34.8 pg [facility] MCHC 32.2 31.5 - 36.0 g/dL [facility] RDW 13.0 10.8 - 14.6 % [facility] MPV 10.7 9.4 - 12.4 [facility] NRBC 0.00 0.00 /100 WBCs [facility] ABSOLUTE NRBC 0.00 0.00 K/uL [facility] Blood 06/02/2018 9:49 AM EST 06/02/2018 9:55 AM EST [facility] TYPESETTING MACHINE TENDER LAB BLOOD ORDERABLES Fin al Result Performing Organization Address [facility] Phone Number [address] [address] * TSH with reflex (06/02/2018 9:49 AM EST) TSH 0.86 0.27 - 4.20 uIU/mL [facility] Blood 06/02/2018 9:49 AM EST 06/02/2018 9:55 AM EST [facility] TYPESETTING MACHINE TENDER LAB BLOOD ORDERABLES Fin al Result Performing Organization Address [facility] Phone Number [address] [address] * (ABNORMAL) Lipid panel (06/02/2018 9:49 AM EST) HDL 62 mg/dL [facility] Comment: Interpretation <40 mg/dL: Low HDL cholesterol (major risk factor for CHD) Greater than or equal to 60 mg/dL: High HDL cholesterol ( negative risk factor for CHD) HDL - cholesterol is affected by a number of factors, e.g. smoking, excerise, hormones, sex and age. CHOLESTEROL 158 0 - 240 mg/dL [facility] TRIGLYCERIDES 57 30 - 160 mg/dL [facility] LDL 85 50 - 129 mg/dL [facility] Comment: LDL levels in terms of risk for coronary heart disease: <100 mg/dL: Optimal 100-129 mg/dL: Near or above optimal 130-159 mg/dL: Borderline high 160-189 mg/dL: High >190 mg/dL: Very High CARDIAC RISK RATIO 2.5(L) 3.3 - 4.4 C [facility] Blood 06/02/2018 9:49 AM EST 06/02/2018 9:55 AM EST [facility] TYPESETTING MACHINE TENDER LAB BLOOD ORDERABLES Fin al Result Performing Organization Address [facility]/ZIP Co de Phone Number [address] [address] * (ABNORMAL) Comprehensive metabolic panel (06/02/2018 9:49 AM EST) SODIUM 139 133 - 146 mmol/L [facility] POTASSIUM 4.6 3.3 - 5.1 mmol/L [facility] CHLORIDE 103 96 - 108 mmol/L [facility] CO2 28 21 - 35 mmol/L [facility] BUN 8 6 - 19 mg/dL [facility] CREATININE 0.70 0.5 - 1.5 mg/dL [facility] GLUCOSE 91 70 - 99 mg/dL [facility] ALBUMIN 4.4 3.9 - 4.8 g/dL [facility] TOTAL PROTEIN 6.6 6.5 - 8.0 g/dL [facility] CALCIUM 9.3 8.4 - 10.3 mg/dL [facility] ALKALINE PHOSPHATASE 35(L) 39 - 117 U/L [facility] TOTAL BILIRUBIN 0.4 0.0 - 1.2 mg/dL [facility] AST 20 0 - 37 U/L [facility] ALT 21 0 - 40 U/L [facility] GLOBULIN 2.2 1 - 4.8 g/dL [facility] EGFR 108 >59 mL/min/1.7 3m2 [facility] Comment:If patient is black, multiply result by 1.159. Estimated glomerular filtration rate calculated using the CKD-EPI equation. ANION GAP 13 10 - 20 mmol/L [facility] Blood 06/02/2018 9:49 AM EST 06/02/2018 9:55 AM EST us Orestes Sarmiento NP LAB BLOOD ORDERABLES Fin al Result [address] [address] documented in this encounter Visit Diagnoses Diagnosis Moderate mixed bipolar I disorder- Primary Bipolar I disorder, most recent episode (or current) mixed, moderate documented in this encounter Additional Health Concerns Infection Onset Date Last Indicated Resolved Time CoV-Risk 05/13/2024 05/13/2024 05/24/2024 1:24 AM EST CoV-Risk 08/19/2024 08/19/2024 08/30/2024 1:23 AM EDT documented as of this encounter Care Teams Music Theory Professor Relationship Specialty Start Date End Date Kay Overton MD PCP - General 03/03/17 03/28/20 Shantel Sands PA [address] [place] [address] PCP - General Outpatient Scheduler 03/29/20 10/29/23 Kay Overton MD [address] [place] [phone] [email or web address] PCP - General Family Medicine 10/30/23 Kay Overton MD [address] [place] [address] Historical LMR Provider 03/04/17 2 Marito Vizcarra MD [address] [place] [address] Historical LMR Provider 03/04/17 Bibi Sierra MD [address] [place] [address] Historical LMR Provider 03/04/17 Lashawn Butterfield, TYPESETTING MACHINE TENDER [address] [place] [address] Historical LMR Provider 03/04/17 2 Justin Leblanc MD [address] [place] [address], [address] [place] [address] Historical LMR Provider 03/04/17 05/25/21 Maxine Davis MD [address] [place] [address] Historical LMR Provider 03/04/17 Panfilo Gates MD [address] [place] [address] Historical LMR Provider 03/04/17 05/25/21 Mojgan Wang MD [address] [place] [address] Historical LMR Provider 03/04/17 05/25/21 Kay Overton MD [address] [place] [address] Insurance Assigned Provider 09/19/17 06/19/18 Kay Overton MD [address] [place] [address] Insurance Assigned Provider 04/23/19 10/26/21 Cornelia Hoang DO [address] [place] [address] Referring Physician Anesthesiology 09/18/20 Cassidy Gibson MD [address] [place] [address] [place] [address] [email or web address] Assigned Provider 10/26/21 01/24/23 Rachele Marti RN [address] [place] [address] [email or web address] Voice Over Announcer 10/13/23 11/10/23 documented as of this encounter Additional Source Comments The information contained in this document represents components of the legal health record. It is not the complete legal health record.[facility]
--- OUTSIDE RECORDS SUMMARY | 2025-01-24 10:07 | XMS_ITS | Encounter Summary ---
Author Organization [facility] Address [address] [place] [address] [place] [address] Phone Care Team Providers Care Fork Lift Truck Operator Name Role Phone Marito Vizcarra MD Unavailable Maxine Davis MD Unavailable Shantel Sands Primary Care Provider [phone] Cornelia Hoang DO Unavailable [phone] Cassidy Gibson MD Unavailable [phone] Rachele Marti RN Unavailable Kay Overton MD Primary Care Provider [phone] Encounter Details Date Type Department Care Team (Late st Contact Info) Description 06/24/2022 Procedure Pass [facility] Endoscopy Admitting Dept Virtual Department [address] [place] [address] Social History Tobacco Use Types Packs/Day Years [...] documented as of this encounter Care Teams Fork Lift Truck Operator Relationship Specialty Start Date End Date Shantel Sands PA [address] [place] [address] PCP - General Practice Coordinator 03/29/20 10/29/23 Kay Overton MD [address] [place] [address] [email or web address] PCP - General Family Medicine 10/30/23 Marito Vizcarra MD [address] [address] [email or web address] Historical LMR Provider 03/04/17 Maxine Davis MD [address] [address] [email or web address] Historical LMR Provider 03/04/17 Cornelia Hoang DO [address] [place] [address] Referring Physician Anesthesiology 09/18/20 Cassidy Gibson MD [address] [place] [address] [place] [phone] [email or web address] Insurance Assigned Provider 10/26/21 01/24/23 Rachele Marti RN [address] [place] [id number] [email or web address] [employer] Regional Facilities Specialist 10/13/23 11/10/23 documented as of this encounter Additional Source Comments The information contained in this document represents components of the legal health record. It is not the complete legal health record.[facility]
--- OUTSIDE RECORDS SUMMARY | 2025-01-24 10:07 | XMS_ITS | Encounter Summary ---
Author Organization [facility] Address [address] [place] [address] [place] [address] Phone Care Team Providers Care Satellite Specialist Name Role Phone Marito Vizcarra MD Unavailable Maxine Davis MD Unavailable Kay Overton MD Unavailable Shantel Sands Primary Care Provider [phone] Cornelia Hoang DO Unavailable [phone] Cassidy Gibson MD Unavailable [phone] Rachele Marti RN Unavailable Kay Overton MD Primary Care Provider [phone] Encounter Details Date Type Department Care Team (Late st Contact Info) Description 09/09/2021 Procedure Pass [facility] - [address] [place] [address] Social History Tobacco Use Types Packs/Day Years [...] documented as of this encounter Care Teams Satellite Specialist Relationship Specialty Start Date End Date Shantel Sands PA [address] [place] [address] PCP - General Charge Weigher 03/29/20 10/29/23 Kay Overton MD [address] [place] [phone] [email or web address] PCP - General Family Medicine 10/30/23 Marito Vizcarra MD [address] [place] [address] [email or web address] Historical LMR Provider 03/04/17 Maxine Davis MD [address] [place] [address] Historical LMR Provider 03/04/17 Kay Overton MD [address] [place] [address] Insurance Assigned Provider 04/23/19 10/26/21 Cornelia Hoang DO [address] [place] [address] Referring Physician Anesthesiology 09/18/20 Cassidy Gibson MD [address] [place] [address] [place] [address] [email or web address] Insurance Assigned Provider 10/26/21 01/24/23 Rachele Marti RN [address] [place] [address] [email or web address] [employer] Toy Assembly Supervisor 10/13/23 11/10/23 documented as of this encounter Additional Source Comments The information contained in this document represents components of the legal health record. It is not the complete legal health record.[facility]
[2025-01-24 10:40] LABS: Alanine Aminotransferase 133 U/L (0-31); Albumin Level 4.3 g/dL (3.5-5.0); Alkaline Phosphatase 58 U/L (39-117); Anion Gap 8 (12-20); Aspartate Amino Transferase 56 U/L (5-31); Blood Urea Nitrogen 8 mg/dL (9-16); Calcium 9.1 mg/dL (8.4-10.2); Carbon Dioxide 30 mmol/L (22-29); Chloride 108 mmol/L (96-108); Estimated Glomerular Filt Rate > 60; Iron 90 mcg/dL (30-160); Magnesium 2.0 mg/dL (1.6-2.6); Percent Iron Saturation 29 % (15-50); Potassium 4.3 mmol/L (3.3-5.1); Sodium 142 mmol/L (135-145); Total Iron Binding Capacity 307 mcg/dL (228-428); Total Protein 6.8 g/dL (6.5-8.0); Unsaturated Iron Binding 217 ug/dL
[2025-01-24 10:59] LABS: Free T4 (Free Thyroxine) 0.77 ng/dL (0.71-1.85); Thyroid Stimulating Hormone 2.76 uIU/mL (0.32-4.0)
[2025-01-24 11:03] LABS: Folate 10.2 ng/mL (> or = 4.0); Vitamin B12 280 pg/mL (200-900)
== END 2025-01-24 08:53 | disposition home or self-care (01) ==
LOC: HO.LAB 08:52
PROVIDERS: PCP Physician Assistant Medical; Visit Provider Psychiatry & Neurology Psychiatry
DX: F39 Unspecified mood [affective] disorder (principal)
CPT/HCPCS: 36415; 80053; 82306; 82550; 82607; 82746; 83090; 83540; 83735; 84425; 84439; 84443; 85025; 85652; 93005

== ENCOUNTER → 2025-01-24 09:02 | Outpatient (BNV) | payer MEDICAID, SELFPAY | PROVIDERS: PCP Physician Assistant Medical; Visit Provider Internal Medicine Cardiovascular Disease | DX: Z13.6 Encounter for screening for cardiovascular disorders (principal) | CPT/HCPCS: 93010 ==

== ENCOUNTER 2025-01-27 13:17 | Outpatient (REF) | payer MEDICAID, SELFPAY ==
[2025-01-27 14:26] LABS: Lithium 1.06 mmol/L (0.60-1.20)
[2025-01-27 14:31] LABS: Acetaminophen LAB 3 mcg/mL (<30)
[2025-01-27 14:40] LABS: Gamma Glutamyl Transpeptidase 48 U/L (7-33)
[2025-01-27 14:54] LABS: Ferritin 24 ng/mL (10-250)
[2025-01-27 15:27] LABS: CT PCR Urine NOT DETECTED (Not Detect.); NG PCR Urine NOT DETECTED (Not Detect.)
[2025-01-28 09:14] LABS: HBS Num1 1.10 mIU/mL (0-7.99); HBc Num1 0.07 S/CO (0.00-0.79); HBsAGNum1 0.79 S/CO (0.00-0.99); HIV Num 1 0.05 S/CO (0.00-0.99); Hepatitis B Surface Antigen Negative (Negative); ~HepC Num1 0.09 S/CO (0.00-0.79); ~Hepatitis B Surface Antibody NONREACTIVE (Nonreactive); ~Hepatitis C Antibody Nonreactive (Nonreactive)
[2025-01-28 09:30] LABS: Syphilis Screen Nonreactive (Nonreactive)
[2025-02-03 09:28] LABS: ~Hepatitis A Antibody IgG 7.98 S/CO (0.00-0.99)
== END 2025-01-27 13:18 | disposition home or self-care (01) ==
LOC: HO.LAB 13:17
PROVIDERS: PCP Physician Assistant Medical; Visit Provider Psychiatry & Neurology Psychiatry
DX: Z11.3 Encounter for screening for infections with a predominantly sexual mode of transmission (principal); Z11.8 Encounter for screening for other infectious and parasitic diseases; Z11.4 Encounter for screening for human immunodeficiency virus [HIV]; Z11.59 Encounter for screening for other viral diseases; Z01.84 Encounter for antibody response examination; F31.32 Bipolar disorder, current episode depressed, moderate
CPT/HCPCS: 80143; 80178; 82728; 82977; 86140; 86644; 86645; 86704; 86706; 86708; 86780; 86803; 87340; 87389; 87491; 87591

== ENCOUNTER 2025-01-27 13:30 | Outpatient (RCR) | payer OTHER, SELFPAY ==
[2025-01-13 10:56] VITALS: BP 100/64; PULSE 60; TEMP 37.6; BMI 25.1
--- NOTE | 2025-01-19 15:59 | HO.PHP ---
Clients case was open and reviewed in teams.
--- NOTE | 2025-01-19 20:10 | HO.PS.ADMBH ---
HPI Date of Service: 01/18/25 Chief Complaint: bipolar Sources of Information: patient interviewed, chart reviewed and crisis/core team assessment reviewed HPI Narrative: Patient is a 49 yo female with history of Bipolar 1 disorder, anxiety disorder, depression, chronic LBP, arthritis, who is being stepped down from recent IPLOC after being admitted after presenting to ED following an intentional lithium overdose. Patient tells me today that she was admitted for rachael and was initially not interested in discussing this again but indicated it may have related to some misunderstanding with her 17 yo daughter. Patient reports this was her first suicide attempt, and her 2nd inpatient hospitalization. She reports a history of manic episodes and depression, both in and outside the context of alcohol use. She says she had been sober from alcohol for 4 years when she started getting manic in 2022, and did not relapse on alcohol until last summer and had been drinking sporadically over the past year until her her attempt last month. She says the alcohol definitely exacerbated her mood symptoms. She reports the rachael has come down and she is feeling better than I was (before hospitalization) . She says she is still struggling to maintain her homeostasis . She reports struggling with stability more recently since her mother's in October 2023, and has been experiencing a number of manic and a few hypomanic episodes in the past year 1-2 years. She report meeting someone online in Feb 2023 and coming off her medications by Spring 2023 and was inconsistent with following up with her outpatient psych provider. She has traveled to [place] 4 times since November 2023, last time was in July. 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 She notes that cognitive function, memory and executive dysfunction have become more of an issue in recent years and wonders if this may be related to hormonal changes related to perimenopause. She was started on lithium in the hospital and discharged on 900 mg, following discharge her OP provider added another 300 mg to her regime 3 weeks ago. Complains of mild tremor due to lithium. Otherwise tolerating and states she has been compliant. Struggling with sleep, Seroquel at 50 mg, reports trazodone doesn't work and has not been taking this regularly. Past Psychiatric History: [place] x2: [place] [facility] admission for SA by OD. 2023 at [facility] for manic episode. No prior PHP, respite, detox or rehab admissions SA x1: 12/2024 intention overdose on lithium Psychiatrist: Olga Yates CLERK ENTRY LEVEL Therapist: Tamera Quintanilla Ed.D PCP: Shantel Sands PA-C Medication trial: Lamictal, gabapentin, pregabalin, Depakote, Seroquel, Abilify, Latuda Risperidone (AE), Vraylar, Ambien, Disautel, Trazodone does not work CURRENT MEDICATIONS: lithium ER 450 mg BID lithium ER 300 mg QHS quetiapine 50 mg qhs trazodone 75 mg qhs PRN sleep ibuprofen 600 mg TID prn pain lidocaine patch qd back pain tizanidine 4 mg TID prn muscle spasm [facility] Medical History (Updated 02/01/25 @ 06:48 by Zahra Hernandez MD) Patellofemoral stress syndrome Arthropathy of spinal facet joint Glaucoma Migraine DDD (degenerative disc disease), lumbar Fibromyalgia Surgical History (Updated 01/13/25 @ 10:55 by Ericka De Guzman RN) Hx of appendectomy Family History: She was adopted when she was an infant. Biological mom passed, her dad has bipolar schizophrenic. Social History: She is single, have 2 children S 17 and 23 years old. She has contact with them. 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 Substance History: Hx of AUD, reports sporadic use in the past year, some binge behaviors, last drink 12/27/24, was sober for 4 years until 2023. Denies any current craings or urges to drink Marijuana use: is reportedly a newer (within past year) Denies any other drug use Trauma History: Denies trauma history Diagnostics Vital Signs (24Hr): BMI result Body Mass Index 25.1 Meds/Allergies Meds Home Medications ?Medication ?Instructions ?Recorded ?Confirmed ?Type ibuprofen 600 mg tablet 600 mg PO TID PRN Pain 12/28/24 01/13/25 History lithium carbonate 300 mg 300 mg PO BEDTIME 01/13/25 01/13/25 History tablet,extended release quetiapine 50 mg tablet (Seroquel) 50 - 100 mg PO BEDTIME 01/13/25 01/13/25 History Allergies Allergies Allergy/AdvReac Type Severity Reaction Status Date / Time No Known Allergies Allergy Unknown UNKNOWN Unverified 02/02/20 17:33 Mental Status Exam Mental Status Exam Narrative: Alert, oriented, in no acute distress. Calm, semi-cooperative, vague, distracted. No psychomotor agitation or neurovegetative retardation. Eye contact maintained. Mood depressed, affect constricted. Speech normal. Thought process scattered, linear, coherent, no FOI or TRINY. Thought content related to stressors, executive dysfunction, feeling overwhelmed, some transient helplessness and hopelessness, denies SI, intention or plan. Denies any aggressive ideation. No paranoia or delusional content elicited. No evidence of psychosis. Insight and judgment fair but adequate. Assessment & Plan Assessment & Plan (1) Bipolar 1 disorder, depressed, moderate: Status: Acute Code(s): F31.32 - Bipolar disorder, current episode depressed, moderate (2) Alcohol use disorder: Status: Acute Code(s): F10.90 - Alcohol use, unspecified, uncomplicated Plan Admit to [facility] VS reviewed: afebrile, BP 100/64;?60 bpm patient is ambivalent about staying on lithium but agrees to for the time being start Vraylar 1.5 - 3 mg qd may increase Seroquel up to 200 mg qhs for sleep continue other regular medications for now Routine lab work as indicated, will check lithium level next week (last level 12/29 was 0.21) EKG, routine for baseline QTc for medication considerations as indicated UDS as indicated [facility] reviewed Continue to monitor as per protocol Patient educated on: diagnosis, medication risk/benefits and substance abuse Informed Consent: understands Reason for continued partial hosp. stay Substantial Risk for: inability to function and med/psych decompensation Certification I certify that partial hospital treatment is medically necessary due to the symptoms and problems resulting from the patient's mental illness and the failure to treat the patient at the partial hospital level of care would likely result in the patient requiring inpatient psychiatric care which could not be prevented at a less intensive level of care. Time Spent With Patient Time: Total time managing care of this patient today __90__ minutes.
--- NOTE | 2025-01-24 15:58 | HO.PHPPROGNO ---
Subjective Subjective Date of Service: 01/23/25 Reason For Visit: bipolar Interim History: Patient seen for follow up. Some odest improvements in emotional regulation. Main complaint relates to memory and cognitive function which impact her anxiety and self cofidence. She presents as somewhat scattered and having some difficult with making tight arguments, Patient reports sleep has improved, has continued at 100 mg Seroquel, has not needed to increase above. Also reports getting her period today, but has not had one in many months and has been amidst change in life for past few years. Denies any alcohol use or substance in interim. Denies any thoughts of harming self or others. Medication Compliance: Yes Side effects from medications: No Attending Groups: Yes Review of Systems Acute medical concerns: No Mental Status Exam Mental Status Exam Narrative: Alert, oriented, in no acute distress. Calm, cooperative, engaged. No psychomotor agitation or neurovegetative retardation. Eye contact maintained. Mood anxious, affect variable, mood congruent. Speech normal. Thought process scattered, linear, coherent. Thought content related to stressors, denies any hopelessness or SI. Denies any aggressive ideation or HI. No paranoia or delusional content elicited. No evidence of psychosis. Insight and judgment - fair but adequate. Diagnostics Vital Signs (24Hr): BMI result Body Mass Index 25.1 Assessment & Plan Assessment & Plan (1) Bipolar 1 disorder, depressed, moderate: Status: Acute Code(s): F31.32 - Bipolar disorder, current episode depressed, moderate (2) Alcohol use disorder: Status: Acute Code(s): F10.90 - Alcohol use, unspecified, uncomplicated Plan continue PHP start bupropion SR 50-100 mg qam continue Vraylar 3 mg qd may continue Seroquel up to 200 mg qhs for sleep if needed continue other regular medications for now Routine lab work as indicated EKG, routine for baseline QTc for medication considerations as indicated UDS as indicated VS reviewed: afebrile, BP 100/64;?60 bpm Continue to monitor Patient educated on: diagnosis and medication risk/benefits Informed Consent: understands Reason for contiued partial hosp. stay Substantial Risk for: inability to function and med/psych decompensation Certification I certify that partial hospital treatment is medically necessary due to the symptoms and problems resulting from the patient's mental illness and the failure to treat the patient at the partial hospital level of care would likely result in the patient requiring inpatient psychiatric care which could not be prevented at a less intensive level of care. Total time managing care of this patient today __30__ minutes. Discharge Plan Discharge Attending provider: Zahra Hernandez Medications: New bupropion HCl 100 mg tablet sustained-release 12 hr 100 mg PO QAM Qty: 15 0RF acetaminophen 500 mg tablet 500 mg PO Q6H PRN (Reason: fever or pain) Qty: 60 0RF propranolol 10 mg tablet 10 mg PO TID PRN (Reason: anxiety) Qty: 21 0RF Continued lithium carbonate 450 mg Tablet Extended Release 450 mg PO BID Qty: 30 0RF Rx Instructions: Take with 300 mg tablet at bedtime. trazodone 50 mg Tablet 75 mg PO BEDTIME PRN (Reason: insomnia) Qty: 30 0RF polyethylene glycol 3350 17 gram Powder In Packet 17 g PO DAILY Qty: 14 0RF lidocaine [Lidocaine Pain Relief] 4 % Adhesive Patch,Medicated 1 patch transdermal DAILY Qty: 15 0RF Protocol: Apply to: Apply to: lower back for pain tizanidine 4 mg tablet 4 mg PO TID PRN (Reason: muscle spasm) Qty: 21 0RF clonazepam 0.5 mg tablet 0.5 mg PO DAILY PRN (Reason: severe anxiety) Qty: 14 0RF Patient Comments: I never picked up the clonazepam multivitamin with folic acid [Daily-Bryant (with folic acid)] 400 mcg tablet 1 tab PO DAILY Qty: 30 0RF lithium carbonate 300 mg Tablet Extended Release 300 mg PO BEDTIME Patient Comments: Filled 01/12/25. Rx Instructions: Take with 450 mg tablet at bedtime. quetiapine [Seroquel] 50 mg Tablet 50 - 100 mg PO BEDTIME Patient Comments: Filled 01/12/25. Vraylar 3 mg capsule 3 mg PO BEDTIME Qty: 30 0RF melatonin 3 mg Tablet 9 mg PO BEDTIME Qty: 60 0RF Changed pregabalin 50 mg Capsule 150 mg PO BID Qty: 30 0RF Discontinued metronidazole 500 mg Tablet 500 mg PO Q12H Qty: 6 0RF No Action ibuprofen 600 mg tablet 600 mg PO TID PRN (Reason: Pain) Stand Alone Forms: Patient Portal Discharge page Patient Education: Bipolar Disorder (ED), Bipolar Disorder (DC) Print Language: Citizen [place]
--- NOTE | 2025-01-27 18:42 | P.PNPSP_ITS ---
Subjective Subjective Date of Service: 01/27/25 Reason For Visit: bipolar Interim History: Patient seen for follow-up, anticipating discharge at the end of program today.? Overall stable, complaints of ADHD symptoms and chronic fatigue and non-specific chronic body aches. Denies any fever, chills, weight change. We review recent labwork results, there is a sharp increase in transaminases (vs normal levels one month ago). Denies any recent sick contacts or risky behavior, although josé kaye has been in the past. She denies any recent alcohol use. She has been taking Tylenol regularly, as well as NSAIDs, on a daily basis. Says she does not take beyond recommended allowance. Seroque dose never exceeds 100 mg/d. Will send to lab today to follow up on liver findings. Reports no acute issues or concerns. Medication compliant, medications well- tolerated. Denies any adverse effects.? Mood is stable.? Denies any hopelessness or SI. Denies thoughts of harming self or others at this time. Denies any aggressive ideation or HI. Denies any paranoia or AH or VH. Sleep, appetite, energy stable. Medication Compliance: Yes Side effects from medications: No Attending Groups: Yes Review of Systems Acute medical concerns: No Mental Status Exam Mental Status Exam Narrative: Alert, oriented, in no acute distress. Calm, cooperative, engaged. No psychomotor agitation or neurovegetative retardation. Eye contact maintained. Mood anxious, affect variable, mood congruent. Speech normal. Thought process linear, coherent. Thought content related to stressors, denies any hopelessness or SI. Denies thoughts of harming self or others. Denies any aggressive ideation or HI. No paranoia or delusional content elicited. No evidence of psychosis. Insight and judgment - fair but adequate. Diagnostics Vital Signs (24Hr): BMI result Body Mass Index 25.1 Assessment & Plan Assessment & Plan (1) Bipolar 1 disorder, depressed, moderate: Status: Acute Code(s): F31.32 - Bipolar disorder, current episode depressed, moderate (2) Alcohol use disorder: Status: Acute Code(s): F10.90 - Alcohol use, unspecified, uncomplicated (3) Elevated transaminase level: Status: Acute Code(s): R74.01 - Elevation of levels of liver transaminase levels Plan Discharge from [facility] Follow-up lab work, will check LIBIA level, Hep A,B,C panel, HIV, CMV. (will not order ai panel given ESR, CRP wnl). Will follow-up by phone next week to review findings. Continue regular medications? Refills sent to pharmacy Will defer further medication management to outpatient provider *Safety plan reviewed *Discharge diagnoses, treatment course, discharge plan have been reviewed with patient (including medication regime, medication management, potential side effects) as well as treatment rationale were also revisited *Discharge paperwork signed and given to patient, copy sent for scanning to chart Patient educated on: diagnosis, medication risk/benefits and medical condition Informed Consent: understands Reason for contiued partial hosp. stay Substantial Risk for: stable for discharge Certification I certify that partial hospital treatment is medically necessary due to the symptoms and problems resulting from the patient's mental illness and the failure to treat the patient at the partial hospital level of care would likely result in the patient requiring inpatient psychiatric care which could not be prevented at a less intensive level of care. Total time managing care of this patient today _40___ minutes. Discharge Plan Discharge Attending provider: Zahra Hernandez Medications: New bupropion HCl 100 mg tablet sustained-release 12 hr 100 mg PO QAM Qty: 15 0RF acetaminophen 500 mg tablet 500 mg PO Q6H PRN (Reason: fever or pain) Qty: 60 0RF propranolol 10 mg tablet 10 mg PO TID PRN (Reason: anxiety) Qty: 21 0RF Continued lithium carbonate 450 mg Tablet Extended Release 450 mg PO BID Qty: 30 0RF Rx Instructions: Take with 300 mg tablet at bedtime. trazodone 50 mg Tablet 75 mg PO BEDTIME PRN (Reason: insomnia) Qty: 30 0RF polyethylene glycol 3350 17 gram Powder In Packet 17 g PO DAILY Qty: 14 0RF lidocaine [Lidocaine Pain Relief] 4 % Adhesive Patch,Medicated 1 patch transdermal DAILY Qty: 15 0RF Protocol: Apply to: Apply to: lower back for pain tizanidine 4 mg tablet 4 mg PO TID PRN (Reason: muscle spasm) Qty: 21 0RF clonazepam 0.5 mg tablet 0.5 mg PO DAILY PRN (Reason: severe anxiety) Qty: 14 0RF Patient Comments: I never picked up the clonazepam multivitamin with folic acid [Daily-Bryant (with folic acid)] 400 mcg tablet 1 tab PO DAILY Qty: 30 0RF lithium carbonate 300 mg Tablet Extended Release 300 mg PO BEDTIME Patient Comments: Filled 01/12/25. Rx Instructions: Take with 450 mg tablet at bedtime. quetiapine [Seroquel] 50 mg Tablet 50 - 100 mg PO BEDTIME Patient Comments: Filled 01/12/25. Vraylar 3 mg capsule 3 mg PO BEDTIME Qty: 30 0RF melatonin 3 mg Tablet 9 mg PO BEDTIME Qty: 60 0RF Changed pregabalin 50 mg Capsule 150 mg PO BID Qty: 30 0RF Discontinued metronidazole 500 mg Tablet 500 mg PO Q12H Qty: 6 0RF No Action ibuprofen 600 mg tablet 600 mg PO TID PRN (Reason: Pain) Stand Alone Forms: Patient Portal Discharge page Patient Education: Bipolar Disorder (ED), Bipolar Disorder (DC) Print Language: [place]
--- NOTE | 2025-01-31 13:52 | PC.NURSE ---
Addendum entered by Ericka De Guzman RN 02/08/25 16:10: On 02/08/25 I spoke to Betsy DE LEON from patient's PCP office of [facility] to confirm receipt of faxed lab results faxed on 02/02/25 with Betsy DE LEON. Betsy unable to find thus faxed results again today along with verbal report of lab results RBC 4.19, Neut 76.5, Lymph 15.9, CO2 30, Anion gap 8, BUN 8, GTT 48, AST 56, ALT 133, Vit D 29.9, CMV Igg Ab 9.50, CMV Igm Ab less than 30. Also reviewed Lab results of Hepatitis A IgG is reactive which was faxed as well. Betsy to review with [facility] and set up an appointment with Ligia Feldman to f/u on the results. Dr. Hernandez stated to me that she also spoke to Petey about the results and recommended she f/u with her PCP. Original Note: Labs, RBC 4.19, Neut 76.5, Lymph 15.9, CO2 30, Anion gap 8, BUN 8, GTT 48, AST 56, ALT 133, Vit D 29.9, CMV Igg Ab 9.50, CMV Igm Ab less than 30. Dr Hernandez is aware. No new orders.
== END 2025-01-27 23:59 | disposition home or self-care (01) ==
LOC: HO.PHPA 13:30
PROVIDERS: Visit Provider Psychiatry & Neurology Psychiatry
DX: F31.32 Bipolar disorder, current episode depressed, moderate (principal); F10.90 Alcohol use, unspecified, uncomplicated; R74.01 Elevation of levels of liver transaminase levels; Z79.899 Other long term (current) drug therapy
CPT/HCPCS: 90791; 90853

== ENCOUNTER → 2025-01-27 13:30 | Outpatient (BNV) | payer OTHER, SELFPAY | PROVIDERS: Visit Provider Psychiatry & Neurology Psychiatry | DX: F31.32 Bipolar disorder, current episode depressed, moderate (principal); F10.90 Alcohol use, unspecified, uncomplicated; R74.01 Elevation of levels of liver transaminase levels | CPT/HCPCS: 99214 ==